=== PATIENT | female | born 1965 | race Caucasian/White ===

== ENCOUNTER 2017-04-23 11:00 | Outpatient (RCR) | payer MEDICAID, SELFPAY ==
--- NOTE | 2017-03-20 16:10 | HMH.PTOPEV ---
Outpatient Rehab Evaluation Rehab OP Evaluation Start: 03/20/17 13:02 Freq: Status: Active Protocol: Document 03/20/17 13:03 FANY (Rec: 03/20/17 13:36 FANY [id number]) Electronically Signed By Sundar Mcmanus, PT 03/20/17 13:03 Outpatient Therapy Subjective History Subjective History Pt reports h/o chronic L elbow and wrist pain beginning ~6 months ago. Pt reports pain radiates from L wrist (ulnar side) to L elbow (ulnar side), with intermittent episodes of N&T in L 4th and 5th digits. PMH: bilateral CT release sx's ~1 yr ago. 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 Strength Symptom Type Ache Sharp Dull Numbness Tingling Symptoms Relieved By Heat Symptoms Aggravated By Physical Activity Lifting Prior Functional Limitations Lifting Housework Current Functional Limitations Reaching Lifting Symptom Description Constant but Variable Level of pain today (0-10) 7 Pain scale - at its best (0-10) 7 Pain scale - at its worst (0-10) 7 Shoulder/Elbow Eval Shoulder Objective Measurements Elbow Objective Measurements Palpation Tenderness Elbow Palpation Finding Tenderness tenderness over the medial epicondyle left elbow exam standard Elbow MMT Bilateral Elbow/Forearm Strength Reason Not WFL Measured Elbow Special Tests Elbow Tinel's Sign Negative Right Positive Left Wrist/Hand Eval Palpation Tenderness/Visual Exam Wrist pain left tenderness wrist exam standard left Wrist/Hand Palpation Findings Tenderness Wrist/Hand Palpation Overall Comment CARPAL TUNNEL, CUBITAL TUNNEL Flexibility Deficits Wrist Extensors Muscle Length (R) WFL (L) WFL Wrist Flexors Muscle Length (R) WFL (L) WFL Supinator Muscle Length (R) WFL (L) WFL Pronator Muscle Length (R) WFL (L) WFL Wrist Range of Motion Wrist ROM Reason Not Measured Within Functional Limits Wrist Manual Muscle Testing Right Wrist Strength Reason Not Measured WFL Left Wrist Extension Strength
== END 2017-04-23 11:01 | disposition home or self-care (01) ==
LOC: PT 11:00
PROVIDERS: Family Provider Emergency Medicine; PCP Emergency Medicine; Visit Provider Orthopaedic Surgery
DX: G56.23 Lesion of ulnar nerve, bilateral upper limbs (principal)
CPT/HCPCS: 97010; 97014; 97033; 97035; 97110; 97140; 97163; G0283

== ENCOUNTER → 2017-05-25 09:59 | Outpatient (CLI) | payer MEDICAID, SELFPAY | PROVIDERS: Family Provider Emergency Medicine; PCP Emergency Medicine; Visit Provider Emergency Medicine | DX: J44.9 Chronic obstructive pulmonary disease, unspecified (principal) | CPT/HCPCS: 94060 ==

== ENCOUNTER → 2017-05-28 13:03 | Outpatient (POV) | payer MEDICAID, SELFPAY ==
[2017-05-28 13:24] VITALS: BP 139/88; PULSE 76; RESP 18; TEMP 36.2; O2SAT 95; BMI 23.3
--- NOTE | 2017-05-28 13:49 | HMH.PAINSOAP ---
[facility] Pain Management SOAP Note Subjective:: Patient is a pleasant 51-year-old white female who presents today as a follow-up after her trigger point injections back in February. Patient states that she had 80% relief for up to 8 weeks. Patient's pain has come back. Patient rates her pain a 7 out of 10 today. Patient's pain mainly in her upper neck going down through her bilateral trapezius. She states that she gets knots in these areas. Patient is currently being medically managed with gabapentin 800 mg 1 p.o. 4 times daily from her primary care physician. Due to past urine drug screens we are unable to prescribe her medications. ROS General: no recent weight change, no fever, no sleep disturbances Respiratory: no cough, no shortness of air, no recurring pulmonary infections Cardiovascular/Peripheral Vascular: No chest pain, No palpitations, no edema, no shortness of breath. Gastrointestinal: no incontinence, normal bowel movements reported Genitourinary: no incontinence Musculoskeletal: Neck pain, bilateral trapezius pain Psychiatric: normal mood/ affect, Neurological: [denies weakness in extremities], [denies balance issues] Objective:: Physical Exam General: Alert and oriented x3, no acute distress, pleasant and cooperative, [on room air] Lungs: Resps E/U, Symmetrical chest expansion, Eyes: PERRL Musculoskeletal: Flexion and extension of cervical spine somewhat guarded secondary to pain, deep tendon reflexes normal, strength in upper and lower extremities [5/5], normal gait noted, palpable trigger points noted on bilateral cervical paraspinous and trapezius. Neurological: speech clear, iron piler equal, no gross sensory deficits Assessment:: Myofascial pain syndrome Plan:: We will schedule trigger point injections of the cervical paraspinous bilaterally along with the bilateral trapezius. Patient gets good relief from these injections. I will follow-up with this patient 2 weeks after her injections and reassess her symptoms. Patient's tried and failed conservative measures such as physical therapy and anti-inflammatories. This note was dictated using voice recognition software and may contain errors or omissions
--- NOTE | 2017-05-28 13:52 | P.CONS_ITS ---
[facility] Pain Management SOAP Note Subjective:: Patient is a pleasant 51-year-old white female who presents today as a follow- up after her trigger point injections back in February. Patient states that she had 80% relief for up to 8 weeks. Patient's pain has come back. Patient rates her pain a 7 out of 10 today. Patient's pain mainly in her upper neck going down through her bilateral trapezius. She states that she gets knots in these areas. Patient is currently being medically managed with gabapentin 800 mg 1 p.o. 4 times daily from her primary care physician. Due to past urine drug screens we are unable to prescribe her medications. ROS General: no recent weight change, no fever, no sleep disturbances Respiratory: no cough, no shortness of air, no recurring pulmonary infections Cardiovascular/Peripheral Vascular: No chest pain, No palpitations, no edema, no shortness of breath. Gastrointestinal: no incontinence, normal bowel movements reported Genitourinary: no incontinence Musculoskeletal: Neck pain, bilateral trapezius pain Psychiatric: normal mood/ affect, Neurological: [denies weakness in extremities], [denies balance issues] Objective:: Physical Exam General: Alert and oriented x3, no acute distress, pleasant and cooperative, [ on room air] Lungs: Resps E/U, Symmetrical chest expansion, Eyes: PERRL Musculoskeletal: Flexion and extension of cervical spine somewhat guarded secondary to pain, deep tendon reflexes normal, strength in upper and lower extremities [5/5], normal gait noted, palpable trigger points noted on bilateral cervical paraspinous and trapezius. Neurological: speech clear, auto body customizer equal, no gross sensory deficits Assessment:: Myofascial pain syndrome Plan:: We will schedule trigger point injections of the cervical paraspinous bilaterally along with the bilateral trapezius. Patient gets good relief from these injections. I will follow-up with this patient 2 weeks after her injections and reassess her symptoms. Patient's tried and failed conservative measures such as physical therapy and anti-inflammatories. This note was dictated using voice recognition software and may contain errors or omissions
== END ==
PROVIDERS: Family Provider Emergency Medicine; PCP Emergency Medicine; Visit Provider Clinical Nurse Specialist Family Health
DX: M79.1 Myalgia (principal)
CPT/HCPCS: 99212

== ENCOUNTER 2017-06-13 11:45 | Day surgery (SDC) | payer MEDICAID, SELFPAY ==
[2017-06-13 12:38] VITALS: BP 138/94; BP 144/83; PULSE 73; PULSE 77; RESP 16; RESP 18; TEMP 36.7; O2SAT 100; O2SAT 98; BMI 23.0; BMI 26.0
[2017-06-13 13:12] VITALS: BP 132/86; PULSE 88; RESP 18
[2017-06-13 13:14] VITALS: BP 135/87; PULSE 87; RESP 20
[2017-06-13 13:20] VITALS: BP 136/90; PULSE 63; RESP 18; O2SAT 99
--- NOTE | 2017-06-13 13:24 | HMH.PMPROC ---
- Procedure Date: 06/13/17 Time: 13:25 Anesthesiologist:: Arjun Lu MD Complications:: None Pre-procedure Diagnosis:: Myofascial pain syndrome, neck pain Post-procedure Diagnosis:: Same Indications for Procedure:: This patient is a pleasant 51-year-old white female who we are treating for neck pain and upper back pain over the upper trapezius muscles with myofascial pain syndrome. She is received trigger point injections in the past. Her last one was in February. She got 80% relief for up to 8 weeks. Her pain is starting to return. We will do repeat trigger point injections today. Procedure Details:: Procedure: Trigger point injections ?8 to bilateral cervical paraspinous and upper trapezius muscles Informed consent was obtained and the risk and benefits of the procedure was explained to the patient. Patient was taken to the procedure room. Neck and upper trapezius area were prepped using ChloraPrep. Triggerpoints were palpated and marked. Each of these trigger points were injected with 3 mL bupivacaine 0.25% and Depo-Medrol 10 mg. A total of 8 trigger points, 4 on each side were injected using a total of 80 mg Depo-Medrol. Patient tolerated the procedure well with no complications. Plan and Disposition:: We will follow-up with this patient in 2 weeks. We will reevaluate her symptoms at that time.
== END 2017-06-13 13:25 | disposition home or self-care (01) ==
LOC: SC.PAINP 11:46
PROVIDERS: Family Provider Emergency Medicine; PCP Emergency Medicine; Visit Provider Anesthesiology
DX: M79.1 Myalgia (principal); M54.2 Cervicalgia
CPT/HCPCS: 20552; J1040

== ENCOUNTER → 2017-07-03 09:34 | Outpatient (POV) | payer MEDICAID, SELFPAY ==
[2017-07-03 09:58] VITALS: BP 145/82; PULSE 93; RESP 18; BMI 22.4
--- NOTE | 2017-07-03 13:16 | P.CONS_ITS ---
[facility] Pain Management SOAP Note Subjective:: Patient is a pleasant 51-year-old white female who we are treating for neck pain and upper back pain. Patient has myofascial pain syndrome. Patient is following up after receiving trigger point injections of the bilateral cervical paraspinous and upper trapezius muscles. Patient states she had 80-90% relief of her pain for 3 weeks. Patient states she is now having some additional neck pain. She is also having weird sensation when she turns her neck. Patient is having some numbness and tingling in her arms and some new onset weakness. She rates the pain a 6 out of 10 today. ROS General: no recent weight change, no fever, no sleep disturbances Respiratory: no cough, no shortness of air, no recurring pulmonary infections Cardiovascular/Peripheral Vascular: No chest pain, No palpitations, no edema, no shortness of breath. Gastrointestinal: no incontinence, normal bowel movements reported Genitourinary: no incontinence Musculoskeletal: Back pain, neck pain, myofascial pain, arm pain bilaterally Psychiatric: normal mood/ affect, Neurological: Weakness in upper extremities at times, [denies balance issues] Objective:: Physical Exam General: Alert and oriented x3, no acute distress, pleasant and cooperative, [ on room air] Lungs: Resps E/U, Symmetrical chest expansion, Eyes: PERRL Musculoskeletal: Flexion and extension of cervical spine somewhat guarded secondary to pain, deep tendon reflexes normal, strength in upper and lower extremities [5/5], normal gait noted Neurological: speech clear, cryptologic technician operator/analyst equal, no gross sensory deficits Assessment:: Degenerative disc disease of the cervical spine, myofascial pain syndrome Plan:: We will order a new cervical MRI. Patient has had no cervical imaging lately. Patient is having increased pain along with some weakness in her upper extremities. I will follow-up with this patient after her MRI is completed. This note was dictated using voice recognition software and may contain errors or omissions
== END ==
PROVIDERS: Family Provider Emergency Medicine; PCP Emergency Medicine; Visit Provider Clinical Nurse Specialist Family Health
DX: M50.30 Other cervical disc degeneration, unspecified cervical region (principal); M79.1 Myalgia
CPT/HCPCS: 99212

== ENCOUNTER → 2017-07-09 07:54 | Outpatient (CLI) | payer MEDICAID, SELFPAY ==
--- NOTE | 2017-07-09 07:58 | MR_ITS ---
MR cervical spine wo con, MR 3-d myelogram/MRCP HISTORY: PT states neck pain, progressing neck pain. ITS.REASON: NECK PAIN ORDERING PHYSICIAN: Arjun Lu MD PATIENT AGE: 51 years COMPARISON: Prior MRI 05/02/16, Prior X-Ray 05/22/13 TECHNIQUE: Standard multiplanar multiecho sequences are performed without contrast. 3-D MIP and myelographic images are also rendered and reviewed FINDINGS: The craniocervical junction has an unremarkable appearance. Normal alignment. C2-C3: Unremarkable. C3-C4: Mild degenerative disc disease. C4-C5: Degenerative disc disease with bulging disc with uncovertebral hypertrophy greater on the left with mild left foraminal narrowing. C5-C6: Degenerative disc disease with mild concentric bulging disc. C6-C7 and C7-T1 show mild degenerative disc disease. Type II endplate changes involving the posterior aspect of the endplate at C4-5 and C6-C7. IMPRESSION: 1. Overall no significant change multilevel cervical spondylosis with degenerative disc disease, bulging disc, and uncovertebral arthrosis. Please see above for detailed description at each level. 2. No canal stenosis or extruded herniated disc.
== END ==
PROVIDERS: Family Provider Emergency Medicine; PCP Emergency Medicine; Visit Provider Anesthesiology
DX: M54.2 Cervicalgia (principal)
CPT/HCPCS: 72141; 76376

== ENCOUNTER → 2017-07-23 09:56 | Outpatient (POV) | payer MEDICAID, SELFPAY ==
[2017-07-23 10:02] VITALS: BP 144/92; PULSE 71; RESP 18; TEMP 36.7; O2SAT 99; BMI 23.0
--- NOTE | 2017-07-23 10:23 | HMH.PAINSOAP ---
[facility] Pain Management SOAP Note Subjective:: Patient is a pleasant 51-year-old white female we are treating for neck and upper back pain. Patient has chronic pain secondary to myofascial pain syndrome. Patient seen good relief from trigger point injections. She states that she gets 80-90% relief of her pain for up to a month or 2. Patient has tried and failed physical therapy. Patient rates her pain a 7 out of 10 today. ROS General: no recent weight change, no fever, no sleep disturbances Respiratory: no cough, no shortness of air, no recurring pulmonary infections Cardiovascular/Peripheral Vascular: No chest pain, No palpitations, no edema, no shortness of breath. Gastrointestinal: no incontinence, normal bowel movements reported Genitourinary: no incontinence Musculoskeletal: Myofascial pain Psychiatric: normal mood/ affect, [denies depression], [denies anxiety] Neurological: [denies weakness in extremities], [denies balance issues] Objective:: Physical Exam General: Alert and oriented x3, no acute distress, pleasant and cooperative, [on room air] Lungs: Resps E/U, Symmetrical chest expansion Eyes: PERRL Musculoskeletal: Flexion and extension of cervical spine somewhat guarded secondary to pain, deep tendon reflexes normal, strength in upper and lower extremities [5/5], normal gait noted, palpable trigger points cervical paraspinous bilateral Neurological: speech clear, machine folder equal, no gross sensory deficits Assessment:: Myofascial pain syndrome, degenerative disc disease of the lumbar spine Plan:: We will plan trigger point injections bilaterally of the cervical paraspinous. I will follow-up with the patient after her injections. Tried and failed medications, anti-inflammatories, physical therapy. Patient has had good relief with injections in the past. This note was dictated using voice recognition software and may contain errors or omissions
--- NOTE | 2017-07-23 10:27 | P.CONS_ITS ---
[facility] Pain Management SOAP Note Subjective:: Patient is a pleasant 51-year-old white female we are treating for neck and upper back pain. Patient has chronic pain secondary to myofascial pain syndrome. Patient seen good relief from trigger point injections. She states that she gets 80-90% relief of her pain for up to a month or 2. Patient has tried and failed physical therapy. Patient rates her pain a 7 out of 10 today. ROS General: no recent weight change, no fever, no sleep disturbances Respiratory: no cough, no shortness of air, no recurring pulmonary infections Cardiovascular/Peripheral Vascular: No chest pain, No palpitations, no edema, no shortness of breath. Gastrointestinal: no incontinence, normal bowel movements reported Genitourinary: no incontinence Musculoskeletal: Myofascial pain Psychiatric: normal mood/ affect, [denies depression], [denies anxiety] Neurological: [denies weakness in extremities], [denies balance issues] Objective:: Physical Exam General: Alert and oriented x3, no acute distress, pleasant and cooperative, [ on room air] Lungs: Resps E/U, Symmetrical chest expansion Eyes: PERRL Musculoskeletal: Flexion and extension of cervical spine somewhat guarded secondary to pain, deep tendon reflexes normal, strength in upper and lower extremities [5/5], normal gait noted, palpable trigger points cervical paraspinous bilateral Neurological: speech clear, word processing operator equal, no gross sensory deficits Assessment:: Myofascial pain syndrome, degenerative disc disease of the lumbar spine Plan:: We will plan trigger point injections bilaterally of the cervical paraspinous. I will follow-up with the patient after her injections. Tried and failed medications, anti-inflammatories, physical therapy. Patient has had good relief with injections in the past. This note was dictated using voice recognition software and may contain errors or omissions
== END ==
PROVIDERS: Family Provider Emergency Medicine; PCP Emergency Medicine; Visit Provider Clinical Nurse Specialist Family Health
DX: M79.1 Myalgia (principal)
CPT/HCPCS: 99212

== ENCOUNTER 2017-07-31 10:00 | Outpatient (RCR) | payer MEDICAID, SELFPAY ==
--- NOTE | 2017-06-29 13:41 | HMH.PTOPEV ---
Rehab Outpatient Evaluation Rehab OP Evaluation Start: 06/29/17 13:26 Freq: Status: Active Protocol: Document 06/29/17 13:27 TFRY (Rec: 06/29/17 13:41 TFRY [id number]) Electronically Signed By Soheila Gaffney OT 06/29/17 13:27 Outpatient Therapy Subjective History Subjective History THIS IS A 51 YEAR OLD RIGHT HANDED FEMALE REFERRED TO OCCUPATIONAL THERAPY FOR LEFT CUBITAL TUNNEL. PATIENT STATES THAT THE PROBLEM HAS BEEN ONGOING FOR THE PAST 6-7 MONTHS. SHE STATES THAT SHE HAS CARPAL TUNNEL RELEASES ON BOTH HANDS APPROXIMATELY 1 YEAR AGO. 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 Strength Symptom Type Ache Throb Sharp Symptoms Relieved By Heat Symptoms Aggravated By Physical Activity Prior Functional Limitations None Current Functional Limitations Lifting Housework Sleeping Symptom Description Constant but Variable Level of pain today (0-10) 6 Pain scale - at its best (0-10) 3 Pain scale - at its worst (0-10) 8 Shoulder/Elbow Eval Shoulder Objective Measurements Elbow Objective Measurements Palpation Tenderness Elbow Palpation Finding Tenderness tenderness elbow exam standard left tenderness over the medial epicondyle left elbow exam standard Elbow ROM Left full ROM elbow exam standard left Elbow Extension Active Range of Motion ( WFL degrees) Elbow Flexion Active Range of Motion ( WFL degrees) Elbow Pronation of Forearm Range of WFL Motion (degrees) Elbow Supination of Forearm Range of WFL Motion (degrees) Elbow MMT Elbow Flexion Strength Grade 3+ Fair+ Elbow Extension Strength Grade 3+ Fair+ Wrist/Hand Eval Wrist Range of Motion Wrist ROM Reason Not Measured Within Functional Limits Wrist Extension Active Range of Motion ( WFL degrees) Wrist Flexion Active Range of Motion ( WFL degrees) Wrist Radial Deviation Active Range of WFL Motion (degrees) Wrist Ulnar Deviation Active Range of WFL Motion (degrees) Forearm Supination Active Range of WFL Motion (degrees) Forearm Pronation Active Range of Motion WFL (degrees) Wrist Manual Muscle Testing Left Wrist Extension Strength Grade 3 Fair Wrist Flexion Strength Grade
== END 2017-07-31 10:01 | disposition home or self-care (01) ==
LOC: OT 10:00
PROVIDERS: Family Provider Emergency Medicine; PCP Emergency Medicine; Visit Provider Orthopaedic Surgery
DX: G56.22 Lesion of ulnar nerve, left upper limb (principal)
CPT/HCPCS: 97014; 97033; 97035; 97140; 97163; 97165; G0283

== ENCOUNTER → 2017-09-04 10:32 | Outpatient (POV) | payer MEDICAID, SELFPAY ==
[2017-09-04 10:46] VITALS: BP 96/74; PULSE 68; RESP 20; O2SAT 99; BMI 23.0
--- NOTE | 2017-09-04 10:57 | HMH.PAINSOAP ---
[facility] Pain Management SOAP Note Subjective:: Patient is a pleasant 51-year-old white female who we are treating for neck pain along with bilateral arm pain. Patient also has some lower back pain as well. Patient has been receiving trigger point injections and cervical epidural steroid injections. Patient does get relief from these however she is interested in a more long-term solution to her pain. Patient and I discussed neuro stimulation. Patient is not a narcotic candidate due to inappropriate drug screens in the past. Patient rates her pain a 7 out of 10 today mostly in her neck down her bilateral arms. Patient states that all of her fingers are numb. Patient is also having low back pain radiating down into her legs today. ROS General: no recent weight change, no fever, no sleep disturbances Respiratory: no cough, no shortness of air, no recurring pulmonary infections Cardiovascular/Peripheral Vascular: No chest pain, No palpitations, no edema, no shortness of breath. Gastrointestinal: no incontinence, normal bowel movements reported Genitourinary: no incontinence Musculoskeletal: Neck pain, bilateral arm pain, back pain, bilateral leg pain Psychiatric: normal mood/ affect, Neurological: [denies weakness in extremities], [denies balance issues] Objective:: Physical Exam General: Alert and oriented x3, no acute distress, pleasant and cooperative, [on room air] Lungs: Resps E/U, Symmetrical chest expansion, Eyes: PERRL Musculoskeletal: Flexion and extension of cervical and lumbar spine somewhat guarded secondary to pain, deep tendon reflexes normal, strength in upper and lower extremities [5/5], [abnormal gait noted] Neurological: speech clear, vehicle fuel systems converter equal, no gross sensory deficits Assessment:: Generative disc disease of cervical spine with cervical radiculopathy and myofascial pain syndrome, degenerative disc disease of the lumbar spine with lumbar radiculopathy Plan:: I gave the patient [employer] information. I believe that this may be beneficial. I discussed the trialing process with her. Patient is going to call our office if she is interested in pursuing this. Patient has tried and failed anti-inflammatories, medications, physical therapy, stretching therapy, injections. This note was dictated using voice recognition software and may contain errors or omissions
--- NOTE | 2017-09-04 11:00 | P.CONS_ITS ---
[facility] Pain Management SOAP Note Subjective:: Patient is a pleasant 51-year-old white female who we are treating for neck pain along with bilateral arm pain. Patient also has some lower back pain as well. Patient has been receiving trigger point injections and cervical epidural steroid injections. Patient does get relief from these however she is interested in a more long-term solution to her pain. Patient and I discussed neuro stimulation. Patient is not a narcotic candidate due to inappropriate drug screens in the past. Patient rates her pain a 7 out of 10 today mostly in her neck down her bilateral arms. Patient states that all of her fingers are numb. Patient is also having low back pain radiating down into her legs today. ROS General: no recent weight change, no fever, no sleep disturbances Respiratory: no cough, no shortness of air, no recurring pulmonary infections Cardiovascular/Peripheral Vascular: No chest pain, No palpitations, no edema, no shortness of breath. Gastrointestinal: no incontinence, normal bowel movements reported Genitourinary: no incontinence Musculoskeletal: Neck pain, bilateral arm pain, back pain, bilateral leg pain Psychiatric: normal mood/ affect, Neurological: [denies weakness in extremities], [denies balance issues] Objective:: Physical Exam General: Alert and oriented x3, no acute distress, pleasant and cooperative, [ on room air] Lungs: Resps E/U, Symmetrical chest expansion, Eyes: PERRL Musculoskeletal: Flexion and extension of cervical and lumbar spine somewhat guarded secondary to pain, deep tendon reflexes normal, strength in upper and lower extremities [5/5], [abnormal gait noted] Neurological: speech clear, conduit reamer operator equal, no gross sensory deficits Assessment:: Generative disc disease of cervical spine with cervical radiculopathy and myofascial pain syndrome, degenerative disc disease of the lumbar spine with lumbar radiculopathy Plan:: I gave the patient [employer] information. I believe that this may be beneficial. I discussed the trialing process with her. Patient is going to call our office if she is interested in pursuing this. Patient has tried and failed anti-inflammatories, medications, physical therapy , stretching therapy, injections. This note was dictated using voice recognition software and may contain errors or omissions
== END ==
PROVIDERS: Family Provider Emergency Medicine; PCP Emergency Medicine; Visit Provider Clinical Nurse Specialist Family Health
DX: M54.16 Radiculopathy, lumbar region (principal); M54.12 Radiculopathy, cervical region
CPT/HCPCS: 99212

== ENCOUNTER → 2017-09-18 09:39 | Outpatient (POV) | payer MEDICAID, SELFPAY ==
[2017-09-18 10:16] VITALS: BP 139/94; PULSE 87; RESP 18; O2SAT 97; BMI 23.0
--- NOTE | 2017-09-18 10:37 | HMH.PAINSOAP ---
[facility] Pain Management SOAP Note Subjective:: Patient is a pleasant 51-year-old white female who we are treating for neck pain along with bilateral arm pain also for lower back pain and bilateral leg pain. Patient and I had a long discussion in regards to nerve stimulation at her last visit. Patient returns today to discuss this. Patient and I talked about utilizing a nuvectra system in order to cover both cervical and low back pain. Patient would like to proceed with this she rates her pain a 6 out of 10 today. ROS General: no recent weight change, no fever, no sleep disturbances Respiratory: no cough, no shortness of air, no recurring pulmonary infections Cardiovascular/Peripheral Vascular: No chest pain, No palpitations, no edema, no shortness of breath. Gastrointestinal: no incontinence, normal bowel movements reported Genitourinary: no incontinence Musculoskeletal: Neck pain, arm pain, back pain, leg pain Psychiatric: normal mood/ affect Neurological: [denies weakness in extremities], [denies balance issues] Objective:: Physical Exam General: Alert and oriented x3, no acute distress, pleasant and cooperative, [on room air] Lungs: Resps E/U, Symmetrical chest expansion, Eyes: PERRL Musculoskeletal: Flexion and extension of cervical and lumbar spine somewhat guarded secondary to pain, deep tendon reflexes normal, strength in upper and lower extremities [5/5], [abnormal gait noted] Neurological: speech clear, head animal trainer equal, no gross sensory deficits Assessment:: 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 Patient and I discussed trialing and implantation. I will follow-up with this patient after psychological evaluation or her trial. This note was dictated using voice recognition software and may contain errors or omissions
--- NOTE | 2017-09-18 10:40 | P.CONS_ITS ---
[facility] Pain Management SOAP Note Subjective:: Patient is a pleasant 51-year-old white female who we are treating for neck pain along with bilateral arm pain also for lower back pain and bilateral leg pain. Patient and I had a long discussion in regards to nerve stimulation at her last visit. Patient returns today to discuss this. Patient and I talked about utilizing a nuvectra system in order to cover both cervical and low back pain. Patient would like to proceed with this she rates her pain a 6 out of 10 today. ROS General: no recent weight change, no fever, no sleep disturbances Respiratory: no cough, no shortness of air, no recurring pulmonary infections Cardiovascular/Peripheral Vascular: No chest pain, No palpitations, no edema, no shortness of breath. Gastrointestinal: no incontinence, normal bowel movements reported Genitourinary: no incontinence Musculoskeletal: Neck pain, arm pain, back pain, leg pain Psychiatric: normal mood/ affect Neurological: [denies weakness in extremities], [denies balance issues] Objective:: Physical Exam General: Alert and oriented x3, no acute distress, pleasant and cooperative, [ on room air] Lungs: Resps E/U, Symmetrical chest expansion, Eyes: PERRL Musculoskeletal: Flexion and extension of cervical and lumbar spine somewhat guarded secondary to pain, deep tendon reflexes normal, strength in upper and lower extremities [5/5], [abnormal gait noted] Neurological: speech clear, 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 Patient and I discussed trialing and implantation. I will follow-up with this patient after psychological evaluation or her trial. This note was dictated using voice recognition software and may contain errors or omissions
== END ==
PROVIDERS: Family Provider Emergency Medicine; PCP Emergency Medicine; Visit Provider Clinical Nurse Specialist Family Health
DX: M54.16 Radiculopathy, lumbar region (principal); M54.12 Radiculopathy, cervical region
CPT/HCPCS: 99212

== ENCOUNTER → 2017-10-03 11:21 | Outpatient (POV) | payer MEDICAID, SELFPAY ==
[2017-10-03 11:33] VITALS: BP 146/88; PULSE 82; RESP 18; O2SAT 98; BMI 23.0
--- NOTE | 2017-10-03 12:05 | HMH.PMCON ---
Assessment and Plan (1) Cervical radiculopathy due to degenerative joint disease of spine Current visit: Yes Status: Acute Category: Medical Code(s): M47.22 - Other spondylosis with radiculopathy, cervical region Consideration for pain stimulator implant trial with placement of permanent system if indicated (2) Lumbar disc disease with radiculopathy Current visit: No Status: Chronic Category: Medical Code(s): M51.16 - Intervertebral disc disorders with radiculopathy, lumbar region Consideration for pain stimulator implant trial with placement of permanent system if indicated HPI - Data of Consult Patient: new to practice Consult date: 10/03/17 Requesting Physician: David Camara MD Primary Care Provider: Steven Macario MD Family Provider: Steven Macario MD - Consult Narrative Reason for consult: Consideration for pain stimulator trial for management of cervical pain History of present illness: Ms. Lindsay is a 51 year old female referred for consideration for pain stimulator implant trial for treatment of cervical disc disease with bilateral arm pain and discomfort. She also has some lumbar disc disease. She has had injections and other attempts at pain relief without success. For epidural pain stimulator system for management of these pain areas CC: David Camara MD [facility] History Medical History: Reports:: Anxiety, Gastroesophageal Reflux Disease(GERD), Hepatitis, Hyperlipidemia, Hypertension Denies:: Cancer, Diabetes Mellitus Type 1, Diabetes Mellitus Type 2, MRSA, Seizures Other Medical History: Reports: Fibromyalgia, Sinus Problems, Other Comment: Illnesses-coronary artery disease with [place] 2014?on no medications, hypertension, hyperlipidemia, anxiety and depression, history of MRSA of the wrist, cervical disc disease, COPD Laterality Cases: Bilateral: Carpal Tunnel Release, Tonsillectomy Other Surgeries: Yes: Appendectomy, Hysterectomy-Total, Tubal Ligation Amputation: No Fractures: No Comment: Operations-tonsillectomy, hysterectomy, appendectomy, bilateral carpal tunnel surgery - *Social History Smoking Status: Current every day smoker Tobacco Type: cigarettes # Packs/Day (cigarettes): 1 Alcohol Intake: never Substance Use Type: former substance user Occupational Status: unemployed Housing: apartment Household Members: other - Psychiatric History Expresses thoughts of harming self/others: None Suicide Plan Description: No Plan Pschychiatric History:: Reports:: Anxiety *Family Hx:: Cancer Review of Systems - Review of Systems Review of systems:: pertinent systems reviewed and negative unless documented below - *Musculoskeletal Reports back pain, Reports radiating pain into limb - *Neurologic Reports numbness Meds Allergies Allergy/AdvReac Type Severity Reaction Status Date / Time No Known Allergies Allergy Verified 08/08/17 08:16 Objective Vital signs: Pulse Resp BP Pulse Ox 82 18 146/88 98 10/03/17 11:33 10/03/17 11:33 10/03/17 11:33 10/03/17 11:33 Comments: Healthy appearing white female in no distress - Routine Chest/Breast/Axilla Exam Comments: Is clear - *Routine Cardiovascular Exam Present: RRR - *Routine Abdominal Exam Present: soft
--- NOTE | 2017-10-03 12:12 | P.CONS_ITS ---
Assessment and Plan (1) Cervical radiculopathy due to degenerative joint disease of spine Current visit: Yes Status: Acute Category: Medical Code(s): M47.22 - Other spondylosis with radiculopathy, cervical region Consideration for pain stimulator implant trial with placement of permanent system if indicated (2) Lumbar disc disease with radiculopathy Current visit: No Status: Chronic Category: Medical Code(s): M51.16 - Intervertebral disc disorders with radiculopathy, lumbar region Consideration for pain stimulator implant trial with placement of permanent system if indicated HPI - Data of Consult Patient: new to practice Consult date: 10/03/17 Requesting Physician: David Camara MD Primary Care Provider: Steven Macario MD Family Provider: Steven Macario MD - Consult Narrative Reason for consult: Consideration for pain stimulator trial for management of cervical pain History of present illness: Ms. Lindsay is a 51 year old female referred for consideration for pain stimulator implant trial for treatment of cervical disc disease with bilateral arm pain and discomfort. She also has some lumbar disc disease. She has had injections and other attempts at pain relief without success. For epidural pain stimulator system for management of these pain areas CC: David Camara MD [facility] History Medical History: Reports:: Anxiety, Gastroesophageal Reflux Disease(GERD), Hepatitis, Hyperlipidemia, Hypertension Denies:: Cancer, Diabetes Mellitus Type 1, Diabetes Mellitus Type 2, MRSA, Seizures Other Medical History: Reports: Fibromyalgia, Sinus Problems, Other Comment: Illnesses-coronary artery disease with [place] 2014?on no medications, hypertension, hyperlipidemia, anxiety and depression, history of MRSA of the wrist, cervical disc disease, COPD Laterality Cases: Bilateral: Carpal Tunnel Release, Tonsillectomy Other Surgeries: Yes: Appendectomy, Hysterectomy-Total, Tubal Ligation Amputation: No Fractures: No Comment: Operations-tonsillectomy, hysterectomy, appendectomy, bilateral carpal tunnel surgery - *Social History Smoking Status: Current every day smoker Tobacco Type: cigarettes # Packs/Day (cigarettes): 1 Alcohol Intake: never Substance Use Type: former substance user Occupational Status: unemployed Housing: apartment Household Members: other - Psychiatric History Expresses thoughts of harming self/others: None Suicide Plan Description: No Plan Pschychiatric History:: Reports:: Anxiety *Family Hx:: Cancer Review of Systems - Review of Systems Review of systems:: pertinent systems reviewed and negative unless documented below - *Musculoskeletal Reports back pain, Reports radiating pain into limb - *Neurologic Reports numbness Meds Allergies Allergy/AdvReac Type Severity Reaction Status Date / Time No Known Allergies Allergy Verified 08/08/17 08:16 Objective Vital signs: Pulse Resp BP Pulse Ox 82 18 146/88 98 10/03/17 11:33 10/03/17 11:33 10/03/17 11:33 10/03/17 11:33 Comments: Healthy appearing white female in no distress - Routine Chest/Breast/Axilla Exam Comments: Is clear - *Routine Cardiovascular Exam Present: RRR - *Routine Abdominal Exam Present: soft
== END ==
PROVIDERS: Family Provider Emergency Medicine; PCP Emergency Medicine; Visit Provider Surgery
DX: M47.22 Other spondylosis with radiculopathy, cervical region (principal); M51.16 Intervertebral disc disorders with radiculopathy, lumbar region

== ENCOUNTER → 2017-10-29 13:30 | Outpatient (POV) | payer MEDICAID, SELFPAY | PROVIDERS: Family Provider Emergency Medicine; PCP Emergency Medicine; Visit Provider Specialist | DX: R20.2 Paresthesia of skin (principal) | CPT/HCPCS: 95886; 95909 ==

== ENCOUNTER → 2018-01-25 09:59 | Outpatient (POV) | payer MEDICAID, SELFPAY ==
[2018-01-25 10:36] VITALS: BP 148/80; PULSE 73; RESP 18; O2SAT 98; BMI 22.1
--- NOTE | 2018-01-25 11:51 | HMH.PAINSOAP ---
[facility] Pain Management SOAP Note Subjective:: This patient is a pleasant 52-year-old white female who we are treating for neck pain with bilateral arm pain as well as low back pain with bilateral leg pain. She has failed all conservative therapy including injections, physical therapy, oral medications and she is not a surgical candidate. She is undergone spinal cord stimulator trial with good relief of her low back pain and leg symptoms and some relief of her neck pain and arm symptoms. Overall he is 70-80% better. This was a successful trial. She wants to proceed with permanent placement. Again due to difficulty of percutaneous placement and capturing of neck pain with cervical arm pain we will refer her to Dr. Schafer for paddle lead placement. Paddle leads need to be placed at C2-C3 to cover neck pain and bilateral arm pain and T7-T8 cover low back pain and leg pain Objective:: Alert and oriented x3 no acute distress. Patient has an antalgic gait. Motor strength of the upper and lower extremities is 5/5. There is no gross sensory deficit. There is reduce range of motion of the cervical spine and lumbar spine. Leads were removed intact with no signs of infection or redness. Assessment:: Degenerative disc disease of the cervical spine with cervical radiculopathy symptoms. Degenerative disease of lumbar spine with lumbar radiculopathy symptoms. Plan:: This was a successful spinal cord stimulator trial. We will refer her to Dr. Schafer for permanent placement. Cervical leads need to be at C2-C3 to cover neck and arm pain and thoracic leads need to be at T7-T8 to cover low back and leg pain We will follow-up with her after permanent placement of spinal cord stimulator.
--- NOTE | 2018-01-25 11:56 | P.CONS_ITS ---
[facility] Pain Management SOAP Note Subjective:: This patient is a pleasant 52-year-old white female who we are treating for neck pain with bilateral arm pain as well as low back pain with bilateral leg pain. She has failed all conservative therapy including injections, physical therapy, oral medications and she is not a surgical candidate. She is undergone spinal cord stimulator trial with good relief of her low back pain and leg symptoms and some relief of her neck pain and arm symptoms. Overall he is 70-80% better. This was a successful trial. She wants to proceed with permanent placement. Again due to difficulty of percutaneous placement and capturing of neck pain with cervical arm pain we will refer her to Dr. Schafer for paddle lead placement. Paddle leads need to be placed at C2-C3 to cover neck pain and bilateral arm pain and T7-T8 cover low back pain and leg pain Objective:: Alert and oriented x3 no acute distress. Patient has an antalgic gait. Motor strength of the upper and lower extremities is 5/5. There is no gross sensory deficit. There is reduce range of motion of the cervical spine and lumbar spine. Leads were removed intact with no signs of infection or redness. Assessment:: Degenerative disc disease of the cervical spine with cervical radiculopathy s ymptoms. Degenerative disease of lumbar spine with lumbar radiculopathy symptoms. Plan:: This was a successful spinal cord stimulator trial. We will refer her to Dr. Schafer for permanent placement. Cervical leads need to be at C2-C3 to cover neck and arm pain and thoracic leads need to be at T7-T8 to cover low back and leg pain We will follow-up with her after permanent placement of spinal cord stimulator.
== END ==
PROVIDERS: PCP Emergency Medicine; Visit Provider Anesthesiology
DX: M50.10 Cervical disc disorder with radiculopathy, unspecified cervical region (principal); M51.16 Intervertebral disc disorders with radiculopathy, lumbar region
CPT/HCPCS: 99212

== ENCOUNTER → 2018-04-19 09:56 | Outpatient (POV) | payer MEDICAID, SELFPAY ==
[2018-04-19 10:11] VITALS: BMI 20.3
--- NOTE | 2018-04-19 10:56 | P.CONS_ITS ---
[facility] Pain Management SOAP Note Subjective:: This patient is a pleasant 52-year-old white female who we have been seeing for neck pain with bilateral arm pain as well as low back pain with bilateral leg pain. She has failed all conservative therapy including injections, physical therapy and oral medications. She is not a surgical candidate. She underwent spinal cord stimulator trial with 70-80% relief in pain symptoms. She had her lead pull on January 252017. She has had a successful neuropsychological evaluation. We have sent her to Dr. Schafer for permanent placement of paddle leads for spinal cord stimulator. She will have one lead placed in the C2-C3 region to cover neck and arm pain and one lead placed in the T7-T8 region to cover low back and leg pain. She is scheduled to get an MRI next week and she will have a follow-up appointment with Dr. Schafer to schedule surgery. Objective:: Alert and oriented x3 no acute distress. Patient does have an antalgic gait. Motor strength of the upper and lower extremities is 5/5. There is no gross sensory deficit. There is reduced range of motion of the cervical spine and lumbar spine. Assessment:: Degenerative disc disease of the cervical spine with cervical radiculopathy symptoms. Degenerative disc disease of the lumbar spine with lumbar radiculopathy symptoms. Plan:: She has had a successful neuropsychological evaluation. We have sent her to Dr. Schafer for permanent placement of paddle leads for spinal cord stimulator. She will have one lead placed in the C2-C3 region to cover neck and arm pain and one lead placed in the T7-T8 region to cover low back and leg pain. She is scheduled to get an MRI next week and she will have a follow-up appointment with Dr. Schafer to schedule surgery.
== END ==
PROVIDERS: PCP Emergency Medicine; Visit Provider Clinical Nurse Specialist Family Health
DX: M50.10 Cervical disc disorder with radiculopathy, unspecified cervical region (principal); M51.16 Intervertebral disc disorders with radiculopathy, lumbar region
CPT/HCPCS: 99212

== ENCOUNTER → 2018-06-28 13:17 | Outpatient (CLI) | payer MEDICAID, SELFPAY ==
[2018-06-28 13:30] LABS: Basophils # 0.1 K/mm3 (0-0.2); Basophils % 0.8 % (0.1-2.0); Eosinophils # 0.2 K/mm3 (0.0-0.4); Eosinophils % 2.2 % (0.1-12.0); Hematocrit 46.2 % (37.0-47.0); Hemoglobin 15.4 g/dL (12.2-16.2); Lymphocytes # 2.1 K/mm3 (0.7-4.5); Lymphocytes % 26.8 % (10-50); Mean Corpuscular HGB Conc 33.3 g/dL (31.8-35.4); Mean Corpuscular Hemoglobin 31.2 pg (27.0-31.2); Mean Corpuscular Volume 93.8 fl (81-99); Mean Platelet Volume 7.7 fl (7.4-10.4); Monocytes # 0.4 K/mm3 (0.1-1.0); Monocytes % 4.8 % (1.7-9.3); Neutrophils # 5.1 K/mm3 (1.8-7.8); Neutrophils % 65.4 % (37.0-80.0); Platelet Count 299 K/mm3 (142-424); Red Blood Count 4.92 M/mm3 (4.20-5.40); Red Cell Distribution Width 13.5 % (11.5-17.5); White Blood Count 7.8 K/mm3 (4.8-10.8)
[2018-06-28 13:50] LABS: Alanine Aminotransferase 76 U/L (12-78); Albumin Level 3.8 gm/dL (3.4-5.0); Alkaline Phosphatase 92 U/L (46-116); Amylase 83 U/L (25-115); Anion Gap 13.7 mEq/L (5-15); Aspartate Amino Transferase 47 U/L (15-37); Bilirubin,Total 0.2 mg/dL (0.2-1.0); Blood Urea Nitrogen 15 mg/dL (7-18); Calcium 8.9 mg/dL (8.5-10.1); Carbon Dioxide 28 mmol/L (21.0-32.0); Chloride 106 mmol/L (98-107); Creatinine,Serum 0.87 mg/dL (0.55-1.02); Estimated Glomerular Filt Rate 69 ml/min (>60); GFR (African American) 83 ML/MIN (>60); Glucose 91 mg/dL (74-106); Lipase 132 u/L (73-393); Potassium 4.7 mmoL/L (3.5-5.1); Sodium 143 mmol/L (136-145); Total Protein,Serum 7.8 gm/dL (6.4-8.2)
== END ==
PROVIDERS: Visit Provider Emergency Medicine
DX: I10 Essential (primary) hypertension (principal); R10.9 Unspecified abdominal pain
CPT/HCPCS: 80053; 82150; 83690; 85025

== ENCOUNTER → 2018-07-15 07:44 | Outpatient (CLI) | payer MEDICAID, SELFPAY ==
--- NOTE | 2018-07-15 07:46 | US_ITS ---
US gallbladder HISTORY: Upper abdominal pain ITS.REASON: stomach pain ORDERING PHYSICIAN: Steven Macario MD PATIENT AGE: 52 years Comparison: None FINDINGS: PANCREAS: Unremarkable. No obvious mass or abnormal fluid collection. No ductal dilatation LIVER: No focal liver lesions demonstrated. Homogeneous echogenicity. No intrahepatic biliary ductal dilatation evident RIGHT KIDNEY: Unremarkable. Normal size and echogenicity. No hydronephrosis GALLBLADDER: Gallbladder is contracted with a thickened wall. No stones,. Cholecystic fluid, or earlier dilatation is evident. IMPRESSION: Contracted gallbladder with thickened wall. No gallstones apparent
== END ==
PROVIDERS: PCP Emergency Medicine; Visit Provider Emergency Medicine
DX: R10.9 Unspecified abdominal pain (principal)
CPT/HCPCS: 76705

== ENCOUNTER → 2018-08-05 08:40 | Outpatient (CLI) | payer MEDICAID, SELFPAY ==
--- NOTE | 2018-08-05 08:41 | NM_ITS ---
NM hepatobiliary w pharm HISTORY: Upper abdominal pain ITS.REASON: contracted GB with thickened wall ORDERING PHYSICIAN: Steven Macario MD PATIENT AGE: 52 years COMPARISON: None DOSE: 8.64 MCI TC Choletec 1.1 MCG CCK INJ Into RT ANT FINDINGS: Homogeneous activity is present within the hepatic parenchyma. Activity is present in the gallbladder by 15 minutes. Activity is present in the small bowel by 15 minutes. The gallbladder ejection fraction is calculated to be 94% The patient did not report pain or other symptoms during CCK infusion. IMPRESSION: Unremarkable hepatobiliary scan and gallbladder ejection fraction. No evidence of common or cystic duct obstruction with normal gallbladder ejection fraction
== END ==
PROVIDERS: PCP Emergency Medicine; Visit Provider Emergency Medicine
DX: R10.11 Right upper quadrant pain (principal)
CPT/HCPCS: 78227; A9537; J2805

== ENCOUNTER → 2018-10-02 14:29 | Outpatient (CLI) | payer MEDICAID, SELFPAY ==
[2018-10-02 15:01] LABS: Amphetamine/Metha Screen,Urine Negative ng/mL (<1000); Barbiturates Screen,Urine Negative ng/mL (<200); Benzodiazepines Screen,Urine Positive ng/mL (<200); Cannabinoid Screen,Urine Negative ng/mL (<50); Cocaine Screen,Urine Negative ng/mL (<300); Methadone Screen,Urine Negative ng/mL (<300); Opiate Screen,Urine Negative ng/mL (<300); Phencyclidine Screen,Urine Negative ng/mL (<25)
[2018-10-08 07:10] LABS: Alprazolam Negative (Cutoff=100); Benzodiazepines Positive ng/mL (Cutoff=100); Clonazepam Positive (.); Flurazepam Negative (Cutoff=100); Lorazepam Negative (Cutoff=100); Midazolam Negative (Cutoff=100); Temazepam Negative (Cutoff=100); Triazolam Negative (Cutoff=100)
[2018-10-08 08:41] LABS: Clonazepam Confirm 240 ng/mL (Cutoff=100)
== END ==
PROVIDERS: Visit Provider Emergency Medicine
DX: Z79.899 Other long term (current) drug therapy (principal)
CPT/HCPCS: 80305; 80346

== ENCOUNTER → 2018-11-29 14:23 | Outpatient (CLI) | payer MEDICAID, SELFPAY ==
[2018-11-29 14:39] LABS: Amphetamine/Metha Screen,Urine Negative ng/mL (<1000); Barbiturates Screen,Urine Negative ng/mL (<200); Benzodiazepines Screen,Urine Negative ng/mL (<200); Cannabinoid Screen,Urine Negative ng/mL (<50); Cocaine Screen,Urine Negative ng/mL (<300); Methadone Screen,Urine Negative ng/mL (<300); Opiate Screen,Urine Negative ng/mL (<300); Phencyclidine Screen,Urine Negative ng/mL (<25)
== END ==
PROVIDERS: Visit Provider Emergency Medicine
DX: Z79.899 Other long term (current) drug therapy (principal)
CPT/HCPCS: 80305

== ENCOUNTER → 2018-12-27 17:48 | Outpatient (CLI) | payer OTHER, SELFPAY ==
[2018-12-27 18:55] LABS: Amphetamine/Metha Screen,Urine Negative ng/mL (<1000); Barbiturates Screen,Urine Negative ng/mL (<200); Benzodiazepines Screen,Urine Negative ng/mL (<200); Cannabinoid Screen,Urine Positive ng/mL (<50); Cocaine Screen,Urine Negative ng/mL (<300); Methadone Screen,Urine Negative ng/mL (<300); Opiate Screen,Urine Negative ng/mL (<300); Phencyclidine Screen,Urine Negative ng/mL (<25)
== END ==
PROVIDERS: Visit Provider Emergency Medicine
DX: Z79.899 Other long term (current) drug therapy (principal)
CPT/HCPCS: 80305

== ENCOUNTER → 2019-01-29 17:10 | Outpatient (CLI) | payer OTHER, SELFPAY ==
[2019-01-29 19:12] LABS: Amphetamine/Metha Screen,Urine Negative ng/mL (<1000); Barbiturates Screen,Urine Negative ng/mL (<200); Benzodiazepines Screen,Urine Negative ng/mL (<200); Cannabinoid Screen,Urine Positive ng/mL (<50); Cocaine Screen,Urine Negative ng/mL (<300); Methadone Screen,Urine Negative ng/mL (<300); Opiate Screen,Urine Negative ng/mL (<300); Phencyclidine Screen,Urine Negative ng/mL (<25)
== END ==
PROVIDERS: Visit Provider Emergency Medicine
DX: Z79.899 Other long term (current) drug therapy (principal)
CPT/HCPCS: 80305

== ENCOUNTER → 2019-02-19 13:34 | Outpatient (CLI) | payer OTHER, SELFPAY ==
[2019-02-19 14:02] LABS: Amphetamine/Metha Screen,Urine Negative ng/mL (<1000); Barbiturates Screen,Urine Negative ng/mL (<200); Benzodiazepines Screen,Urine Positive ng/mL (<200); Cannabinoid Screen,Urine Positive ng/mL (<50); Cocaine Screen,Urine Negative ng/mL (<300); Methadone Screen,Urine Negative ng/mL (<300); Opiate Screen,Urine Negative ng/mL (<300); Phencyclidine Screen,Urine Negative ng/mL (<25)
[2019-02-27 12:14] LABS: Alprazolam Negative (Cutoff=100); Benzodiazepines Positive ng/mL (Cutoff=100); Clonazepam Positive (.); Flurazepam Negative (Cutoff=100); Lorazepam Negative (Cutoff=100); Midazolam Negative (Cutoff=100); Temazepam Negative (Cutoff=100); Triazolam Negative (Cutoff=100)
[2019-02-27 13:17] LABS: Clonazepam Confirm 151 ng/mL (Cutoff=100)
== END ==
PROVIDERS: Visit Provider Emergency Medicine
DX: Z79.899 Other long term (current) drug therapy (principal)
CPT/HCPCS: 80305; 80346

== ENCOUNTER → 2019-04-01 13:15 | Outpatient (CLI) | payer OTHER, SELFPAY ==
--- NOTE | 2019-04-01 13:22 | XR_ITS ---
PROCEDURE: XR HIP RT 2-3V W/PELVIS CLINICAL INDICATION: right hip pain Right hip pain following injury COMPARISON: No exams were available for comparison FINDINGS: No fracture or dislocation is evident. No significant degenerative change. No lytic or blastic change. Unremarkable soft tissues. There is a small benign-appearing cystic area of the femoral neck and may be due to a cortical defect. There are minimal osteoarthritic changes with some osteosclerosis of the acetabular roof on both sides. Small sclerotic foci overlies the left femoral neck. IMPRESSION: No acute finding. Minimal osteoarthritic change. Probable benign cortical defect right femoral neck Dictated by: Michael Dixon MD 04/01/2019 14:54 Electronically signed by Michael Dixon MD in [place] 04/01/2019 14:54
--- NOTE | 2019-04-01 13:22 | XR_ITS ---
PROCEDURE: XR HIP LT 2-3V W/PELVIS CLINICAL INDICATION: left hip pain Left hip pain, recent falls COMPARISON: No exams were available for comparison FINDINGS: No fracture or dislocation is evident. No significant degenerative change. No lytic or blastic change. Unremarkable soft tissues. There are small sclerotic foci in the left proximal femur and may be due to bone islands IMPRESSION: No acute findings. Dictated by: Michael Dixon MD 04/01/2019 15:07 Electronically signed by Michael Dixon MD in [place] 04/01/2019 15:07
== END ==
PROVIDERS: PCP Emergency Medicine; Visit Provider Orthopaedic Surgery
DX: M25.552 Pain in left hip (principal); M25.551 Pain in right hip
CPT/HCPCS: 73502

== ENCOUNTER → 2019-04-21 13:41 | Outpatient (CLI) | payer OTHER, SELFPAY ==
[2019-04-21 19:09] LABS: Amphetamine/Metha Screen,Urine Negative ng/mL (<1000); Barbiturates Screen,Urine Negative ng/mL (<200); Benzodiazepines Screen,Urine Positive ng/mL (<200); Cannabinoid Screen,Urine Positive ng/mL (<50); Cocaine Screen,Urine Negative ng/mL (<300); Methadone Screen,Urine Negative ng/mL (<300); Opiate Screen,Urine Negative ng/mL (<300); Phencyclidine Screen,Urine Negative ng/mL (<25)
[2019-04-27 08:09] LABS: Alprazolam Negative (Cutoff=100); Benzodiazepines Positive ng/mL (Cutoff=100); Clonazepam Positive (.); Flurazepam Negative (Cutoff=100); Lorazepam Negative (Cutoff=100); Midazolam Negative (Cutoff=100); Temazepam Negative (Cutoff=100); Triazolam Negative (Cutoff=100)
[2019-04-27 17:44] LABS: Clonazepam Confirm 952 ng/mL (Cutoff=100)
== END ==
PROVIDERS: Visit Provider Emergency Medicine
DX: Z79.899 Other long term (current) drug therapy (principal)
CPT/HCPCS: 80305; 80346

== ENCOUNTER → 2019-08-19 16:35 | Outpatient (CLI) | payer OTHER, SELFPAY ==
[2019-08-22 15:41] LABS: Gabapentin,Urine 407.5 ug/mL (.)
== END ==
PROVIDERS: Visit Provider Emergency Medicine
DX: M47.812 Spondylosis without myelopathy or radiculopathy, cervical region (principal)
CPT/HCPCS: 80307

== ENCOUNTER 2020-04-19 13:00 | Outpatient (RCR) | payer OTHER, SELFPAY ==
--- NOTE | 2020-03-22 15:31 | HMH.SLAPHASI ---
Speech & Language Evaluation Speech/Language Aphasia Evaluation Start: 03/22/20 15:12 Freq: once Status: Complete Protocol: Document 03/22/20 15:14 EULALIO (Rec: 03/22/20 15:31 EULALIO [id number]) Aphasia Assessment/Goals/Plan Assessment Does Patient Qualify for Service Yes Qualify/Failure Comment Scores indicate a moderate to severe reasinging and higher level cognitive impairment Plan Pt will be seen # times/week 2 for # weeks 8 Anticipate reaching STG in # weeks 4 Anticipate reaching LTG in # weeks 8 Pt/Guardian verbally ack understanding Yes of dx/prognosis/goals G -code Required No STG-Attending/Orientation/Memory Delayed Recall 90 Attention/Concentration 90 STG-Comparative/Linguistic Skills Categorization Ability 90 Define Similarities/Differences 90 Sequence Events in Correct Order 90 STG-Divergent Thinking Deductive Reasoning 90 Inductive Reasoning 90 Open-Ended Problem Solving 90 Pre Press Manager Goals Increase cognitive skills to communicate Yes w/family & friends Aphasia Evaluations Communication Speech Intelligibility Pragmatics: WNL Motor Speech: WNL Motor Speech: WNL Voice: WNL Auditory Comprehension Yes: Word Level Sentences Following Directions Conversation No: Paragraph AC Comment Paragraphs impaired Reading Comprehension Yes: Letter Naming Word Naming Sentences No: Paragraphs RC Comment Paragraphs impaired Verbal Expressive Language Yes: Automatic Speech Completing Sentences Repetition Abilities Word Level Naming Naming Actions/Objects Sentence Level Defining Words Written Language Yes: Signature Copy Shapes Copy Words Check Writing Sentence Writing Attending/Orientation/Memory Yes: Orientation Memory No: Delayed Recall W/ Interference Attention/Concentration
== END 2020-04-19 13:05 | disposition home or self-care (01) ==
LOC: ST 13:00
PROVIDERS: PCP Emergency Medicine; Visit Provider Emergency Medicine
DX: I63.9 Cerebral infarction, unspecified (principal)
CPT/HCPCS: 92507; 92523

== ENCOUNTER 2020-04-23 10:00 | Outpatient (RCR) | payer OTHER, SELFPAY | END 2020-04-23 10:05 | disposition home or self-care (01) | LOC: OT 10:00 | PROVIDERS: PCP Emergency Medicine; Visit Provider Emergency Medicine | DX: I63.9 Cerebral infarction, unspecified (principal) | CPT/HCPCS: 97110; 97164; 97165; 97530 ==

== ENCOUNTER 2020-04-23 11:00 | Outpatient (RCR) | payer OTHER, SELFPAY ==
--- NOTE | 2020-03-22 13:33 | HMH.PTOPEV ---
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 Pt reports L sided effected, with L foot drop, L LE 'nerve pain' from knee to toes, and generalized weakness in LLE. Pt reports improved L LE function over the last ~3-4 weeks, and 'I was able to make it to the store to do a little shopping yesterday'. Chief Complaint Pain,Paresthesia,Weakness Symptom Type Ache,Sharp,Dull,Stabbing, Numbness,Tingling,Shooting Symptoms Relieved By Rest/Positioning,Heat Symptoms Aggravated By Standing,Physical Activity, Walking Prior Functional Limitations Standing,Walking,Balance Current Functional Limitations Housework,Standing,Walking, Stairs,Balance Symptom Description Constant but Variable Level of pain today (0-10) 3 Pain scale - at its best (0-10) 2 Pain scale - at its worst (0-10) 10 Hip/Knee Eval Gait Observation General Gait Pattern Observation Decrease Weight Bear (L), Decrease Stride Lngth (L) Assistive Device Assistive Devices Rolling / Wheeled Walker MMT left Hip Flexion Strength Grade 3+ Fair+ Hip Abduction Strength Grade 3+ Fair+ Hip Adduction Strength Grade 3+ Fair+ Hip Extension Strength Grade 3+ Fair+ Hip External Rotation Strength Grade 3+ Fair+ Hip Internal Rotation Strength Grade 3+ Fair+ Knee Extension Strength Grade 3+ Fair+ Knee Flexion Strength Grade 3+ Fair+ right Hip Flexion Strength Grade 4 Good Hip Abduction Strength Grade 4- Good- Hip Adduction Strength Grade 4 Good Hip Extension Strength Grade 4- Good- Hip External Rotation Strength Grade 4 Good Hip Internal Rotation Strength Grade 4 Good Knee Extension Strength Grade 5 Normal Knee Flexion Strength Grade 5 Normal Ankle/Foot Eval Palpation Tenderness left Ankle/Foot Palpation Overall Comment 3-4/4 hyper- in foot (lateral aspect) MMT Ankle Dorsiflexion Strength Grade 2 Poor Ankle Plantarflexion Strength Grade 3- Fair- Foot Eversion Strength Grade 2+ Poor+ Foot Inversion Strength Grade 2+ Poor+ Tinetti
== END 2020-04-23 11:05 | disposition home or self-care (01) ==
LOC: PT 11:00
PROVIDERS: PCP Emergency Medicine; Visit Provider Emergency Medicine
DX: I63.9 Cerebral infarction, unspecified (principal)
CPT/HCPCS: 97110; 97112; 97116; 97163

== ENCOUNTER → 2020-08-18 21:58 | Outpatient (CLI) | payer OTHER, SELFPAY ==
[2020-08-18 22:50] LABS: Amphetamine/Metha Screen,Urine Negative ng/ml (<1000)
[2020-08-18 22:51] LABS: Barbiturates Screen,Urine Negative ng/ml (<200); Benzodiazepines Screen,Urine Negative ng/ml (<200)
[2020-08-18 22:52] LABS: Cannabinoid Screen,Urine Negative ng/ml (<50); Cocaine Screen,Urine Negative ng/ml (<300)
[2020-08-18 22:53] LABS: Methadone Screen,Urine Negative ng/ml (<300)
[2020-08-18 22:54] LABS: Opiate Screen,Urine Positive ng/ml (<300); Phencyclidine Screen,Urine Negative ng/ml (<25)
== END ==
PROVIDERS: Visit Provider Emergency Medicine
DX: Z79.899 Other long term (current) drug therapy (principal)
CPT/HCPCS: 80305

== ENCOUNTER 2020-12-10 10:00 | Outpatient (RCR) | payer OTHER, SELFPAY ==
--- NOTE | 2020-10-12 16:07 | HMH.PTOPEV ---
PT Outpatient Evaluation Rehab PT Outpatient Evaluation Start: 10/12/20 15:54 Freq: Status: Active Protocol: Document 10/12/20 15:56 JOAOONEIL (Rec: 10/12/20 16:07 MADDIE [id number]) Electronically Signed By Abdelrahman Estrada, PT 10/12/20 15:56 Outpatient Therapy Subjective History Subjective History Patient is a 54 year old female presenting to outpatient PT with reports of LLE pain and generalized weakness. Symptom onset 2020 after a CVA affecting left side. No recent imaging to report. Comorbidities include hx of B CTR and HTN. Chief Complaint Pain,Paresthesia,Weakness Symptom Type Sharp,Numbness,Tingling Symptoms Relieved By Rest/Positioning,Prescription Meds,Elevation Symptoms Aggravated By Standing,Physical Activity, Walking Prior Functional Limitations Standing,Walking Current Functional Limitations Housework,Standing,Walking, Stairs,Balance Symptom Description Constant but Variable Level of pain today (0-10) 5 Pain scale - at its best (0-10) 4 Pain scale - at its worst (0-10) 8 Hip/Knee Eval Gait Observation General Gait Pattern Observation Antalgic Gait,Wide Based Gait, Decrease Weight Bear (L) Assistive Device Assistive Devices Straight Cane Palpation Tenderness left Knee Palpation Overall Comment L trochateric bursa 3/4 Hip Palpation Findings Tenderness MMT right Hip Flexion Strength Grade 4 Good Hip Abduction Strength Grade 4 Good Hip Adduction Strength Grade 4 Good Hip Extension Strength Grade 4 Good Hip External Rotation Strength Grade 4 Good Hip Internal Rotation Strength Grade 4 Good Knee Extension Strength Grade 4 Good Knee Flexion Strength Grade 4 Good left Hip Flexion Strength Grade 3 Fair Hip Abduction Strength Grade 3 Fair Hip Adduction Strength Grade 3 Fair Hip Extension Strength Grade 3 Fair Hip External Rotation Strength Grade 3 Fair Hip Internal Rotation Strength Grade 3 Fair Knee Extension Strength Grade 3 Fair Knee Flexion Strength Grade 3 Fair ROM Hip ROM Reason Not Measured Within Functional Limits Knee ROM Reason Not Measured Within Functional Limits Special Tests Hip Piriformis Test Negative Left Hip 90-90 Straight Leg Raise Test Negative Left Sciatic Nerve Tension Test Negative Left Hip Trendelenburg Test Positive Right Knee Anterior Mira Test Negative Left
== END 2020-12-10 10:05 | disposition home or self-care (01) ==
LOC: PT 10:00
PROVIDERS: PCP Emergency Medicine; Visit Provider Emergency Medicine
DX: M79.605 Pain in left leg (principal)
CPT/HCPCS: 97010; 97014; 97110; 97112; 97116; 97163; 97164; G0283

== ENCOUNTER → 2021-01-04 13:44 | Outpatient (CLI) | payer OTHER, SELFPAY ==
[2021-01-04 15:18] LABS: Amphetamine/Metha Screen,Urine Negative ng/ml (<1000)
[2021-01-04 15:19] LABS: Barbiturates Screen,Urine Negative ng/ml (<200)
[2021-01-04 15:20] LABS: Benzodiazepines Screen,Urine Negative ng/ml (<200); Cannabinoid Screen,Urine Negative ng/ml (<50)
[2021-01-04 15:21] LABS: Cocaine Screen,Urine Positive ng/ml (<300)
[2021-01-04 15:22] LABS: Methadone Screen,Urine Negative ng/ml (<300); Opiate Screen,Urine Negative ng/ml (<300)
[2021-01-04 15:23] LABS: Phencyclidine Screen,Urine Negative ng/ml (<25)
== END ==
PROVIDERS: Visit Provider Emergency Medicine
DX: Z79.899 Other long term (current) drug therapy (principal)
CPT/HCPCS: 80305

== ENCOUNTER → 2021-02-21 14:46 | Outpatient (CLI) | payer OTHER, SELFPAY ==
[2021-02-21 19:31] LABS: Amphetamine/Metha Screen,Urine Negative ng/ml (<1000)
[2021-02-21 19:32] LABS: Barbiturates Screen,Urine Negative ng/ml (<200); Benzodiazepines Screen,Urine Negative ng/ml (<200)
[2021-02-21 19:33] LABS: Cannabinoid Screen,Urine Negative ng/ml (<50); Cocaine Screen,Urine Positive ng/ml (<300)
[2021-02-21 19:34] LABS: Methadone Screen,Urine Negative ng/ml (<300)
[2021-02-21 19:35] LABS: Opiate Screen,Urine Negative ng/ml (<300)
[2021-02-21 19:36] LABS: Phencyclidine Screen,Urine Negative ng/ml (<25)
== END ==
PROVIDERS: Visit Provider Emergency Medicine
DX: Z79.899 Other long term (current) drug therapy (principal)
CPT/HCPCS: 80305

== ENCOUNTER → 2021-05-02 16:00 | Outpatient (CLI) | payer OTHER, SELFPAY ==
[2021-05-02 20:09] LABS: Amphetamine/Metha Screen,Urine Negative ng/ml (<1000)
[2021-05-02 20:10] LABS: Barbiturates Screen,Urine Negative ng/ml (<200); Benzodiazepines Screen,Urine Negative ng/ml (<200)
[2021-05-02 20:11] LABS: Cannabinoid Screen,Urine Negative ng/ml (<50); Cocaine Screen,Urine Negative ng/ml (<300)
[2021-05-02 20:12] LABS: Methadone Screen,Urine Negative ng/ml (<300)
[2021-05-02 20:13] LABS: Opiate Screen,Urine Negative ng/ml (<300); Phencyclidine Screen,Urine Negative ng/ml (<25)
== END ==
PROVIDERS: Visit Provider Emergency Medicine
DX: Z79.899 Other long term (current) drug therapy (principal)
CPT/HCPCS: 80305

== ENCOUNTER → 2021-05-30 16:31 | Outpatient (CLI) | payer OTHER, SELFPAY ==
[2021-05-30 18:58] LABS: Amphetamine/Metha Screen,Urine Negative ng/ml (<1000)
[2021-05-30 18:59] LABS: Benzodiazepines Screen,Urine Negative ng/ml (<200); Cannabinoid Screen,Urine Negative ng/ml (<50)
[2021-05-30 20:48] LABS: Barbiturates Screen,Urine Negative ng/ml (<200)
[2021-05-30 20:49] LABS: Cocaine Screen,Urine Negative ng/ml (<300)
[2021-05-30 20:50] LABS: Methadone Screen,Urine Negative ng/ml (<300); Opiate Screen,Urine Negative ng/ml (<300)
[2021-05-30 20:51] LABS: Phencyclidine Screen,Urine Negative ng/ml (<25)
== END ==
PROVIDERS: Visit Provider Emergency Medicine
DX: M79.7 Fibromyalgia (principal)
CPT/HCPCS: 80305

== ENCOUNTER → 2021-06-17 13:06 | Outpatient (CLI) | payer OTHER, SELFPAY ==
--- NOTE | 2021-06-17 13:06 | MR_ITS ---
FINAL REPORT CLINICAL HISTORY: Back pain with radicular component. pt had stroje 1 year ago. left sided deficient. left leg pain FINDINGS: Multiplanar MR imaging of the lumbar spine was performed without contrast. On the sagittal T2-weighted images, disc degeneration is seen at multiple levels. There are endplate changes greatest at L4-L5. The vertebral alignment is normal. There is no evidence of fracture. The conus has an unremarkable appearance. There is no significant central canal stenosis. L1-2: An annular bulge is present. L2-3: There is an annular bulge with a left foraminal disc protrusion and annular tear. There is moderate left neural foraminal narrowing. L3-4: There is an annular bulge with a left foraminal disc protrusion. There is mild left neural foraminal narrowing. L4-5: There is an annular bulge, facet arthropathy and vertebral osteophytes. There is a left foraminal disc protrusion with annular tear. There is mild right and moderate left neural foraminal narrowing. L5-S1: There is no significant central canal stenosis or neural foraminal narrowing. IMPRESSION: Disc protrusions at L2-L3, L3-L4, and L4-L5 with multilevel neural foraminal narrowing. No significant central canal stenosis. Reviewed, Interpreted and Dictated by Mick Ortiz III, MD Transcribed by Geovany Gan Authenticated by Mick Ortiz III, MD on 06/17/2021 03:33:36 PM [facility]
--- NOTE | 2021-06-17 13:51 | XR_ITS ---
FINAL REPORT CLINICAL HISTORY: Chronic low back pain. h/o stroke 2 yrs ago, c/o low back pain extending down lt leg lower FINDINGS: LUMBAR SPINE Three views of the lumbar spine were obtained. There is no acute fracture or subluxation. Mild degenerative change with osteophytes are present. IMPRESSION: Mild degenerative changes. Reviewed, Interpreted and Dictated by Mick Ortiz III, MD Transcribed by Bruna Irwin Authenticated by Mick Ortiz III, MD on 06/17/2021 02:55:44 PM [facility]
== END ==
PROVIDERS: PCP Emergency Medicine; Visit Provider Specialist
DX: M54.16 Radiculopathy, lumbar region (principal); G89.29 Other chronic pain
CPT/HCPCS: 72100; 72148; 76376

== ENCOUNTER → 2021-08-01 10:57 | Outpatient (POV) | payer OTHER, SELFPAY ==
[2021-08-01 12:24] VITALS: BP 145/86; PULSE 72; RESP 18; TEMP 36.4; O2SAT 98; BMI 20.7
--- NOTE | 2021-08-01 15:11 | HMH.PMCON ---
Assessment and Plan (1) Facet arthropathy Status: Acute Category: Medical Code(s): M47.819 - Spondylosis without myelopathy or radiculopathy, site unspecified (2) Lumbar spondylosis Status: Acute Category: Medical Code(s): M47.816 - Spondylosis without myelopathy or radiculopathy, lumbar region (3) Lumbar disc disease with radiculopathy Status: Chronic Category: Medical Code(s): M51.16 - Intervertebral disc disorders with radiculopathy, lumbar region - Assessment and plan all Dx Assessment and Plan for all problems:: Patient has been having worsening low back pain that radiates to bilateral lower extremities. Patient has positive Kemps test. Patient has tenderness around the facet joints. We will schedule the patient for diagnostic facet/medial branch block injections bilaterally at L2-L3 and L4-L5. Risks and benefits of the procedure have been explained to the patient. Patient would like to proceed with the procedure. Patient is not on any blood thinners. Additionally, when we were seeing this patient in 2018, we had done a spinal cord stimulator trial for her cervical spine. She had a successful trial but we never did move forward for permanent placement. At that time, we were thinking of using paddle leads for the cervical spine. Currently, patient is not complaining of any acute neck pain. Patient has been instructed to contact the clinic with any concerns before the next appointment. Dr. Lu has reviewed this note and agrees with this plan of care. This note was dictated using voice recognition software and make contain errors or omissions. HPI - Data of Consult Patient: new to practice Consult date: 08/01/21 Requesting Physician: PIERO [place] - Consult Narrative Reason for consult: Low back pain History of present illness: Ms. Lindsay is a 55 year old female presents today as a new patient. Patient is referred by Dr. Bonilla. Thank you for the referral. Patient presents today with worsening low back pain that radiates to bilateral lower extremities. Denies any recent falls or traumas. 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 She was admitted to the hospital because of this. She finished her rehab, but she continues to have gait issues. She has been having worsening low back pain as well that sometimes radiates to bilateral lower extremities. Her latest MRI is significant for lumbosacral spondylosis and multilevel neuroforaminal narrowing. Rates her pain as 8/10. She takes Gabapentin 600mg daily for neuropathic pain which seems to help. We were also seeing this patient in 2018 where we have tried trigger point injections that provided minimal relief. We have not seen her since then. CC: PIERO Washington [facility] History I have reviewed the patient's past medical history: Yes Medical History: Reports:: Anxiety, Chronic Obstructive Pulmonary Disease (COPD), Cerebrovascular Accident, Depression, Gastroesophageal Reflux Disease(GERD), Hepatitis, Hyperlipidemia, Hypertension, Internal Pacemaker, Kidney Stones Denies:: Cancer, Diabetes Mellitus Type 1, Diabetes Mellitus Type 2, MRSA, Seizures *Have you ever received a pneumonia vaccine?: No *Have you received a flu vaccine this season?: No Other Medical History: Reports: Arthritis, Blood Transfusion Reaction, Fibromyalgia, Liver Disease, Sinus Problems, Other Laterality Cases: Bilateral: Carpal Tunnel Release, Tonsillectomy Other Surgeries: Yes: Appendectomy, Hysterectomy-Total, Pacemaker, Tubal Ligation, Other Amputation: No Fractures: No - *Social History Smoking Status: Current every day smoker Tobacco Type: cigarettes, e-cigarettes # Packs/Day (cigarettes): 1 #Yrs smoked (if former smoker): 30 Alcohol Intake: never Alcohol Intake Frequency:: other Substance Use Type: marijuana *Occupational Status:: unemployed Housing: house Household Members: none *Travel in the last 8 weeks: None - Psychiatric Histor
== END ==
PROVIDERS: Visit Provider Student in an Organized Health Care Education/Training Program
DX: M47.896 Other spondylosis, lumbar region (principal); M51.16 Intervertebral disc disorders with radiculopathy, lumbar region
CPT/HCPCS: 99202; G0463

== ENCOUNTER 2021-08-05 08:39 | Day surgery (SDC) | payer OTHER, SELFPAY ==
[2021-08-05 08:55] VITALS: BP 125/72; PULSE 59; RESP 20; TEMP 36.6; O2SAT 96; BMI 20.7
[2021-08-05 09:36] VITALS: BP 111/77; PULSE 57; RESP 18; O2SAT 96
[2021-08-05 09:37] VITALS: BP 108/72; PULSE 56; RESP 18; O2SAT 96
--- NOTE | 2021-08-05 09:41 | HMH.PMPROC ---
- Procedure Date: 08/05/21 Time: 09:41 Anesthesiologist:: Edgardo Guerra CRNA Complications:: None Pre-procedure Diagnosis:: Lumbar facet arthropathy multilevel Post-procedure Diagnosis:: Same Indications for Procedure:: This patient is a pleasant 55-year-old female that we have treated in our pain clinic for several years for different issues in the lumbar spine. Today she presents to our injection clinic for bilateral L2-3, L4-5 facet joint injections/medial branch block. Patient complaining of intense axial back pain with twisting, bending, standing for any length of time. She rates the pain 7/10. Procedure Details:: Details of the procedure were explained to the patient. The patient was taken to the procedure room placed in the prone position. The area over the lumbar spine was cleaned using chlorhexidine as a cleansing solution. Using fluoroscopy guidance a 22-gauge 3 inch spinal needle was used to access the bilateral facet joints at L2-3 and L4-5. 1 cc of 1% lidocaine and 10 mg of Depo-Medrol was injected each area. Patient tolerated procedure without difficulty. There were no complications. Plan and Disposition:: She was discharged without incident.
[2021-08-05 09:50] VITALS: BP 128/80; PULSE 60; RESP 20; O2SAT 97
== END 2021-08-05 09:51 | disposition home or self-care (01) ==
LOC: SC.PAINP 08:40
PROVIDERS: PCP Emergency Medicine; Visit Provider Nurse Anesthetist, Certified Registered
DX: M47.896 Other spondylosis, lumbar region; J44.9 Chronic obstructive pulmonary disease, unspecified; F41.9 Anxiety disorder, unspecified; F32.A Depression, unspecified; K21.9 Gastro-esophageal reflux disease without esophagitis; E78.5 Hyperlipidemia, unspecified; I10 Essential (primary) hypertension; Z95.0 Presence of cardiac pacemaker; K75.9 Inflammatory liver disease, unspecified; M19.90 Unspecified osteoarthritis, unspecified site; Z86.73 Personal history of transient ischemic attack (TIA), and cerebral infarction without residual deficits; F12.90 Cannabis use, unspecified, uncomplicated
CPT/HCPCS: 64493; 64494; J1040

== ENCOUNTER → 2021-08-25 09:57 | Outpatient (POV) | payer OTHER, SELFPAY ==
--- NOTE | 2021-08-25 10:09 | HMH.PAINSOAP ---
[facility] Pain Management SOAP Note Subjective:: Patient is a pleasant 55-year-old female who presents today for follow-up after a diagnostic medial branch block at L2-L3 and L4-L5 bilaterally on August 05, 2021. Patient is currently being treated for degenerative disc disease of lumbar spine, lumbar facet arthropathy, lumbar spondylosis, lumbar radiculopathy. 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 After her procedure, patient had significant relief of 80 to 90% that lasted for about 1 week. Denies any issues after his procedure. She states that during that week, she was able to increase her activity. Her pain is back to baseline today and rates her pain as 8 out of 10. She is prescribed gabapentin 600 mg 3 times a day that is prescribed by her PCP. She is also on suboxone therapy here in [place]. She is stable in these medications. [facility] [phone] with an active morphine equivalent of 0. Review of Systems: General: No recent weight changes, no fever, no sleep disturbances Respiratory: No cough, no shortness of air, no recurring pulmonary infections Cardiovascular/peripheral vascular: No chest pain, no palpitations, no edema, no shortness of breath Gastrointestinal: No new onset incontinence, normal bowel movements reported Genitourinary: No new onset incontinence Musculoskeletal: Lumbar Psychiatric: [Normal mood/affect] Neurological: [Denies weakness in extremities], [denies balance issues] Objective:: Physical Exam: General: Alert and oriented x3, no acute distress, pleasant and cooperative Lungs: Respirations even and unlabored, symmetrical chest expansion Eyes: PERRL Musculoskeletal: Flexion and extension of lumbar [spine] somewhat guarded secondary to pain, [antalgic gait noted] Neurological: Speech clear, no gross sensory deficit Assessment:: Degenerative disease of lumbar spine with lumbar radiculopathy symptoms, lumbar facet arthropathy, lumbar spondylosis Plan:: Patient had significant relief after her last medial branch block injection. We will schedule the patient for a repeat diagnostic medial branch block/facet injections at L2-L3 and L4-L5 bilaterally. Risks and benefits of the procedure have been explained to the patient. Patient would like to proceed with the procedure. Patient is not on any blood thinners. If the patient gets significant relief from this second medial branch block, we will schedule the patient for lumbar RFA. In the past, we were seeing this patient in 2018 and she had a successful spinal cord stimulator trial for her cervical spine. At the moment, patient is not complaining of neck pain. She is more worried about her low back pain at this time. We can always revisit the SCS therapy later. Patient has been instructed to contact the clinic with any concerns before the next appointment. Dr. Lu has reviewed this note and agrees with this plan of care. This note was dictated using voice recognition software and make contain errors or omissions. [facility] History Medical History: Reports:: Anxiety, Chronic Obstructive Pulmonary Disease (COPD), Cerebrovascular Accident, Depression, Gastroesophageal Reflux Disease(GERD), Hepatitis, Hyperlipidemia, Hypertension, Internal Pacemaker, Kidney Stones Denies:: Cancer, Diabetes Mellitus Type 1, Diabetes Mellitus Type 2, MRSA, Seizures *Have you ever received a pneumonia vaccine?: No *Have you received a flu vaccine this season?: No Other Medical History: Reports: Arthritis, Blood Transfusion Reaction, Fibromyalgia, Liver Disease, Sinus Problems, Other Laterality Cases: Bilateral: Carpal Tunnel Release, Tonsillectomy Other Surgeries: Yes: Appendectomy, Hysterectomy-Total, Pacemaker, Tubal Ligation, Other Amputation: No Fractures: No - *Social History Smoking Status: Current every day smoker Tobacco Type: cigarettes, e-cigarettes # Packs/Day (cigarettes): 1 #Yrs smoked (if former smoker): 30 Alcohol Intake:
[2021-08-25 10:19] VITALS: BP 144/100; PULSE 74; RESP 18; TEMP 36.8; O2SAT 97; BMI 20.7
== END ==
PROVIDERS: Visit Provider Student in an Organized Health Care Education/Training Program
DX: M51.16 Intervertebral disc disorders with radiculopathy, lumbar region (principal); M47.26 Other spondylosis with radiculopathy, lumbar region; I67.83 Posterior reversible encephalopathy syndrome
CPT/HCPCS: 99212; G0463

== ENCOUNTER 2021-08-30 13:20 | Day surgery (SDC) | payer OTHER, SELFPAY ==
[2021-08-30 13:37] VITALS: BP 136/78; PULSE 63; RESP 17; TEMP 36.7; O2SAT 99; BMI 20.7
[2021-08-30 13:45] VITALS: BP 136/83; PULSE 65; RESP 20
--- NOTE | 2021-08-30 13:45 | P.PCN_ITS ---
- Procedure Date: 08/30/21 Time: 13:45 Anesthesiologist:: Edgardo Guerra CRNA Complications:: None Pre-procedure Diagnosis:: Degenerative disc disease lumbar spine. Lumbar facet arthropathy. Lumbar spondylosis. L2-3, L4-5. Bilaterally Post-procedure Diagnosis:: Same Indications for Procedure:: Patient is a pleasant 55-year-old female who presents today for diagnostic/therapeutic medial branch block at L2-3, L3-4. This was around 2 of these injections. Patient had her first round and reports 70 to 80% improvement lasting 1 week in terms of her low back pain. However the pain has returned and she describes it as dull, aching. Walking for any length of time increases the pain. Standing for any length of time increases the pain. She rates her pain 7/10 today. Procedure Details:: Informed consent was obtained and the risk and benefits of the procedure was explained to the patient. Patient was taken to the procedure room where noninvasive monitors were placed, including noninvasive blood pressure cuff as well as pulse oximeter. The area over the lumbar spine was cleansed using chlorhexidine as a cleansing solution. I anesthetized the skin and subcutaneous tissues with 1% Lidocaine. I placed 22-gauge spinal needles into the facet joint/ medial branches of L2-3, L4-5 bilaterally. Needle placement was confirmed with fluoroscopy. After confirmation of needle placement, each site was injected with 1 mL of 1% lidocaine and 0.25 % Marcaine and 10 mg of Depo-Medrol. A total of 80 mg of depo medrol was used for bilateral medial branch blocks of L2-3, L4- 5] bilaterally. Patient tolerated the procedure without difficulty. There were no complications. Plan and Disposition:: Patient was discharged without incident.
[2021-08-30 13:59] VITALS: BP 151/76; PULSE 61; RESP 20; O2SAT 99
== END 2021-08-30 14:00 | disposition home or self-care (01) ==
LOC: SC.PAINP 13:21
PROVIDERS: PCP Emergency Medicine; Visit Provider Nurse Anesthetist, Certified Registered
DX: M51.36 Other intervertebral disc degeneration, lumbar region (principal); M47.816 Spondylosis without myelopathy or radiculopathy, lumbar region; J44.9 Chronic obstructive pulmonary disease, unspecified; F41.9 Anxiety disorder, unspecified; F32.A Depression, unspecified; K21.9 Gastro-esophageal reflux disease without esophagitis; E78.5 Hyperlipidemia, unspecified; Z72.0 Tobacco use
CPT/HCPCS: 64493; 64494; 76000; J1040

== ENCOUNTER → 2021-09-15 12:41 | Outpatient (POV) | payer OTHER, SELFPAY ==
--- NOTE | 2021-09-15 13:34 | HMH.PAINSOAP ---
[facility] Pain Management SOAP Note Subjective:: Patient is a pleasant 55-year-old female who presents today for follow-up of a medial branch block at L2-3, L3-4. Patient is currently being treated for degenerative disc disease of lumbar spine, lumbar facet arthropathy, lumbar spondylosis, lumbar radiculopathy. 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 Patient states she has had minimal improvements with the last injection rating it at 50%. Patient denies any complications from injection. She states the pain is in her left calf that runs to her toes. It is a constant drawing sensation that is worse with activity. Patient is prescribed gabapentin 3 times a day by her primary care provider. She is also on Suboxone therapy here in [place]. She is stable on these medications. Her Nigel is [phone]. It has been reviewed and is appropriate. Review of Systems: General: No recent weight changes, no fever, no sleep disturbances Respiratory: No cough, no shortness of air, no recurring pulmonary infections Cardiovascular/peripheral vascular: No chest pain, no palpitations, no edema, no shortness of breath Gastrointestinal: No new onset incontinence, normal bowel movements reported Genitourinary: No new onset incontinence Musculoskeletal: Low back pain and left lower extremity pain Psychiatric: [Normal mood/affect] Neurological: [Denies weakness in extremities], [denies balance issues] Objective:: Physical Exam: General: Alert and oriented x3, no acute distress, pleasant and cooperative Lungs: Respirations even and unlabored, symmetrical chest expansion Eyes: PERRL Musculoskeletal: Flexion and extension of lumbar [spine] somewhat guarded secondary to pain, [antalgic gait noted] Neurological: Speech clear, no gross sensory deficit Assessment:: Degenerative disc disease of lumbar spine, lumbar facet arthropathy, lumbar spondylosis, lumbar radiculopathy Plan:: Patient states that she had about 50% relief from medial branch block at L2-3, L3-4 that lasted about a week. SHe states this is her second medial branch block at this level. Patient states the first medial branch block provided 80 to 90% relief. She has tried and failed conservative therapies such as oral medications, physical therapy and home exercises for 4 to 6 weeks. She is interested in moving forward to have a lumbar ablation. Risk and benefits were discussed with the patient. She would like to proceed forward with procedure. Patient is not currently taking any blood thinners. I will schedule her today for a lumbar RFA. Patient has been instructed to contact the clinic with any concerns before the next appointment. Dr. Lu has reviewed this note and agrees with this plan of care. This note was dictated using voice recognition software and make contain errors or omissions. [facility] History I have reviewed the patient's past medical history: Yes Medical History: Reports:: Anxiety, Chronic Obstructive Pulmonary Disease (COPD), Cerebrovascular Accident, Depression, Gastroesophageal Reflux Disease(GERD), Hepatitis, Hyperlipidemia, Hypertension, Internal Pacemaker, Kidney Stones Denies:: Cancer, Diabetes Mellitus Type 1, Diabetes Mellitus Type 2, MRSA, Seizures *Have you ever received a pneumonia vaccine?: No *Have you received a flu vaccine this season?: No Other Medical History: Reports: Arthritis, Blood Transfusion Reaction, Fibromyalgia, Liver Disease, Sinus Problems, Other Laterality Cases: Bilateral: Carpal Tunnel Release, Tonsillectomy Other Surgeries: Yes: Appendectomy, Hysterectomy-Total, Pacemaker, Tubal Ligation, Other Amputation: No Fractures: No - *Social History Smoking Status: Current every day smoker Tobacco Type: cigarettes, e-cigarettes # Packs/Day (cigarettes): 1 #Yrs smoked (if former smoker): 30 Alcohol Intake: never Alcohol Intake Frequency:: other Substance Use Type: marijuana *Occupational Status:: other Housing: hous
[2021-09-15 15:11] VITALS: BP 149/93; PULSE 100; RESP 18; TEMP 36.6; O2SAT 97; BMI 20.7
== END ==
PROVIDERS: Visit Provider Student in an Organized Health Care Education/Training Program
DX: M51.16 Intervertebral disc disorders with radiculopathy, lumbar region (principal); M54.06 Panniculitis affecting regions of neck and back, lumbar region; M47.26 Other spondylosis with radiculopathy, lumbar region
CPT/HCPCS: 99212; G0463

== ENCOUNTER 2021-09-27 09:30 | Day surgery (SDC) | payer OTHER, SELFPAY ==
[2021-09-27 09:38] VITALS: BP 148/88; PULSE 76; RESP 20; TEMP 36.8; O2SAT 99; BMI 20.7
[2021-09-27 09:44] VITALS: BP 140/80; PULSE 71; RESP 18; O2SAT 98; O2SAT 99
--- NOTE | 2021-09-27 10:05 | P.PCN_ITS ---
- Procedure Date: 09/27/21 Time: 10:05 Anesthesiologist:: Edgardo Guerra CRNA Complications:: None Pre-procedure Diagnosis:: Degenerative disc disease lumbar spine multilevels. Lumbar facet arthropathy multilevel. Lumbar spondylosis. Post-procedure Diagnosis:: Same Indications for Procedure:: Patient is a very pleasant 55-year-old female that presents today for radiofrequency ablation lumbar spine L2-3, L3-4. Patient had significant improvement with medial branch block at this level. She rates her pain 6/10. Patient has had this in the past with significant improvement. Procedure Details:: Lumbar RFA None Pre-procedure Diagnosis: Degenerative disc disease of lumbar spine with lumbar spondylosis and facet arthropathy Post-procedure Diagnosis: Same Indications for Procedure: Patient is a pleasant 70-year-old white female who we are treating for low back pain with lumbar spondylosis and facet arthropathy. She is done well with medial branch blocks with 80% relief of her pain symptoms. She presents for radiofrequency ablation to the facet joint/medial branches of L4-5 and L5-S1 today. She has already had the right side done and is doing very well. She presents for the left side today. Procedure Details: Lumbar RFA Informed consent was obtained and the risk and benefits of the procedure was explained to the patient. Patient was placed prone on the procedure table. The patient was prepped and draped in sterile fashion. C-arm fluoroscopy was used to view the lumbar spine. The skin and subcutaneous tissues were anesthetized using lidocaine. I placed 20-gauge RF needles into the facet joints of L4-L5 and L5-S1 on the left side. We underwent sensory stimulation. There is good sensory stimulation at 0.8 V. We underwent motor stimulation. There is no motor stimulation at 2 V. We then anesthetized these levels with lidocaine and Depo- Medrol. I used a total of 40 mg Depo-Medrol for all 3 levels. I then burned all 3 levels of L4-5 and L5-S1 on the left side for 2 minutes at 80 ?C. Patient tolerated the procedure well with no complication. Plan and Disposition:: We will follow-up with this patient in 2 weeks. We will reevaluate her symptoms at that time. Plan and Disposition:: Patient was discharged without incident.
[2021-09-27 10:08] VITALS: BP 144/87; PULSE 74; RESP 20; O2SAT 99
== END 2021-09-27 10:09 | disposition home or self-care (01) ==
LOC: SC.PAINP 09:30
PROVIDERS: PCP Emergency Medicine; Visit Provider Nurse Anesthetist, Certified Registered
DX: M51.36 Other intervertebral disc degeneration, lumbar region (principal); M47.816 Spondylosis without myelopathy or radiculopathy, lumbar region
CPT/HCPCS: 64635; 64636; 76000; J1030

== ENCOUNTER → 2021-11-01 13:13 | Outpatient (POV) | payer OTHER, SELFPAY ==
[2021-11-01 13:25] VITALS: BP 140/99; PULSE 77; RESP 20; O2SAT 96; BMI 21.2
--- NOTE | 2021-11-01 15:45 | HMH.PAINSOAP ---
[facility] Pain Management SOAP Note Subjective:: Is a pleasant 55-year-old female who presents today for follow-up of lumbar RFA on 09/27/2021. We are currently treating the patient for degenerative disc disease of lumbar spine multilevels with lumbar facet arthropathy multilevel and lumbar spondylosis. Patient states she has had moderate relief with this injection. Patient states she had at least 50% improvement however it did not provide long-term relief. Today she rates her pain a 7 out of 10. She states her pain is all in her low back and neck as well. Patient states this is a aching, throbbing sensation. Patient denies any new trauma or injury to the site. Patient states that she had a stroke about 3 years ago and since that time her symptoms have worsened. She states she believes where she laid on the floor for 3 days from her stroke that it aggravated her previous low back pain. Patient states repetitive motion such as twisting and bending up and down increase her pain. She has a history of PRES syndrome that she developed from an overdose episode in 2019. Patient states she also has pain in her left leg that describes it as a constant drawing sensation that is worse with activity. She states she wears a leg brace for this however it is painful to use. She states she is planning on adding additional padding to this brace to help improve her comfort while using it. Patient does believe that part of her problem is that on her left foot, her toes curl downward and cause her to alter her gait. Patient has tried ibuprofen and Tylenol with minimal improvement. Patient has not tried any topical creams. She states she has seen physical therapy in the past that provided minimal improvement of her symptoms. She is currently prescribed gabapentin 100 mg 3 times a day [address] Dr. Macario. She also is on Suboxone therapy by Leonora Boswell. She is stable on these medications. She denies any side effects from these medications. Her Nigel is [id number]. It has been reviewed and appropriate. Review of Systems: General: No recent weight changes, no fever, no sleep disturbances Respiratory: No cough, no shortness of air, no recurring pulmonary infections Cardiovascular/peripheral vascular: No chest pain, no palpitations, no edema, no shortness of breath Gastrointestinal: No new onset incontinence, normal bowel movements reported Genitourinary: No new onset incontinence Musculoskeletal: Low back pain, left leg pain, neck pain Psychiatric: [Normal mood/affect] Neurological: [Denies weakness in extremities], [denies balance issues] Objective:: Physical Exam: General: Alert and oriented x3, no acute distress, pleasant and cooperative Lungs: Respirations even and unlabored, symmetrical chest expansion Eyes: PERRL Musculoskeletal: Flexion and extension of lumbar [spine] somewhat guarded secondary to pain, [antalgic gait noted] positive Kemps test Neurological: Speech clear, no gross sensory deficit Assessment:: Degenerative disc disease of lumbar spine multilevels with lumbar facet arthropathy, lumbar spondylosis, lumbar radiculopathy symptoms, neck pain Plan:: Patient still continues to have significant pain in her lumbar spine that radiates down her left leg. Patient had positive point tenderness along her lumbar spine and a positive Kemps test during today's exam. I did discuss with the patient regarding repeating a medial branch block at L4-L5 and L5-S1. Risk and benefits were discussed with the patient. She would like to proceed forward with this injection. I have also talked to the patient regarding a referral to podiatry for her left foot. I will order the patient a compounding cream at today's visit. We will schedule the patient for a medial branch block of L4-L5 and L5-S1. Patient has been instructed to contact the clinic with any concerns before the next appointment. Dr. Lu has reviewed this note and agrees with this plan of care. This note was dictated
== END ==
PROVIDERS: PCP Emergency Medicine; Visit Provider Nurse Practitioner Family
DX: M51.16 Intervertebral disc disorders with radiculopathy, lumbar region (principal); M47.26 Other spondylosis with radiculopathy, lumbar region; M54.2 Cervicalgia
CPT/HCPCS: 99212; G0463

== ENCOUNTER → 2021-11-30 06:17 | Outpatient (CLI) | payer OTHER, SELFPAY ==
[2021-11-30 18:34] LABS: Amphetamine/Metha Screen,Urine Negative ng/ml (<1000)
[2021-11-30 18:35] LABS: Barbiturates Screen,Urine Negative ng/ml (<200); Benzodiazepines Screen,Urine Negative ng/ml (<200)
[2021-11-30 18:36] LABS: Cannabinoid Screen,Urine Positive ng/ml (<50)
[2021-11-30 18:37] LABS: Cocaine Screen,Urine Negative ng/ml (<300)
[2021-11-30 18:38] LABS: Methadone Screen,Urine Negative ng/ml (<300); Opiate Screen,Urine Negative ng/ml (<300)
[2021-11-30 18:39] LABS: Phencyclidine Screen,Urine Negative ng/ml (<25)
== END ==
PROVIDERS: PCP Emergency Medicine; Visit Provider Emergency Medicine
DX: Z79.899 Other long term (current) drug therapy (principal)
CPT/HCPCS: 80305

== ENCOUNTER → 2021-12-05 11:07 | Outpatient (POV) | payer OTHER, SELFPAY ==
[2021-12-05 11:35] VITALS: BP 177/94; PULSE 69; RESP 18; TEMP 36.8; O2SAT 97; BMI 23.0
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
== END ==
PROVIDERS: PCP Emergency Medicine; Visit Provider Nurse Practitioner Family
DX: M51.16 Intervertebral disc disorders with radiculopathy, lumbar region (principal); M47.26 Other spondylosis with radiculopathy, lumbar region; M54.2 Cervicalgia
CPT/HCPCS: 99212; G0463

== ENCOUNTER 2021-12-20 10:08 | Day surgery (SDC) | payer OTHER, SELFPAY ==
[2021-12-20 10:16] VITALS: BP 147/82; PULSE 67; RESP 18; TEMP 36.8; O2SAT 99; BMI 23.8
[2021-12-20 10:27] VITALS: BP 147/91; PULSE 67; RESP 18; O2SAT 98
[2021-12-20 10:29] VITALS: BP 147/91; PULSE 67; RESP 18; O2SAT 98
--- NOTE | 2021-12-20 10:31 | P.PCN_ITS ---
Procedure Date: 12/20/21 Time: 10:32 Anesthesiologist:: Edgardo Guerra CRNA Complications:: None Pre-procedure Diagnosis:: Degenerative disc disease lumbar spine multilevels. Lumbar radiculopathy symptoms. Post-procedure Diagnosis:: Same. Indications for Procedure:: Patient is a pleasant 55-year-old female that comes our clinic today for repeat lumbar epidural steroid injections at the L4-5 level. Patient has had these in the past with significant provement terms of low back pain as well as bilateral leg radicular symptoms. Today she rates her pain 7/10. Procedure Details:: Procedure: Lumbar epidural steroid injection under fluoroscopy Informed consent was obtained and the risks and benefits of the procedure were explained to the patient. The patient was taken to the procedure room and noninvasive monitors placed, including noninvasive blood pressure cuff and pulse oximeter. The back was viewed using C-arm Fluoroscopy and prepped using Betadine as a cleansing solution and the L4-L5 interspace was palpated. Skin and subcutan eous tissues were anesthetized using lidocaine 1.5% and a 25-gauge needle. After this, an 18-gauge Touhy epidural needle was placed into the L4-L5 interspace and advanced using fluoroscopic guidance and loss of resistance to air until the epidural space was encountered. After confirmation of needle placement in the epidural space, with dye, a solution containing lidocaine 1.5%, 4 mL and Depo-Medrol 80 mg were incrementally injected into the lumbar epidural space. The patient tolerated the procedure well with no complications. The patient was observed in the Pain Clinic and then discharged home neurologically intact. Plan and Disposition:: Patient was discharged without incident.
[2021-12-20 10:40] VITALS: BP 153/90; PULSE 60; RESP 20
== END 2021-12-20 10:45 | disposition home or self-care (01) ==
PROVIDERS: PCP Emergency Medicine; Visit Provider Nurse Anesthetist, Certified Registered
DX: M51.16 Intervertebral disc disorders with radiculopathy, lumbar region (principal)
CPT/HCPCS: 62323; J1040

== ENCOUNTER → 2022-01-30 13:39 | Outpatient (POV) | payer OTHER, SELFPAY ==
[2022-01-30 13:59] VITALS: BP 124/79; PULSE 92; RESP 18; O2SAT 94; BMI 23.0
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
== END ==
PROVIDERS: PCP Emergency Medicine; Visit Provider Nurse Practitioner Family
DX: M51.16 Intervertebral disc disorders with radiculopathy, lumbar region (principal); M47.26 Other spondylosis with radiculopathy, lumbar region; G89.4 Chronic pain syndrome; Z72.0 Tobacco use
CPT/HCPCS: 99212; G0463

== ENCOUNTER → 2022-04-21 10:17 | Outpatient (POV) | payer OTHER, SELFPAY ==
[2022-04-21 10:26] VITALS: BP 148/100; PULSE 90; RESP 18; O2SAT 98; BMI 24.7
--- NOTE | 2022-04-21 11:02 | EXP.PAIN.SOA ---
[facility] Pain Management SOAP Note Subjective:: This patient is a pleasant 56-year-old female comes our clinic today for follow-up visit. Patient is here to discuss her chronic low back pain she describes as constant, dull, aching. She also complains of bilateral hip and leg radicular symptoms at times. Patient rates her pain 8/10. Patient has a history of CVA. Patient received lumbar epidural steroid injection on 12/20/2021. She reports 50% improvement terms of her overall low back pain as well as bilateral hip and leg radicular symptoms lasting 2 to 3 weeks. Patient continues on chronic Suboxone therapy. Her Nigel #[id number] is been reviewed and appropriate. Upon examination she has some minor midline low back pain. However, the majority of her pain is off the midline bilaterally in the lower lumbar high buttock area. She has positive Jake's test bilaterally. Positive SI joint compression test bilaterally. Positive Gaenslen's test bilaterally. Her gait is antalgic due to stroke and continued weakness on the left side. Patient requesting information regarding intrathecal pain pump. She was denied spinal cord stimulator trial. I discussed in detail with the patient regarding bupivacaine intrathecal pain pump trial. She is interested in this. However, she would like to start with bilateral sacroiliac joint injections. I think this is reasonable. Objective:: Patient is awake alert Alvin x3. In no acute distress. Flexion-extension lumbar spine very guarded secondary to pain. Deep tendon reflexes upper and lower extremities normal. Motor strength upper extremities normal. Lower extremities somewhat weakened secondary to CVA. There is no gross sensory deficit. Gait is antalgic. Patient requires a cane for stability. Assessment:: Degenerative disc disease lumbar spine multilevels. Lumbar radiculopathy. Lumbar facet arthropathy. Lumbar spondylosis. Lumbar radiculopathy. Sacroiliitis bilateral. Plan:: I will schedule patient for bilateral sacroiliac joint injections of cortisone. Also, we will begin the necessary paperwork to proceed in the near future with bupivacaine intrathecal pain pump trial. [facility] Disclaimer: The information contained in this section may have been updated after the patient was seen, as this information can be updated by other users. Medical History Anxiety COPD (chronic obstructive pulmonary disease) CVA (cerebral vascular accident) Depression GERD (gastroesophageal reflux disease) Hepatitis Hyperlipidemia LDL goal <100 Hypertension Insomnia Kidney stones Major depressive disorder Surgical History H/O total hysterectomy History of appendectomy Family History (Updated 02/27/22 @ 12:48 by KURT Duenas) Other Cancer Social History Smoking Status: Current every day smoker tobacco type: cigarettes packs per day: 1 and e-cigarettes second hand exposure: Yes alcohol intake: never substance use type: marijuana current occupational status: disabled Travel in the last 8 weeks: None household members: none housing: house number of children: 4 current occupational exposures/hazards: No caffeine: Yes
== END ==
PROVIDERS: PCP Emergency Medicine; Visit Provider Nurse Anesthetist, Certified Registered
DX: M51.16 Intervertebral disc disorders with radiculopathy, lumbar region (principal); M47.26 Other spondylosis with radiculopathy, lumbar region; M46.1 Sacroiliitis, not elsewhere classified
CPT/HCPCS: 99212; G0463

== ENCOUNTER 2022-05-09 08:41 | Day surgery (SDC) | payer OTHER, SELFPAY ==
[2022-05-09 08:54] VITALS: BP 145/93; PULSE 80; RESP 18; TEMP 36.8; O2SAT 97; BMI 23.9
[2022-05-09 09:24] VITALS: BP 149/77; PULSE 69; RESP 18; O2SAT 97
[2022-05-09 09:28] VITALS: BP 143/94; PULSE 67; RESP 18; O2SAT 97
--- NOTE | 2022-05-09 10:35 | P.PCN_ITS ---
Procedure Date: 05/09/22 Time: 10:00 Anesthesiologist:: Edgardo Guerra CRNA Complications:: None Pre-procedure Diagnosis:: Bilateral sacroiliitis Post-procedure Diagnosis:: Same Indications for Procedure:: Patient is a pleasant 56-year-old female comes our clinic today for bilateral sacroiliac joint injections. Upon examination she has extreme point tenderness over the bilateral sacroiliac joints. She rates her pain 7/10. Patient describes low lumbar bilateral pain. Procedure Details:: Procedure: Bilateral sacroiliac joint injections under fluoroscopy Informed consent was obtained and the risks and benefits of the procedure were explained to the patient.~ The patient was taken to the procedure room and noninvasive monitors were placed including a noninvasive blood pressure cuff and pulse oximeter.~ The patient was placed prone on the procedure table. Both hips were cleansed using Betadine as a cleansing solution. C-arm fluoroscopy was used to view the right sacroiliac joint.~ The skin and subcutaneous tissues were anesthetized using lidocaine 1.5% and a 25-gauge needle.~ After this, a 22-gauge spinal needle was inserted under fluoroscopic guidance into the inferior aspect of the right sacroiliac joint.~ Omnipaque dye was injected and good spread was seen throughout the joint.~ After this, approximately 5 mL of bupivacaine, 0.25% and Depo-Medrol, 40 mg was incrementally injected into the right sacroiliac joint. We then moved to the left sacroiliac joint.~ The skin and subcutaneous tissues were anesthetized using lidocaine 1.5% and a 25-gauge needle.~ After this, a 22- gauge spinal needle was inserted under fluoroscopic guidance into the inferior aspect of the left sacroiliac joint.~ Omnipaque dye was injected and good spread was seen throughout the joint. After this, approximately 5 mL of bupivacaine, 0.25% and Depo-Medrol, 40 mg was incrementally injected into the left sacroiliac joint.~ The patient tolerated the procedure well with no complications. The patient was observed in the Pain Clinic and then was discharged home neurologically intact. Plan and Disposition:: Patient was discharged without incident.
== END 2022-05-09 09:28 | disposition home or self-care (01) ==
LOC: SC.PAINP 08:41
PROVIDERS: PCP Emergency Medicine; Visit Provider Nurse Anesthetist, Certified Registered
DX: M46.1 Sacroiliitis, not elsewhere classified (principal); F17.210 Nicotine dependence, cigarettes, uncomplicated
CPT/HCPCS: 27096; G0260; J1040

== ENCOUNTER → 2022-06-14 13:27 | Outpatient (POV) | payer OTHER, SELFPAY ==
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
[2022-06-14 13:53] VITALS: BP 128/96; PULSE 82; RESP 18; O2SAT 97; BMI 23.9
== END ==
PROVIDERS: PCP Emergency Medicine; Visit Provider Nurse Practitioner Family
DX: M51.16 Intervertebral disc disorders with radiculopathy, lumbar region (principal); M47.26 Other spondylosis with radiculopathy, lumbar region; M46.1 Sacroiliitis, not elsewhere classified
CPT/HCPCS: 99212; G0463

== ENCOUNTER → 2022-08-21 13:50 | Outpatient (CLI) | payer OTHER, SELFPAY ==
[2022-08-21 18:19] LABS: Basophils % 0.3 % (0.1-2.0); Eosinophils # 0.1 K/mm3 (0.0-0.4); Eosinophils % 1.3 % (0.1-12.0); Hematocrit 43.8 % (37.0-47.0); Hemoglobin 14.4 g/dL (12.2-16.2); Lymphocytes # 1.9 K/mm3 (0.7-4.5); Lymphocytes % 25.2 % (10-50); Mean Corpuscular HGB Conc 32.8 g/dL (31.8-35.4); Mean Corpuscular Hemoglobin 30.2 pg (27.0-31.2); Mean Corpuscular Volume 91.8 fl (81-99); Mean Platelet Volume 8.3 fl (7.4-10.4); Monocytes # 0.5 K/mm3 (0.1-1.0); Monocytes % 6.2 % (1.7-9.3); Neutrophils % 66.9 % (37.0-80.0); Platelet Count 318 K/mm3 (142-424); Red Blood Count 4.78 M/mm3 (4.20-5.40); Red Cell Distribution Width 13.3 % (11.5-17.5); White Blood Count 7.4 K/mm3 (4.8-10.8)
[2022-08-21 18:25] LABS: Alanine Aminotransferase 42 U/L (12-78); Albumin Level 4.2 g/dl (3.5-5.0); Albumin/Globulin Ratio 1.3 (1.1-1.8); Alkaline Phosphatase 100 U/L (38-126); Aspartate Amino Transferase 53 U/L (14-36); Bilirubin,Total 0.6 mg/dl (0.2-1.3); Blood Urea Nitrogen 14 mg/dl (7-17); Carbon Dioxide 27 mmol/L (22.0-30.0); Chloride 104 mmol/L (98-107); Chol/HDL Ratio 3.7 (1-3.5); Cholesterol 231 mg/dl (140-200); Estimated Glomerular Filt Rate 87 ml/min (>60); GFR (African American) 106 ML/MIN (>60); Globulin 3.3 g/dL (1.3-3.2); Glucose 115 mg/dl (74-100); HDL Cholesterol 63 mg/dl (40-60); Sodium 139 mmol/L (136-145); Total Protein,Serum 7.5 g/dl (6.3-8.2); Triglycerides 186 mg/dl (30-150); VLDL Cholesterol 37 mg/dL (0-40)
[2022-08-21 18:35] LABS: Direct LDL Cholesterol 129.71 mg/dL (100-129)
[2022-08-21 18:40] LABS: Free T4 (Free Thyroxine) 0.79 ng/dl (0.78-2.19)
[2022-08-21 18:42] LABS: 25-OH Vitamin D, Total 21.3 ng/mL (30-100)
[2022-08-21 18:56] LABS: Thyroid Stimulating Hormone 1.25 uIU/mL (0.465-4.68)
== END ==
PROVIDERS: PCP Emergency Medicine; Visit Provider Emergency Medicine
DX: I10 Essential (primary) hypertension (principal); E55.9 Vitamin D deficiency, unspecified; Z79.899 Other long term (current) drug therapy
CPT/HCPCS: 80053; 80061; 82306; 84439; 84443; 85025

== ENCOUNTER → 2022-08-24 10:20 | Outpatient (POV) | payer OTHER, SELFPAY ==
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
[2022-08-24 11:39] VITALS: BP 165/97; PULSE 71; RESP 18; O2SAT 97; BMI 25.2
== END ==
PROVIDERS: PCP Emergency Medicine; Visit Provider Nurse Practitioner Family
DX: M51.16 Intervertebral disc disorders with radiculopathy, lumbar region (principal); M47.26 Other spondylosis with radiculopathy, lumbar region; G89.4 Chronic pain syndrome
CPT/HCPCS: 99212; G0463

== ENCOUNTER → 2023-01-18 10:53 | Outpatient (POV) | payer OTHER, SELFPAY ==
--- NOTE | 2023-01-18 11:16 | EXP.PAIN.SOA ---
[facility] Pain Management SOAP Note Subjective:: Patient is a pleasant 57-year-old female who presents today for follow-up. We are currently treating the patient for degenerative disc disease of lumbar spine with lumbar radiculopathy symptoms, lumbar facet arthropathy, lumbar spondylosis, neck pain, sacroiliitis. Today she rates her pain an 8 out of 10. Patient states she continues to experience significant pain in her low back along the left side with radiating symptoms into her left hip. Patient does describe her pain as an aching, throbbing sensation with numbness that is worse with increased ambulation or activity. Patient does state that prolonged standing, sitting or walking seems to worsen her pain. It does interfere with her ability perform activities of daily living such as cooking and cleaning. Patient has previously had a psychological evaluation and was deemed an appropriate candidate for the spinal cord stimulator trial or pain pump trial however insurance denied both of these. Patient is still wanting to proceed forward with the spinal cord stimulator trial if anyway possible. Patient has a history of stroke and [place] ES syndrome. Patient does typically have worsening symptoms all along her left side related to the stroke. She does use a leg brace and cane to help with ambulation. Patient has tried and failed conservative therapy such as oral medications, heat and ice, topicals, physical therapy, at home stretching and exercise for longer than 12 weeks. Patient has also done injection therapy. Patient is on Suboxone therapy and gabapentin 600 mg 3 times a day from outside providers. She denies any side effects from these medications. Her Nigel has been reviewed and is appropriate. Review of Systems: General: No recent weight changes, no fever, no sleep disturbances Respiratory: No cough, no shortness of air, no recurring pulmonary infections Cardiovascular/peripheral vascular: No chest pain, no palpitations, no edema, no shortness of breath Gastrointestinal: No new onset incontinence, normal bowel movements reported Genitourinary: No new onset incontinence Musculoskeletal: Low back pain, left hip pain Psychiatric: [Normal mood/affect] Neurological: [Denies weakness in extremities], [denies balance issues] Objective:: Physical Exam: General: Alert and oriented x3, no acute distress, pleasant and cooperative Lungs: Respirations even and unlabored, symmetrical chest expansion Eyes: PERRL Musculoskeletal: Flexion and extension of lumbar [spine] somewhat guarded secondary to pain, [antalgic gait noted] point tenderness along left SI with positive left Jake's, Rashmi's, Gaenslen's, compression and distraction exam Neurological: Speech clear, no gross sensory deficit Assessment:: Degenerative disc disease of lumbar spine with lumbar radiculopathy symptoms, lumbar facet arthropathy, lumbar spondylosis, neck pain, sacroiliitis, chronic pain syndrome Plan:: Patient is experiencing worsening pain in her low back and left hip with limited range of motion. Patient did have extreme point tenderness along her left SI with a positive left Jake's, Rashmi's, Gaenslen's, compression and distraction exam. I have discussed with the patient that she may benefit from a repeat left SI injection. Patient will be scheduled for left SI injection. Patient has been instructed to contact the clinic with any concerns before the next appointment. Dr. Lu has reviewed this note and agrees with this plan of care. This note was dictated using voice recognition software and make contain errors or omissions. [facility] Disclaimer: The information contained in this section may have been updated after the patient was seen, as this information can be updated by other users. Medical History Anxiety COPD (chronic obstructive pulmonary disease) CVA (cerebral vascular accident) Depression GERD (gastroesophageal reflux disea
[2023-01-18 12:24] VITALS: BP 140/90; PULSE 75; RESP 18; O2SAT 96; BMI 25.6
== END ==
PROVIDERS: PCP Emergency Medicine; Visit Provider Nurse Practitioner Family
DX: M51.16 Intervertebral disc disorders with radiculopathy, lumbar region (principal); M47.26 Other spondylosis with radiculopathy, lumbar region; M54.2 Cervicalgia; M46.1 Sacroiliitis, not elsewhere classified; G89.4 Chronic pain syndrome
CPT/HCPCS: 99212; G0463

== ENCOUNTER 2023-02-06 09:00 | Day surgery (SDC) | payer OTHER, SELFPAY ==
[2023-02-06 09:23] VITALS: BP 137/90; PULSE 80; RESP 16; TEMP 36.3; O2SAT 97; BMI 24.7
[2023-02-06 09:32] VITALS: BP 135/69; PULSE 67; O2SAT 96
[2023-02-06 09:34] VITALS: BP 135/69; PULSE 66; O2SAT 97
[2023-02-06 09:35] VITALS: BP 155/85; PULSE 64; RESP 16; O2SAT 97
--- NOTE | 2023-02-06 09:36 | EXP.PAIN.PRO ---
Procedure Date: 02/06/23 Time: 09:20 Anesthesiologist:: Edgardo Guerra CRNA Complications:: None Pre-procedure Diagnosis:: Left sacroiliitis. Post-procedure Diagnosis:: Same. Indications for Procedure:: Patient is a very pleasant 57-year-old female who comes our clinic today for repeat left sacroiliac joint injection. Patient reports left low lumbar back pain as well as left posterior hip pain. She describes pain as constant, dull, aching. She rates her pain 7/10. Patient has responded well to the same injection in the past. Patient also reports to having difficulty transitioning from sitting to standing. Procedure Details:: Procedure: Left sacroiliac injection under fluoroscopy Informed consent was obtained and the risk and benefits of the procedure were explained to the patient.~ The patient was taken to the procedure room and noninvasive monitors were placed including noninvasive blood pressure cuff and pulse oximeter.~ The patient was placed prone on the procedure table.~ The~ left hip was cleansed using Betadine as a cleansing solution.~ C-arm fluorosocpy was used to view the left SI joint.~ The skin and subcutaneous tissues were anesthetized using Lidocaine 1.5% and a 25-gauge needle.~ After this, a 22-gauge spinal needle was inserted under fluoroscopic guidance into the inferior aspect of the left SI joint.~ Omnipaque dye was injected and a good spread was seen throughout the joint.~ After this, approximately 5 mL of bupivacaine 0.25% and Depo-Medrol 40 mg was incrementally injected into the sacroiliac joint.~ The patient tolerated the procedure well with no complications.~ The patient was observed in the Pain Clinic for a period of 30-45 minutes, then discharged home neurologically intact.~ Plan and Disposition:: Patient was discharged without incident.
== END 2023-02-06 09:35 | disposition home or self-care (01) ==
PROVIDERS: PCP Emergency Medicine; Visit Provider Nurse Anesthetist, Certified Registered
DX: M46.1 Sacroiliitis, not elsewhere classified (principal)
CPT/HCPCS: 27096; G0260; J1040

== ENCOUNTER 2023-05-21 14:49 | Outpatient (CLI) | payer OTHER, SELFPAY ==
[2023-05-21 15:40] VITALS: PULSE 81; PULSE 84
[2023-05-21] MEDS: ALBUTEROL 0.083% 2.5 MG/3 ML NEB IH (15:40)
== END 2023-05-21 23:59 ==
LOC: RT 14:50
PROVIDERS: PCP Nurse Practitioner Family; Visit Provider Nurse Practitioner Family
DX: R06.02 Shortness of breath (principal); Z72.0 Tobacco use
CPT/HCPCS: 94060; 94618; 94640; 94726; 94729

== ENCOUNTER 2023-05-22 10:38 | Outpatient (CLI) | payer OTHER, SELFPAY ==
[2023-05-22 11:44] LABS: Basophils # 0.1 K/mm3 (0-0.2); Basophils % 0.7 % (0.1-2.0); Eosinophils # 0.3 K/mm3 (0.0-0.4); Eosinophils % 3.7 % (0.1-12.0); Hematocrit 43.9 % (37.0-47.0); Hemoglobin 14.6 g/dL (12.2-16.2); Lymphocytes % 28.5 % (10-50); Mean Corpuscular HGB Conc 33.2 g/dL (31.8-35.4); Mean Corpuscular Hemoglobin 31.1 pg (27.0-31.2); Mean Corpuscular Volume 93.5 fl (81-99); Mean Platelet Volume 8.4 fl (7.4-10.4); Monocytes # 0.5 K/mm3 (0.1-1.0); Monocytes % 7.2 % (1.7-9.3); Neutrophils # 4.3 K/mm3 (1.8-7.8); Neutrophils % 59.8 % (37.0-80.0); Platelet Count 259 K/mm3 (142-424); Red Blood Count 4.69 M/mm3 (4.20-5.40); Red Cell Distribution Width 12.6 % (11.5-17.5); White Blood Count 7.2 K/mm3 (4.8-10.8)
[2023-05-22 11:47] LABS: Alanine Aminotransferase 32 U/L (12-78); Albumin Level 3.9 g/dl (3.5-5.0); Albumin/Globulin Ratio 1.4 (1.1-1.8); Alkaline Phosphatase 81 U/L (38-126); Aspartate Amino Transferase 41 U/L (14-36); Bilirubin,Total 0.5 mg/dl (0.2-1.3); Blood Urea Nitrogen 10 mg/dl (7-17); Calcium 8.9 mg/dl (8.4-10.2); Carbon Dioxide 29 mmol/L (22.0-30.0); Chloride 108 mmol/L (98-107); Estimated Glomerular Filt Rate 74 ml/min (>60); GFR (African American) 90 ML/MIN (>60); Globulin 2.7 g/dL (1.3-3.2); Glucose 78 mg/dl (74-100); Sodium 141 mmol/L (136-145); Total Protein,Serum 6.6 g/dl (6.3-8.2)
[2023-05-22 12:00] LABS: INR 0.95 (0.9-1.1); Prothrombin Time 10.3 seconds (10.1-12.5)
[2023-05-23 08:18] LABS: HIV Screen 4th Generation wRfx Non Reactive (Non Reactive)
[2023-05-23 14:43] LABS: Hep A Ab, Total Positive (Negative); Hep B Core Ab, Total Negative (Negative); Hep B Surface Ab, Qual Non Reactive (.)
[2023-05-26 00:08] LABS: HCV Genotype Charge YES; HCV RNA (International Units) 15300000 IU/mL (.); Hepatitis C Genotype 1a (.)
[2023-05-26 09:10] LABS: Hepatitis B Surface Antigen Negative; Hepatitis C Antibody Reactive
[2023-05-26 09:11] LABS: Alpha 2-Macroglobulins, Qn 206; Fibrosis Score 0.11; Fibrosis Stage FV0-NO FIBROSIS; Haptoglobin 111
[2023-05-26 09:12] LABS: ALT (SGPT) P5P 28; Apolipoprotein A-1 164; Bilirubin, Total 0.3; GGT 16
== END 2023-05-22 23:59 ==
LOC: LAB 10:39
PROVIDERS: PCP Nurse Practitioner Family; Visit Provider Nurse Practitioner Family
DX: B18.2 Chronic viral hepatitis C (principal); B34.9 Viral infection, unspecified
CPT/HCPCS: 36415; 80053; 81596; 85025; 85610; 86703; 86704; 86706; 86708; 87340; 87380; 87522; 87902; G0432

== ENCOUNTER 2023-06-11 11:27 | Outpatient (POV) | payer OTHER, SELFPAY ==
[2023-06-11 11:58] VITALS: BP 179/97; PULSE 71; RESP 18; O2SAT 97; BMI 25.6
--- NOTE | 2023-06-11 12:08 | A.OFFVIS_ITS ---
[facility] Pain Management SOAP Note Subjective:: Patient is a pleasant 57-year-old female who presents today for follow-up. We are currently treating the patient for degenerative disc disease of lumbar spine with lumbar radiculopathy symptoms, lumbar facet arthropathy, lumbar spondylosis, neck pain, sacroiliitis. Today she rates her pain an 9 out of 10. She denies any new trauma or injury. She does state that she is having worsening pain all in her low back, left hip and down her entire left extremity. Patient does describe her pain as an aching, throbbing sensation with numbness that is worse with increased ambulation or activity. She states that she feels like she has more weakness in this leg and it will occasionally give out. The pain does interfere with her ability perform activities of daily living such as cooking and cleaning. Patient has previously had a psychological evaluation and was deemed an appropriate candidate for the spinal cord stimulator trial or pain pump trial however insurance denied both of these. Patient is still wanting to proceed forward with the spinal cord stimulator trial if anyway possible. Patient has a history of stroke and PRES syndrome. Patient does typically have worsening symptoms all along her left side related to the stroke. She does use a leg brace and cane to help with ambulation. Patient has tried and failed conservative therapy such as oral medications, heat and ice, topicals, physical therapy, at home stretching and exercise for longer than 12 weeks. Patient has also done injection therapy. Patient is on Suboxone therapy and gabapentin 600 mg 3 times a day from outside providers. She denies any side effects from these medications. Her Nigel has been reviewed and is appropriate. Review of Systems: General: No recent weight changes, no fever, no sleep disturbances Respiratory: No cough, no shortness of air, no recurring pulmonary infections Cardiovascular/peripheral vascular: No chest pain, no palpitations, no edema, no shortness of breath Gastrointestinal: No new onset incontinence, normal bowel movements reported Genitourinary: No new onset incontinence Musculoskeletal: Low back pain, left hip pain, left leg pain Psychiatric: [Normal mood/affect] Neurological: [Denies weakness in extremities], [denies balance issues] Objective:: Physical Exam: General: Alert and oriented x3, no acute distress, pleasant and cooperative Lungs: Respirations even and unlabored, symmetrical chest expansion Eyes: PERRL Musculoskeletal: Flexion and extension of lumbar [spine] somewhat guarded secondary to pain, [antalgic gait noted] positive left leg raise with decreased sensation to light touch and decreased reflexes Neurological: Speech clear, no gross sensory deficit FINDINGS: Multiplanar MR imaging of the lumbar spine was performed without contrast. On the sagittal T2-weighted images, disc degeneration is seen at multiple levels. There are endplate changes greatest at L4-L5. The vertebral alignment is normal. There is no evidence of fracture. The conus has an unremarkable appearance. There is no significant central canal stenosis. L1-2: An annular bulge is present. L2-3: There is an annular bulge with a left foraminal disc protrusion and annular tear. There is moderate left neural foraminal narrowing. L3-4: There is an annular bulge with a left foraminal disc protrusion. There is mild left neural foraminal narrowing. L4-5: There is an annular bulge, facet arthropathy and vertebral osteophytes. There is a left foraminal disc protrusion with annular tear. There is mild right and moderate left neural foraminal narrowing. L5-S1: There is no significant central canal stenosis or neural foraminal narrowing. IMPRESSION: Disc protrusions at L2-L3, L3-L4, and L4-L5 with multilevel neural foraminal narrowing. No significant central canal stenosis. Reviewed, Interpreted and Dictated by Mick Ortiz III, MD Transcribed by Geovany Gan Authenticated by Mick Ortiz III, MD on 06/17/2021 03:33:36 PM [facility] Assessment:: Degenerative disc disease of lumbar spine with lumbar radiculopathy symptoms, lumbar spondylosis, neck pain, sacroiliitis, chronic pain syndrome Plan:: Patient is experiencing worsening pain in her low back with radiating symptoms down her entire left extremity. Patient did have numbness and tingling with a positive leg raise and decreased sensation to light touch and decreased reflexes. I have discussed with the patient that she may benefit from left transforaminal epidural steroid injection. Risk and benefits were discussed with patient and she would like to proceed forward with this plan of care. Patient has tried and failed conservative treatment. Patient is not on any blood thinners. We will schedule the patient for a left transforaminal epidural steroid injection L3-L4 and L4-L5 under fluoroscopy. Patient did have questions regarding increasing her gabapentin however this is written by her primary care provider. I have discussed with the patient that she should discuss this with their office. If this is a medication in the future that she would like it is to take over it would have to come from their office with verbal or written request. Patient acknowledges understanding. Patient has been instructed to contact the clinic with any concerns before the next appointment. Dr. Lu has reviewed this note and agrees with this plan of care. This note was dictated using voice recognition software and make contain errors or omissions. [facility] Disclaimer: The information contained in this section may have been updated after the patient was seen, as this information can be updated by other users. Medical History Anxiety Carpal tunnel syndrome COPD (chronic obstructive pulmonary disease) CVA (cerebral vascular accident) Depression GERD (gastroesophageal reflux disease) Hepatitis Hyperlipidemia LDL goal <100 Hypertension Insomnia Kidney stones Major depressive disorder Surgical History H/O total hysterectomy [facility] in 2006 History of appendectomy Hx of tonsillectomy Hx of tubal ligation Family History Mother Cancer breast Grandmother Cancer breast Social History Smoking Status: Current every day smoker tobacco type: cigarettes packs per day: 1 and e-cigarettes second hand exposure: Yes alcohol intake: never substance use type: marijuana current occupational status: other Travel in the last 8 weeks: None household members: none housing: house number of children: 4 current occupational exposures/hazards: No caffeine: Yes
== END 2023-06-11 23:59 ==
LOC: SC.PAIN 11:27
PROVIDERS: Visit Provider Nurse Practitioner Family
DX: M51.16 Intervertebral disc disorders with radiculopathy, lumbar region (principal); M47.26 Other spondylosis with radiculopathy, lumbar region; M54.2 Cervicalgia; M46.1 Sacroiliitis, not elsewhere classified; G89.4 Chronic pain syndrome
CPT/HCPCS: 99212; G0463

== ENCOUNTER 2023-07-03 09:38 | Day surgery (SDC) | payer OTHER, SELFPAY ==
[2023-07-03 09:59] VITALS: BP 142/90; PULSE 74; RESP 18; TEMP 36.6; O2SAT 98; BMI 27.2
[2023-07-03] MEDS: LIDOCAINE 1% 5ML PF VIAL 5 ML (10:25)
[2023-07-03 10:27] VITALS: BP 148/97; PULSE 64; RESP 18; O2SAT 96
[2023-07-03] MEDS: methylPREDNISolone ACETATE 80MG/ML VIAL 80 MG (10:27)
[2023-07-03 10:28] VITALS: BP 148/97; PULSE 68; RESP 18; O2SAT 96
[2023-07-03] MEDS: IOPAMIDOL-200 (41%);10ML VIAL 2 ML IV (10:35)
--- NOTE | 2023-07-03 10:36 | P.PCN_ITS ---
Procedure Date: 07/03/23 Time: 10:20 Anesthesiologist:: Edgardo Guerra CRNA Complications:: None Pre-procedure Diagnosis:: Degenerative disc lumbar spine multilevels. Lumbar radiculopathy. Lumbar disc bulge L3-4, L4-5. Post-procedure Diagnosis:: Same. Indications for Procedure:: Patient is a very pleasant 57-year-old female comes our clinic today for a left L3-4, L4-5 transforaminal epidural steroid injection. According to the patient she responded well to this injection in the past at the same levels. She rates her pain today 6/10. She reports low lumbar back pain with left hip and leg radicular symptoms in the form of numbness to the calf. Procedure Details:: Details of the procedure were explained to the patient. The patient was taken the procedure room placed in the prone position. The area of the lumbar spine was cleansed using chlorhexidine as a cleansing solution. At this time using fluoroscopy guidance markers were placed on the left lateral border of the L3 and L4 vertebral body. The skin and subcutaneous tissue was anesthetized using 1% lidocaine and 25-gauge needle. At this time using a 22-gauge 3-1/2 inch spinal needle the left upper one third of the L3-4 foramen needle positions were confirmed and a lateral view using fluoroscopy and contrast dye. The same was carried out at the left L4-5 foramen at this time 1 cc of 1% lidocaine +20 mg of Depo-Medrol was injected at each level after negative aspiration. [place] were removed. Band-Aid applied. Patient tolerated the procedure without difficulty. There are no complications. Plan and Disposition:: Patient was discharged without incident.
[2023-07-03 10:37] VITALS: BP 152/103; PULSE 66; RESP 16; O2SAT 96
== END 2023-07-03 10:37 | disposition home or self-care (01) ==
PROVIDERS: PCP Nurse Practitioner Family; Visit Provider Nurse Anesthetist, Certified Registered
DX: M51.16 Intervertebral disc disorders with radiculopathy, lumbar region (principal); M51.26 Other intervertebral disc displacement, lumbar region
CPT/HCPCS: 64483; 64484; J1010; Q9966

== ENCOUNTER 2023-07-19 10:33 | Outpatient (POV) | payer OTHER, SELFPAY ==
[2023-07-19 10:40] VITALS: BP 174/94; PULSE 84; RESP 16; O2SAT 96; BMI 26.5
--- NOTE | 2023-07-19 11:13 | A.OFFVIS_ITS ---
[facility] Pain Management SOAP Note Subjective:: Patient is a pleasant 57-year-old female who presents today for follow-up of left transforaminal epidural steroid injection L3-L4 and L4-L5 on 07/03/2023. Today she rates her pain a 9 out of 10. Patient denies any new trauma or injury. She does state that she had at least 40% improvement following this injection however she is already back to her baseline. She states the pain is a constant aching, throbbing sensation with numbness and weakness down her left extremity. Patient does state the pain interferes with her ability perform activities of daily living. Patient was deemed an appropriate candidate for spinal cord stimulator in the past however her insurance denied this option. Patient has tried and failed conservative therapy. Patient is on Suboxone therapy and gabapentin from an outside provider. She denies any side effects from this medication. Her Nigel has been reviewed and is appropriate. Review of Systems: General: No recent weight changes, no fever, no sleep disturbances Respiratory: No cough, no shortness of air, no recurring pulmonary infections Cardiovascular/peripheral vascular: No chest pain, no palpitations, no edema, no shortness of breath Gastrointestinal: No new onset incontinence, normal bowel movements reported Genitourinary: No new onset incontinence Musculoskeletal: Low back pain, left leg pain Psychiatric: [Normal mood/affect] Neurological: [Denies weakness in extremities], [denies balance issues] Objective:: Physical Exam: General: Alert and oriented x3, no acute distress, pleasant and cooperative Lungs: Respirations even and unlabored, symmetrical chest expansion Eyes: PERRL Musculoskeletal: Flexion and extension of lumbar [spine] somewhat guarded secondary to pain, [antalgic gait noted] Neurological: Speech clear, no gross sensory deficit Assessment:: Degenerative disc disease of lumbar spine with lumbar radiculopathy symptoms, lumbar spondylosis, sacroiliitis, neck pain Plan:: Patient continues to experience significant pain in her low back and left leg with limited range of motion. I discussed with patient that she may benefit from a lumbar epidural steroid injection. Risk and benefits were discussed with patient and she would like to proceed forward with this plan of care. Patient has tried and failed conservative therapy including oral medication, heat ice, topicals, physical therapy, at home stretching exercise for longer than 6 weeks. We will schedule the patient for an LESI L4-L5 under fluoroscopy. Patient has been instructed to contact the clinic with any concerns before the next appointment. Dr. Lu has reviewed this note and agrees with this plan of care. This note was dictated using voice recognition software and make contain errors or omissions. [facility] Disclaimer: The information contained in this section may have been updated after the patient was seen, as this information can be updated by other users. Medical History Carpal tunnel syndrome Insomnia Major depressive disorder Kidney stones Hepatitis Depression CVA (cerebral vascular accident) COPD (chronic obstructive pulmonary disease) GERD (gastroesophageal reflux disease) Hyperlipidemia LDL goal <100 Hypertension Anxiety Surgical History Hx of tubal ligation Hx of tonsillectomy H/O total hysterectomy [facility] in 2006 History of appendectomy Family History Mother Cancer breast Grandmother Cancer breast Social History (Updated 07/10/23 @ 13:41 by Angi Gonzalez) Smoking Status: Current some day smoker second hand exposure: Yes alcohol intake: never substance use type: marijuana current occupational status: other Travel in the last 8 weeks: None household members: none housing: house number of children: 4 current occupational exposures/hazards: No caffeine: Yes
== END 2023-07-19 23:59 | disposition home or self-care (01) ==
LOC: SC.PAIN 10:33
PROVIDERS: PCP Nurse Practitioner Family; Visit Provider Nurse Practitioner Family
DX: M51.16 Intervertebral disc disorders with radiculopathy, lumbar region (principal); M47.26 Other spondylosis with radiculopathy, lumbar region; M46.1 Sacroiliitis, not elsewhere classified; M54.2 Cervicalgia
CPT/HCPCS: 99212; G0463

== ENCOUNTER 2023-08-17 13:18 | Outpatient (POV) | payer OTHER, SELFPAY ==
[2023-08-17 14:04] VITALS: BP 141/89; PULSE 92; RESP 18; O2SAT 96; BMI 27.2
--- NOTE | 2023-08-17 14:08 | EXP.PAIN.SOA ---
[facility] Pain Management SOAP Note Subjective:: Patient is a very pleasant 57-year-old female comes our clinic today for follow-up visit after insurance denial of intralaminar lumbar epidural steroid injection at the L4-5 level. Patient had lumbar transforaminal L3-4, L4-5 on the left on 07/03/2023. She had temporary relief in terms of her left hip and leg radiculopathy symptoms. Today she reports low lumbar back pain as well as left hip and leg radicular symptoms to the foot. She describes the pain as constant, dull, sharp, stabbing. She rates the pain 9/10. Patient reports very little symptoms in the right hip or leg. Upon examination she has extreme point tenderness over the lumbar spine. Pain greater on the left more so than right. Patient is status post CVA several years ago and walks with a cane for stability. Objective:: Patient is awake alert [place] x 3. In no acute distress. Flexion-extension lumbar spine very guarded secondary to pain. Deep tendon reflexes upper lower extremities normal. Motor strength upper extremities normal. Lower extremities normal. However, weakness on the right side both arm and right leg. Her gait is antalgic. She walks with a cane for stability. Assessment:: Degenerative disc lumbar spine multilevels. Lumbar radiculopathy. Lumbar disc bulge lumbar spine. Lumbar spondylosis. Plan:: Discussed in detail with the patient regarding resubmitting to insurance for lumbar epidural steroid injection at the L4-5 level. Again, patient has tried and failed conservative measures such as NSAIDs, acetaminophen, physical therapy, home exercise program. She continues on Suboxone and gabapentin from an outside provider. Her Nigel's been reviewed and is appropriate. [facility] Disclaimer: The information contained in this section may have been updated after the patient was seen, as this information can be updated by other users. Medical History Carpal tunnel syndrome Insomnia Major depressive disorder Kidney stones Hepatitis Depression CVA (cerebral vascular accident) COPD (chronic obstructive pulmonary disease) GERD (gastroesophageal reflux disease) Hyperlipidemia LDL goal <100 Hypertension Anxiety Surgical History Hx of tubal ligation Hx of tonsillectomy H/O total hysterectomy ART [facility]ORO in 2006 History of appendectomy Family History Mother Cancer breast Grandmother Cancer breast Social History (Updated 07/10/23 @ 13:41 by Angi Gonzalez) Smoking Status: Current some day smoker second hand exposure: Yes alcohol intake: never substance use type: marijuana current occupational status: other Travel in the last 8 weeks: None household members: none housing: house number of children: 4 current occupational exposures/hazards: No caffeine: Yes
== END 2023-08-17 23:59 | disposition home or self-care (01) ==
LOC: SC.PAIN 13:19
PROVIDERS: PCP Nurse Practitioner Family; Visit Provider Nurse Anesthetist, Certified Registered
DX: M51.16 Intervertebral disc disorders with radiculopathy, lumbar region (principal); M51.26 Other intervertebral disc displacement, lumbar region; M47.26 Other spondylosis with radiculopathy, lumbar region
CPT/HCPCS: 99212; G0463

== ENCOUNTER 2023-09-04 11:31 | Day surgery (SDC) | payer OTHER, SELFPAY ==
[2023-09-04 11:43] VITALS: BP 138/90; PULSE 78; RESP 18; TEMP 36.4; O2SAT 95; BMI 27.2
[2023-09-04 12:00] VITALS: BP 146/78; PULSE 78; RESP 18; O2SAT 97
[2023-09-04] MEDS: methylPREDNISolone ACETATE 80MG/ML VIAL 80 MG (12:00)
[2023-09-04 12:03] VITALS: BP 146/78; PULSE 78; RESP 18; O2SAT 97
[2023-09-04 12:07] VITALS: BP 136/76; PULSE 73; RESP 18; O2SAT 100
--- NOTE | 2023-09-04 12:09 | EXP.PAIN.PRO ---
Procedure Date: 09/04/23 Time: 11:50 Anesthesiologist:: Edgardo Guerra CRNA Complications:: None Pre-procedure Diagnosis:: Degenerative disc lumbar spine multilevels. Lumbar radiculopathy. Post-procedure Diagnosis:: Same Indications for Procedure:: This patient is a pleasant 57-year-old female comes our clinic today for a lumbar epidural steroid injection at L4-5 level. Patient had minimal relief from previous left transforaminal epidural steroid injection at the L3-4 and 4 5 level. This was on 07/03/2023. She reports ports low back pain as well as bilateral hip and leg radicular symptoms. She rates her pain 7/10. Procedure Details:: Procedure: Lumbar epidural steroid injection under fluoroscopy Informed consent was obtained and the risks and benefits of the procedure were explained to the patient. The patient was taken to the procedure room and noninvasive monitors placed, including noninvasive blood pressure cuff and pulse oximeter. The back was viewed using C-arm Fluoroscopy and prepped using Chloraprep as a cleansing solution and the L4-L5 interspace was palpated. Skin and subcutaneous tissues were anesthetized using lidocaine 1.5% and a 25-gauge needle. After this, an 18-gauge Touhy epidural needle was placed into the L4-L5 interspace and advanced using fluoroscopic guidance and loss of resistance to air until the epidural space was encountered. After confirmation of needle placement in the epidural space, with dye, a solution containing normal saline, 3 mL and Depo-Medrol 80 mg were incrementally injected into the lumbar epidural space. The patient tolerated the procedure well with no complications. The patient was observed in the Pain Clinic and then discharged home neurologically intact. Plan and Disposition:: Patient was discharged without incident.
== END 2023-09-04 12:08 | disposition home or self-care (01) ==
LOC: SC.PAINP 11:32
PROVIDERS: PCP Nurse Practitioner Family; Visit Provider Nurse Anesthetist, Certified Registered
DX: M51.16 Intervertebral disc disorders with radiculopathy, lumbar region (principal)
CPT/HCPCS: 62323; J1010

== ENCOUNTER 2023-09-27 10:14 | Outpatient (POV) | payer OTHER, SELFPAY ==
[2023-09-27 10:24] VITALS: BP 130/77; PULSE 105; RESP 16; O2SAT 97; BMI 25.9
--- NOTE | 2023-09-27 10:33 | A.OFFVIS_ITS ---
[facility] Disclaimer: The information contained in this section may have been updated after the patient was seen, as this information can be updated by other users. Medical History (Updated 09/27/23 @ 10:35 by Brielle Carvajal APRN) Lung nodule Carpal tunnel syndrome Insomnia Major depressive disorder Kidney stones Hepatitis Depression CVA (cerebral vascular accident) COPD (chronic obstructive pulmonary disease) GERD (gastroesophageal reflux disease) Hyperlipidemia LDL goal <100 Hypertension Anxiety Surgical History Hx of tubal ligation Hx of tonsillectomy H/O total hysterectomy History of appendectomy Family History Mother Cancer breast Grandmother Cancer breast Social History Smoking Status: Current some day smoker second hand exposure: Yes alcohol intake: never substance use type: marijuana current occupational status: disabled Travel in the last 8 weeks: None household members: none housing: house number of children: 4 current occupational exposures/hazards: No caffeine: Yes PM Subjective & Objective Subjective Subjective:: Patient is a pleasant 57-year-old female who presents today for follow-up of lumbar epidural steroid injection L4-L5 on 09/04/2023. Today she rates her pain a 9 out of 10. Patient denies any new trauma or injury. She states that it did help some however it still was not substantial and at that she would want to continue DDD injections. The pain just goes back very quickly due to the ongoing temporary relief. Patient does states she continues to have her chronic pain throughout her neck and low back with radiating symptoms down into her legs. Patient is interested in any help we may be able to provide for additio nal improvement. Patient states the pain is severe and interferes with her ability perform activities of daily living such as cooking and cleaning. Patient in the past was deemed an appropriate candidate of the spinal cord stimulator trial however was denied by insurance. Patient is on Suboxone therapy and gabapentin from an outside provider. She denies any side effects from this medication. Her Nigel has been reviewed and is appropriate. Review of Systems: General: No recent weight changes, no fever, no sleep disturbances Respiratory: No cough, no shortness of air, no recurring pulmonary infections Cardiovascular/peripheral vascular: No chest pain, no palpitations, no edema, no shortness of breath Gastrointestinal: No new onset incontinence, normal bowel movements reported Genitourinary: No new onset incontinence Musculoskeletal: Neck pain, low back pain, left leg pain Psychiatric: [Normal mood/affect] Neurological: [Denies weakness in extremities], [denies balance issues] Pain at rest (0-10 scale): 9 Objective Objective:: Physical Exam: General: Alert and oriented x3, no acute distress, pleasant and cooperative Lungs: Respirations even and unlabored, symmetrical chest expansion Eyes: PERRL Musculoskeletal: Flexion and extension of lumbar [spine] somewhat guarded secondary to pain, [antalgic gait noted] Neurological: Speech clear, no gross sensory deficit Has patient had previous pain injection?: Yes Percent improvement in pain since last injection: 40 Conservative treatment options previously tried: Home exercise plan Length of treatment: Longer than 6 weeks and Prescription medications Length of treatment: Longer than 6 weeks Meds Home Medications and Allergies Home Medications Medication Instructions Recorded Confirmed Type multivitamin 1 tab PO DAILY SUPPLIMENT 08/21/22 09/27/23 History estradiol 2 mg tablet See Rx Instructions .Route 05/10/23 09/27/23 Rx .COMPLEX SUPPLIMENT #90 tabs buprenorphine 8 mg-naloxone 2 mg 1 tab sublingual DIRECTED 06/13/23 09/27/23 History sublingual tablet sofosbuvir 400 mg-velpatasvir 100 1 tab PO DIRECTED 06/13/23 09/27/23 History mg tablet lisinopril 10 mg tablet See Rx Instructions .Route 07/05/23 09/27/23 Rx .COMPLEX #90 tabs desvenlafaxine succinate 50 mg See Rx Instructions .Route 08/28/23 09/27/23 Rx tablet,extended release 24 hr .COMPLEX Depression #90 tabs mirtazapine 15 mg tablet 15 mg PO QHS . #90 tabs 08/28/23 09/27/23 Rx albuterol sulfate 90 mcg/actuation See Rx Instructions .Route 09/05/23 09/27/23 Rx breath activated powder inhaler .COMPLEX #1 ea (ProAir RespiClick) gabapentin 600 mg tablet See Rx Instructions .Route 09/05/23 09/27/23 Rx .COMPLEX #90 tabs atorvastatin 10 mg tablet See Rx Instructions .Route 09/06/23 09/27/23 Rx .COMPLEX #30 tabs fluticasone 100 mcg-salmeterol 50 1 inh inhalation BID 90 days #180 09/19/23 09/27/23 Rx mcg/dose blistr powdr for ea inhalation (Advair Diskus) ergocalciferol (vitamin D2) 1,250 See Rx Instructions .Route 09/25/23 09/27/23 Rx mcg (50,000 unit) capsule (Vitamin .COMPLEX #20 caps D2) New Prescriptions to Start Prescriptions: Allergies Allergy/AdvReac Type Severity Reaction Status Date / Time hydrocodone AdvReac Nausea Verified 09/19/23 12:56 Assessment and Plan *Assessment and plan (1) Lumbar spondylosis: Status: Acute Category: Medical Code(s): M47.816 - Spondylosis without myelopathy or radiculopathy, lumbar region (2) Facet arthropathy: Status: Acute Category: Medical Code(s): M47.819 - Spondylosis without myelopathy or radiculopathy, site unspecified (3) Cervical radiculopathy due to degenerative joint disease of spine: Status: Acute Category: Medical Code(s): M47.22 - Other spondylosis with radiculopathy, cervical region (4) Lumbar disc disease with radiculopathy: Status: Chronic Category: Medical Code(s): M51.16 - Intervertebral disc disorders with radiculopathy, lumbar region (5) Fibromyalgia: Status: Chronic Category: Medical Code(s): M79.7 - Fibromyalgia (6) Chronic pain: Status: Chronic Qualifiers: Chronic pain type: chronic pain syndrome Qualified Code(s): G89.4 - Chronic pain syndrome Category: Medical Code(s): G89.29 - Other chronic pain (7) Lower back pain: Status: Acute Qualifiers: Chronicity: chronic Back pain laterality: bilateral Sciatica presence: without sciatica Qualified Code(s): M54.50 - Low back pain, unspecified; G89.29 - Other chronic pain Category: Medical Code(s): M54.50 - Low back pain, unspecified Plan Patient continues to experience significant pain throughout her neck and low back with radiating symptoms. I have counseled the patient unfortunately due to insurance denying the spinal cord stimulator that we could always try the intrathecal pain pump trial option. Risk and benefits and educational handouts were given to the patient and she would like to proceed forward with this plan of care. I have counseled the patient that we would plan on using bupivacaine as the intrathecal medication. Patient is agreeable to this. Due to the fact that her last psych eval was done in 2021 we will resubmit for the psychological evaluation and if she is deemed an appropriate candidate we will proceed forward with a trial at a later date. Patient has tried and failed conservative therapy including oral medications, heat and ice, topicals, prior physical therapy, continued at home stretching exercise between injections and injection therapy. Patient will return to clinic in 1 month following her psych eval for reevaluation of symptoms and plan of care. Patient has been instructed to contact the clinic with any concerns before the next appointment. Dr. Lu has reviewed this note and agrees with this plan of care. This note was dictated using voice recognition software and make contain errors or omissions.
== END 2023-09-27 23:59 | disposition home or self-care (01) ==
LOC: SC.PAIN 10:15
PROVIDERS: PCP Nurse Practitioner Family; Visit Provider Nurse Practitioner Family
DX: M47.816 Spondylosis without myelopathy or radiculopathy, lumbar region (principal); M47.22 Other spondylosis with radiculopathy, cervical region; M51.16 Intervertebral disc disorders with radiculopathy, lumbar region; M79.7 Fibromyalgia; G89.4 Chronic pain syndrome; M54.50 Low back pain, unspecified; G89.29 Other chronic pain; Z79.899 Other long term (current) drug therapy; Z73.89 Other problems related to life management difficulty; F12.90 Cannabis use, unspecified, uncomplicated
CPT/HCPCS: 99212; G0463

== ENCOUNTER 2023-12-13 13:28 | Outpatient (POV) | payer OTHER, SELFPAY ==
[2023-12-13 13:39] VITALS: BP 139/77; PULSE 83; RESP 16; O2SAT 97; BMI 26.2
--- NOTE | 2023-12-13 13:59 | EXP.PAIN.SOA ---
[facility] Disclaimer: The information contained in this section may have been updated after the patient was seen, as this information can be updated by other users. Medical History Lung nodule Carpal tunnel syndrome Insomnia Major depressive disorder Kidney stones Hepatitis Depression CVA (cerebral vascular accident) COPD (chronic obstructive pulmonary disease) GERD (gastroesophageal reflux disease) Hyperlipidemia LDL goal <100 Hypertension Anxiety Surgical History Hx of tubal ligation Hx of tonsillectomy H/O total hysterectomy PHANIH BSO in 2006 History of appendectomy Family History Mother Cancer breast Grandmother Cancer breast Social History Smoking Status: Current some day smoker second hand exposure: Yes alcohol intake: never substance use type: marijuana current occupational status: other Travel in the last 8 weeks: None household members: none housing: house number of children: 4 current occupational exposures/hazards: No caffeine: Yes PM Subjective & Objective Subjective Subjective:: Patient is a pleasant 57-year-old female who presents today for follow-up of psychological evaluation. Today she rates her pain a 9 out of 10. She denies any new trauma or injury. She does states she continues to have chronic pain throughout her back that does interfere with her ability perform activities of daily living such as cooking and cleaning. Patient does state that she is reviewed overall the information on the intrathecal pain pump trial and she would like to proceed forward with this plan of care. Patient is on Suboxone therapy and gabapentin from outside providers. Her Nigel has been reviewed and is appropriate. Review of Systems: General: No recent weight changes, no fever, no sleep disturbances Respiratory: No cough, no shortness of air, no recurring pulmonary infections Cardiovascular/peripheral vascular: No chest pain, no palpitations, no edema, no shortness of breath Gastrointestinal: No new onset incontinence, normal bowel movements reported Genitourinary: No new onset incontinence Musculoskeletal: Low back pain Psychiatric: [Normal mood/affect] Neurological: [Denies weakness in extremities], [denies balance issues] Pain at rest (0-10 scale): 9 Objective Objective:: Physical Exam: General: Alert and oriented x3, no acute distress, pleasant and cooperative Lungs: Respirations even and unlabored, symmetrical chest expansion Eyes: PERRL Musculoskeletal: Flexion and extension of lumbar [spine] somewhat guarded secondary to pain, [antalgic gait noted] Neurological: Speech clear, no gross sensory deficit Has patient had previous pain injection?: No Conservative treatment options previously tried: Home exercise plan Length of treatment: Longer than 12 weeks Meds Home Medications and Allergies Home Medications ?Medication ?Instructions ?Recorded ?Confirmed ?Type multivitamin 1 tab PO DAILY SUPPLIMENT 08/21/22 12/13/23 History buprenorphine 8 mg-naloxone 2 mg 1 tab sublingual DIRECTED 06/13/23 12/13/23 History sublingual tablet desvenlafaxine succinate 50 mg See Rx Instructions .Route 08/28/23 12/13/23 Rx tablet,extended release 24 hr .COMPLEX Depression #90 tabs mirtazapine 15 mg tablet 15 mg PO QHS . #90 tabs 08/28/23 12/13/23 Rx fluticasone 100 mcg-salmeterol 50 1 inh inhalation BID 90 days #180 09/19/23 12/13/23 Rx mcg/dose blistr powdr for ea inhalation (Advair Diskus) ergocalciferol (vitamin D2) 1,250 See Rx Instructions .Route 09/25/23 12/13/23 Rx mcg (50,000 unit) capsule (Vitamin .COMPLEX #20 caps D2) estradiol 2 mg tablet 2 mg PO .COMPLEX SUPPLIMENT 10/02/23 12/13/23 History gabapentin 600 mg tablet See Rx Instructions .Route 10/02/23 12/13/23 Rx .COMPLEX #90 tabs atorvastatin 10 mg tablet See Rx Instructions .Route 10/31/23 12/13/23 Rx .COMPLEX #90 tabs albuterol sulfate 90 mcg/actuation See Rx Instructions .Route 11/28/23 12/13/23 Rx breath activated powder inhaler .COMPLEX #1 ea (ProAir RespiClick) lisinopril 10 mg tablet See Rx Instructions .Route 11/28/23 12/13/23 Rx .COMPLEX #90 tabs New Prescriptions to Start Prescriptions: Allergies Allergy/AdvReac Type Severity Reaction Status Date / Time hydrocodone AdvReac Nausea Verified 12/06/23 14:03 Assessment and Plan *Assessment and plan (1) Lower back pain: Status: Acute Qualifiers: Chronicity: chronic Back pain laterality: bilateral Sciatica presence: without sciatica Qualified Code(s): M54.50 - Low back pain, unspecified; G89.29 - Other chronic pain Category: Medical Code(s): M54.50 - Low back pain, unspecified (2) Chronic pain syndrome: Status: Acute Category: Medical Code(s): G89.4 - Chronic pain syndrome Plan Patient was found to be an appropriate candidate for the intrathecal pain pump trial. I have reviewed over the risk and benefits of this procedure and she would like to proceed forward with this plan of care. Patient was counseled that we would be doing a bupivacaine pain pump trial and she acknowledges understanding and agrees with this plan of care. Patient has tried and failed conservative therapy including oral medication, heat and ice, topicals, physical therapy, continued at home stretching exercise for longer than 12 weeks. Patient will be submitted for a intrathecal pain pump trial with bupivacaine under fluoroscopy. Patient has been instructed to contact the clinic with any concerns before the next appointment. Dr. Lu has reviewed this note and agrees with this plan of care. This note was dictated using voice recognition software and make contain errors or omissions. All injections are used with Lidocaine or Bupivacaine and Depo Medrol.
== END 2023-12-13 23:59 | disposition home or self-care (01) ==
LOC: SC.PAIN 13:29
PROVIDERS: PCP Nurse Practitioner Family; Visit Provider Nurse Practitioner Family
DX: M54.50 Low back pain, unspecified (principal); G89.4 Chronic pain syndrome; F12.90 Cannabis use, unspecified, uncomplicated; Z72.0 Tobacco use; Z73.89 Other problems related to life management difficulty
CPT/HCPCS: 99212; G0463

== ENCOUNTER 2024-01-29 11:24 | Outpatient (CLI) | payer OTHER, SELFPAY ==
[2024-01-29 19:15] LABS: Basophils # 0.1 K/mm3 (0-0.2); Basophils % 0.7 % (0.1-2.0); Eosinophils # 0.1 K/mm3 (0.0-0.4); Eosinophils % 1.5 % (0.1-12.0); Hematocrit 43.1 % (37.0-47.0); Lymphocytes % 23.6 % (10-50); Mean Corpuscular HGB Conc 34.7 g/dL (31.8-35.4); Mean Corpuscular Hemoglobin 31.1 pg (27.0-31.2); Mean Corpuscular Volume 89.6 fl (81-99); Mean Platelet Volume 8.8 fl (7.4-10.4); Monocytes # 0.5 K/mm3 (0.1-1.0); Monocytes % 6.5 % (1.7-9.3); Neutrophils # 5.6 K/mm3 (1.8-7.8); Neutrophils % 67.6 % (37.0-80.0); Platelet Count 323 K/mm3 (142-424); Red Blood Count 4.82 M/mm3 (4.20-5.40); White Blood Count 8.3 K/mm3 (4.8-10.8)
[2024-01-29 19:51] LABS: Alanine Aminotransferase 17 U/L (12-78); Albumin Level 4.1 g/dl (3.5-5.0); Albumin/Globulin Ratio 1.6 (1.1-1.8); Alkaline Phosphatase 71 U/L (38-126); Anion Gap 13.3 mEq/L (5-15); Aspartate Amino Transferase 25 U/L (14-36); Bilirubin,Total 0.6 mg/dl (0.2-1.3); Blood Urea Nitrogen 13 mg/dl (7-17); Calcium 9.1 mg/dl (8.4-10.2); Carbon Dioxide 25 mmol/L (22.0-30.0); Chloride 105 mmol/L (98-107); Chol/HDL Ratio 3.1 (1-3.5); Cholesterol 170 mg/dl (140-200); Estimated Glomerular Filt Rate 74 ml/min (>60); GFR (African American) 90 ML/MIN (>60); Globulin 2.6 g/dL (1.3-3.2); Glucose 81 mg/dl (74-100); HDL Cholesterol 55 mg/dl (40-60); Potassium 4.3 mmoL/L (3.5-5.1); Sodium 139 mmol/L (136-145); Total Protein,Serum 6.7 g/dl (6.3-8.2); Triglycerides 200 mg/dl (30-150); VLDL Cholesterol 40 mg/dL (0-40)
[2024-01-29 20:02] LABS: Direct LDL Cholesterol 94.37 mg/dL (100-129)
[2024-01-29 20:06] LABS: 25-OH Vitamin D, Total 66.1 ng/mL (30-100)
[2024-01-29 20:21] LABS: Thyroid Stimulating Hormone 3.76 uIU/mL (0.465-4.68)
== END 2024-01-29 23:59 | disposition home or self-care (01) ==
LOC: LAB.DROPOF 01-30 10:52
PROVIDERS: PCP Nurse Practitioner Family; Visit Provider Nurse Practitioner Family
DX: B18.2 Chronic viral hepatitis C (principal); G89.4 Chronic pain syndrome; E55.9 Vitamin D deficiency, unspecified
CPT/HCPCS: 80050; 80053; 80061; 82306; 84443; 85025; 87522

== ENCOUNTER 2024-02-26 11:14 | Emergency (ER) | payer OTHER, SELFPAY ==
[2024-02-26 11:25] VITALS: BP 145/95; PULSE 63; RESP 22; TEMP 36.4; O2SAT 96; BMI 24.3
--- NOTE | 2024-02-26 11:28 | EXP.UTC ---
Discharge Plan Disposition Patient Disposition: Home, Self-Care Condition: Good Prescriptions Prescriptions: New azithromycin [Zithromax] 250 mg tablet 250 mg PO UD DOSE PK Qty: 6 0RF Rx Instructions: Take two (2) tablets today, then one (1) tablet days #2 thru #5 benzonatate 100 mg capsule 100 mg PO TIDP PRN (Reason: Cough) Qty: 30 0RF methylprednisolone 4 mg Tablets,Dose Pack 4 mg PO DIRECTED 6 Days Qty: 21 0RF Rx Instructions: Take 1 pack as directed for 6 days No Action gabapentin 600 mg tablet 600 mg PO TID Patient Comments: TAKE ONE TABLET BY MOUTH THREE TIMES DAILY FOR PAIN atorvastatin 10 mg tablet 10 mg PO HS Patient Comments: TAKE ONE TABLET BY MOUTH DAILY AT BEDTIME FOR elevated cholesterol lisinopril 10 mg tablet 10 mg PO DAILY Patient Comments: TAKE 1 TABLET BY MOUTH ONCE DAILY estradiol 2 mg tablet 2 mg PO DAILY Patient Comments: for SUPPLIMENT; TAKE 1 TABLET BY MOUTH EVERY DAY mirtazapine 15 mg tablet 15 mg PO HS Patient Comments: TAKE 1 TABLET(15 MG) orally every day at bedtime for. ergocalciferol (vitamin D2) [Vitamin D2] 1,250 mcg (50,000 unit) capsule 1,250 mcg PO WEEKLY Patient Comments: TAKE ONE CAPSULE BY MOUTH ONCE WEEKLY fluticasone propion-salmeterol [Advair Diskus] 100-50 mcg/dose blister with device 1 ea INHALATION BID Patient Comments: inhale 1 puff twice a day buprenorphine-naloxone 8-2 mg tablet, sublingual 1 tab SUBLINGUAL DAILY Patient Comments: Place 1&1/2 tablets under tongue once a day desvenlafaxine succinate 50 mg tablet extended release 24 hr 50 mg PO DAILY Patient Comments: for Depression; TAKE 1 TABLET BY MOUTH EVERY DAY ProAir RespiClick 90 mcg/actuation aerosol powdr breath activated 1 inh INHALATION Q6HP PRN (Reason: SOA) Patient Comments: inhale 1 puff every 4-6 hours As Needed for shortness of breath Referrals Follow up/Referrals: Navjot Curry APRN [Primary Care Provider] - See instructions Activity Restrictions/Add. Instructions Additional Instructions/Restrictions: Drink plenty of fluids. Take tylenol or ibuprofen for pain or fever. Take the medications as directed. Follow up with your regular doctor. GO TO THE ER FOR ANY WORSENING SYMPTOMS Clinical Impressions Clinical Impression: Sinusitis, Bronchitis Instructions Patient Instructions: Sinusitis, DI for Sinusitis Print Language Print Language: Malawian Discharge ED Provider: Emanuel Lofton [facility] General Stated complaint: head/chest congestion Time Seen by Provider: 02/26/24 11:27 Related Data Home Medications ?Medication ?Instructions ?Recorded ?Confirmed albuterol sulfate 90 mcg/actuation 1 inh inhalation Q6HP PRN SOA 02/26/24 02/26/24 breath activated powder inhaler (ProAir RespiClick) atorvastatin 10 mg tablet 10 mg PO HS 02/26/24 02/26/24 buprenorphine 8 mg-naloxone 2 mg 1 tab sublingual DAILY 02/26/24 02/26/24 sublingual tablet desvenlafaxine succinate 50 mg 50 mg PO DAILY 02/26/24 02/26/24 tablet,extended release 24 hr ergocalciferol (vitamin D2) 1,250 1,250 mcg PO WEEKLY 02/26/24 02/26/24 mcg (50,000 unit) capsule (Vitamin D2) estradiol 2 mg tablet 2 mg PO DAILY 02/26/24 02/26/24 fluticasone 100 mcg-salmeterol 50 1 ea inhalation BID 02/26/24 02/26/24 mcg/dose blistr powdr for inhalation (Advair Diskus) gabapentin 600 mg tablet 600 mg PO TID 02/26/24 02/26/24 lisinopril 10 mg tablet 10 mg PO DAILY 02/26/24 02/26/24 mirtazapine 15 mg tablet 15 mg PO HS 02/26/24 02/26/24 Previous Rx's ?Medication ?Instructions ?Recorded azithromycin 250 mg tablet 250 mg PO UD DOSE PK #6 tabs 02/26/24 (Zithromax) benzonatate 100 mg capsule 100 mg PO TIDP PRN Cough #30 caps 02/26/24 methylprednisolone 4 mg tablets in 4 mg PO DIRECTED 6 days #21 tabs 02/26/24 a dose pack Allergies Allergy/AdvReac Type Severity Reaction Status Date / Time hydrocodone AdvReac Nausea Verified 02/25/24 10:[address] [facility] Disclaimer: The information contained in this section may have been updated after the patient was seen, as this information can be updated by other users. Medical History Lung nodule Carpal tunnel syndrome Insomnia Major depressive disorder Kidney stones Hepatitis Depression CVA (cerebral vascular accident) COPD (chronic obstructive pulmonary disease) GERD (gastroesophageal reflux disease) Hyperlipidemia LDL goal <100 Hypertension Anxiety Surgical History Hx of tubal ligation Hx of tonsillectomy H/O total hysterectomy LAVH, BSO in 2006 History of appendectomy Family History Mother Cancer breast Grandmother Cancer breast Social History Smoking Status: Current some day smoker second hand exposure: Yes alcohol intake: never substance use type: marijuana current occupational status: other Travel in the last 8 weeks: None household members: none housing: house number of children: 4 current occupational exposures/hazards: No caffeine: Yes ROS Obtained: Yes All systems reviewed & no additional complaints except as documented Constitutional Constitutional: Reports poor appetite Eyes Eyes: Reports system reviewed and no additional complaints, except as documented ENT Ears, Nose, Mouth, and Throat: Reports as per HPI Cardiovascular Cardiovascular: Reports system reviewed and no additional complaints, except as documented and Denies chest pain Respiratory Respiratory: Denies shortness of breath, Denies chest congestion, Reports cough, Denies stridor and Denies wheezing Gastrointestinal Gastrointestingal: Reports system reviewed and no additional complaints, except as documented; Denies abdominal pain, diarrhea or vomiting Musculoskeletal Musculoskeletal: Reports system reviewed and no additional complaints, except as documented and Denies arthralgias Integumentary/Breasts Skin/Breast: Reports system reviewed and no additional complaints, except as documented and Denies rash Neurologic Neurologic: Denies paresthesias Allergic/Immunologic Allergic/Immunologic: Denies wheezing Physical Exam General General appearance: alert and in no apparent distress Eye Eye exam: Present normal appearance, PERRL and EOMI ENT ENT exam: Present mucous membranes moist and normal external ear exam Expanded ENT Exam External ear exam: Present normal external inspection TM/Canal exam: Bilateral TM: erythema and bulging Nose exam: Absent sinus tenderness Nasal speculum exam: Bilateral: normal Mouth exam: Present normal external inspection; Absent drooling Teeth exam: Present normal inspection Throat exam: Present tonsillar erythema and tonsillomegaly Neck Neck exam: Present normal inspection, full ROM and trachea midline; Absent tenderness, lymphadenopathy or thyromegaly Chest Chest inspection: Present normal inspection and symmetric chest wall rise; Absent tenderness or rash Respiratory Respiratory exam: Present normal lung sounds bilaterally; Absent respiratory distress, wheezes, stridor or accessory muscle use Cardiovascular Cardiovascular exam: Present regular rate, normal rhythm and normal heart sounds Abdominal Exam Abdominal exam: Present soft; Absent distention, tenderness, guarding, rebound or rigidity Extremities Exam Extremities exam: Present normal inspection, full ROM and normal capillary refill; Absent tenderness or calf tenderness Back Exam Back exam: Present normal inspection and full ROM; Absent tenderness Neurological Exam Neurological exam: Present alert and oriented X3 Psychiatric Psychiatric exam: Present normal affect and normal mood Skin Skin exam: Present warm, dry, intact and normal color Lymphatic Lymphatic Findings: no adenopathy Medical Decision Making Medical Records Medical records reviewed: No I reviewed the patient's medical records. Screening: Per USPSTF and CDC recommendations, given the prevalence of disease in our region, it is our hospital?s policy to screen for HIV and viral Hepatitis for all patients aged 18 and over and those with ongoing risk factors. Nigel Inquiry Pt receiving controlled substance: No Lab Data Lab results reviewed: Yes I reviewed the patient's lab results.
[2024-02-26 12:44] VITALS: BP 145/95; PULSE 63; RESP 22; TEMP 36.4; O2SAT 96
[2024-02-26 12:50] LABS: Coronavirus 19, PCR Not Detected (NotDetected); Influenza A, PCR Not Detected (NotDetected); Influenza B, PCR Not Detected (NotDetected)
== END 2024-02-26 12:49 | disposition home or self-care (01) ==
PROVIDERS: Emergency Provider Nurse Practitioner Family; PCP Nurse Practitioner Family
DX: J20.9 Acute bronchitis, unspecified (principal); F17.210 Nicotine dependence, cigarettes, uncomplicated
CPT/HCPCS: 87636; 99213; G0381

== ENCOUNTER 2024-04-24 13:41 | Outpatient (POV) | payer OTHER, SELFPAY ==
--- NOTE | 2024-04-24 14:07 | EXP.PAIN.SOA ---
[facility] Disclaimer: The information contained in this section may have been updated after the patient was seen, as this information can be updated by other users. Medical History Lung nodule Carpal tunnel syndrome Insomnia Major depressive disorder Kidney stones Hepatitis Depression CVA (cerebral vascular accident) COPD (chronic obstructive pulmonary disease) GERD (gastroesophageal reflux disease) Hyperlipidemia LDL goal <100 Hypertension Anxiety Surgical History Hx of tubal ligation Hx of tonsillectomy H/O total hysterectomy LAVH, BSO in 2006 History of appendectomy Family History Mother Cancer breast Grandmother Cancer breast Social History Smoking Status: Current some day smoker second hand exposure: Yes alcohol intake: never substance use type: marijuana current occupational status: other Travel in the last 8 weeks: None household members: none housing: house number of children: 4 current occupational exposures/hazards: No caffeine: Yes PM Subjective & Objective Subjective Subjective:: Patient is a pleasant 58-year-old female who presents today for worsening pain. Today she rates her pain a 9 out of 10. Patient states is still the same chronic pain that does go down into her left leg. Patient denies any new falls or injuries. At our last visit we had tried to submit for the intrathecal pain pump trial with bupivacaine however she states that she did get a letter in the mail saying that it was denied and that she could do injections still. Patient has tried multiple injections however has only gotten typically temporary relief and has not been as beneficial. Patient has been prescribed compounded cream from our office and Suboxone therapy and gabapentin from an outside provider. She denies any side effects however is requesting refills on her compounded cream. Her Nigel has been reviewed and is appropriate. Review of Systems: General: No recent weight changes, no fever, no sleep disturbances Respiratory: No cough, no shortness of air, no recurring pulmonary infections Cardiovascular/peripheral vascular: No chest pain, no palpitations, no edema, no shortness of breath Gastrointestinal: No new onset incontinence, normal bowel movements reported Genitourinary: No new onset incontinence Musculoskeletal: Low back pain, left leg pain Psychiatric: [Normal mood/affect] Neurological: [Denies weakness in extremities], [denies balance issues] Pain at rest (0-10 scale): 9 Objective Objective:: Physical Exam: General: Alert and oriented x3, no acute distress, pleasant and cooperative Lungs: Respirations even and unlabored, symmetrical chest expansion Eyes: PERRL Musculoskeletal: Flexion and extension of lumbar [spine] somewhat guarded secondary to pain, [antalgic gait noted] positive left leg raise Neurological: Speech clear, no gross sensory deficit Has patient had previous pain injection?: No Conservative treatment options previously tried: Home exercise plan Length of treatment: Longer than 12 weeks Meds Home Medications and Allergies Home Medications ?Medication ?Instructions ?Recorded ?Confirmed ?Type albuterol sulfate 90 mcg/actuation 1 inh inhalation Q6HP PRN SOA 02/26/24 04/01/24 History breath activated powder inhaler (ProAir RespiClick) atorvastatin 10 mg tablet 10 mg PO HS 02/26/24 04/01/24 History buprenorphine 8 mg-naloxone 2 mg 1 tab sublingual DAILY 02/26/24 04/01/24 History sublingual tablet desvenlafaxine succinate 50 mg 50 mg PO DAILY 02/26/24 04/01/24 History tablet,extended release 24 hr ergocalciferol (vitamin D2) 1,250 1,250 mcg PO WEEKLY 02/26/24 04/01/24 History mcg (50,000 unit) capsule (Vitamin D2) estradiol 2 mg tablet 2 mg PO DAILY 02/26/24 04/01/24 History lisinopril 10 mg tablet 10 mg PO DAILY 02/26/24 04/01/24 History mirtazapine 15 mg tablet 15 mg PO HS 02/26/24 04/01/24 History fluticasone 250 mcg-salmeterol 50 1 inh inhalation BID 90 days #180 03/21/24 04/01/24 Rx mcg/dose blistr powdr for ea inhalation (Advair Diskus) gabapentin 600 mg tablet 600 mg PO TID #90 tabs 04/01/24 04/01/24 Rx New Prescriptions to Start Prescriptions: Allergies Allergy/AdvReac Type Severity Reaction Status Date / Time hydrocodone AdvReac Nausea Verified 04/01/24 09:52 Assessment and Plan *Assessment and plan (1) Chronic pain syndrome: Status: Acute Category: Medical Code(s): G89.4 - Chronic pain syndrome (2) Lower back pain: Status: Acute Qualifiers: Chronicity: chronic Back pain laterality: bilateral Sciatica presence: without sciatica Qualified Code(s): M54.50 - Low back pain, unspecified; G89.29 - Other chronic pain Category: Medical Code(s): M54.50 - Low back pain, unspecified (3) Left leg pain: Status: Acute Category: Medical Code(s): M79.605 - Pain in left leg Plan Patient continues to experience significant pain throughout her low back with radiating symptoms down her entire left extremity. I did discuss with patient that I will send her for referral to orthospine for evaluation of her low back and left leg symptoms. Patient will also be sent in a 2-week supply of meloxicam 15 mg daily. Patient denies any heart or kidney issues. I did dianetic counselor her to discontinue all other NSAIDs while taking this medication and to take it with food to minimize GI upset. Patient acknowledges understanding. Patient will return to clinic in 2 weeks for reevaluation of symptoms and plan of care. Patient has been instructed to contact the clinic with any concerns before the next appointment. Dr. Lu has reviewed this note and agrees with this plan of care. This note was dictated using voice recognition software and make contain errors or omissions. All injections are used with Lidocaine, Bupivacaine and Depo Medrol. Occasionally urine drug screen is needed to verify patient's compliance with our office pain contract. This is ordered based off specific treatments related to chronic pain with the potential to abuse certain medications.
[2024-04-24 14:37] VITALS: BP 148/78; PULSE 89; RESP 18; O2SAT 97; BMI 25.7
== END 2024-04-24 23:59 | disposition home or self-care (01) ==
PROVIDERS: PCP Nurse Practitioner Family; Visit Provider Nurse Practitioner Family
DX: G89.4 Chronic pain syndrome (principal); M54.50 Low back pain, unspecified; M79.605 Pain in left leg; F17.200 Nicotine dependence, unspecified, uncomplicated
CPT/HCPCS: 99212; G0463

== ENCOUNTER 2024-05-02 10:53 | Outpatient (CLI) | payer OTHER, SELFPAY ==
--- NOTE | 2024-05-02 10:55 | XR_ITS ---
FINAL REPORT CLINICAL HISTORY: lbp numbness, tingling, pain radiating down Left leg COMPARISON: 06/17/2021 FINDINGS: No fracture is identified. There is moderate degenerative change in the lower lumbar spine, similar to previous. Alignment is normal. IMPRESSION: Stable lower lumbar degenerative changes. Reviewed, Interpreted and Dictated by William Messina MD Transcribed by Bruna Irwin Authenticated and . [facility]
== END 2024-05-02 23:59 | disposition home or self-care (01) ==
LOC: RAD 10:53
PROVIDERS: PCP Nurse Practitioner Family; Visit Provider Nurse Practitioner Family
DX: G89.4 Chronic pain syndrome (principal); M79.605 Pain in left leg; M54.50 Low back pain, unspecified
CPT/HCPCS: 72100

== ENCOUNTER 2024-05-19 08:42 | Outpatient (CLI) | payer OTHER, SELFPAY ==
--- NOTE | 2024-05-19 08:46 | MR_ITS ---
FINAL REPORT TECHNIQUE: Multiplanar MR without gadolinium enhancement CLINICAL HISTORY: LBP after stroke pain down bilateral legs COMPARISON: 06/17/2021 FINDINGS: Sagittal images show normal vertebral height. Alignment is normal. Discogenic endplate degenerative changes are once again noted, improved at the L4-5 level since the prior MRI of 2021. L1-2: There is a mild annular bulge without evidence of canal stenosis. L2-3: There is a mild annular bulge without evidence of canal stenosis. L3-4: There is a mild annular bulge without evidence of canal stenosis. L4-5: There is a mild to moderate bulge, with mild bilateral neural foraminal narrowing. L5-S1: No central canal stenosis, or focal protrusion. There is minimal facet arthropathy noted. IMPRESSION: Multilevel degenerative change, mild, without evidence of significant canal stenosis. Reviewed, Interpreted and Dictated by William Messina MD Transcribed by Marcia Quintero Authenticated and [facility]
== END 2024-05-19 23:59 | disposition home or self-care (01) ==
LOC: RAD 08:43
PROVIDERS: PCP Nurse Practitioner Family; Visit Provider Anesthesiology
DX: M54.50 Low back pain, unspecified (principal); M79.605 Pain in left leg; G89.4 Chronic pain syndrome
CPT/HCPCS: 72148

== ENCOUNTER 2024-05-21 13:58 | Outpatient (POV) | payer OTHER, SELFPAY ==
[2024-05-21 14:19] VITALS: BP 132/85; PULSE 94; RESP 16; O2SAT 94; BMI 25.3
--- NOTE | 2024-05-21 14:24 | A.OFFVIS_ITS ---
[facility] Disclaimer: The information contained in this section may have been updated after the patient was seen, as this information can be updated by other users. Medical History Lung nodule Carpal tunnel syndrome Insomnia Major depressive disorder Kidney stones Hepatitis Depression CVA (cerebral vascular accident) COPD (chronic obstructive pulmonary disease) GERD (gastroesophageal reflux disease) Hyperlipidemia LDL goal <100 Hypertension Anxiety Surgical History Hx of tubal ligation Hx of tonsillectomy H/O total hysterectomy LAVH, BSO in 2006 History of appendectomy Family History Mother Cancer breast Grandmother Cancer breast Social History Smoking Status: Current some day smoker second hand exposure: Yes alcohol intake: never substance use type: marijuana current occupational status: other Travel in the last 8 weeks: None household members: none housing: house number of children: 4 current occupational exposures/hazards: No caffeine: Yes PM Subjective & Objective Subjective Subjective:: Patient is a pleasant 58-year-old female who presents today for follow-up of her lumbar MRI and worsening pain. Patient does rate her pain a 9 out of 10. She denies any new falls or injuries. She states she continues to have the chronic low back pain that does radiate down the entire left extremity. She does state from our last visit she has been having a lot more leg cramps that is worse and causing increased pain and disability. Patient denies any other changes from her last appointment. Patient has tried multiple injections from our office and has gotten improvement however generally they are very temporary. Patient is prescribed compounded cream from our office, Suboxone therapy and gabapentin from an outside provider. Her Nigel has been reviewed and is appropriate. Review of Systems: General: No recent weight changes, no fever, no sleep disturbances Respiratory: No cough, no shortness of air, no recurring pulmonary infections Cardiovascular/peripheral vascular: No chest pain, no palpitations, no edema, no shortness of breath Gastrointestinal: No new onset incontinence, normal bowel movements reported Genitourinary: No new onset incontinence Musculoskeletal: Low back pain, left leg pain Psychiatric: [Normal mood/affect] Neurological: [Denies weakness in extremities], [denies balance issues] Pain at rest (0-10 scale): 9 Objective Objective:: Physical Exam: General: Alert and oriented x3, no acute distress, pleasant and cooperative Lungs: Respirations even and unlabored, symmetrical chest expansion Eyes: PERRL Musculoskeletal: Flexion and extension of lumbar [spine] somewhat guarded secondary to pain, [antalgic gait noted] Neurological: Speech clear, no gross sensory deficit FINDINGS: Sagittal images show normal vertebral height. Alignment is normal. Discogenic endplate degenerative changes are once again noted, improved at the L4-5 level since the prior MRI of 2021. L1-2: There is a mild annular bulge without evidence of canal stenosis. L2-3: There is a mild annular bulge without evidence of canal stenosis. L3-4: There is a mild annular bulge without evidence of canal stenosis. L4-5: There is a mild to moderate bulge, with mild bilateral neural foraminal narrowing. L5-S1: No central canal stenosis, or focal protrusion. There is minimal facet arthropathy noted. IMPRESSION: Multilevel degenerative change, mild, without evidence of significant canal stenosis. Reviewed, Interpreted and Dictated by William Messina MD Transcribed by Marcia Quintero Authenticated and [facility] Has patient had previous pain injection?: No Conservative treatment options previously tried: Home exercise plan Length of treatment: Longer than 12 weeks Meds Home Medications and Allergies Home Medications ?Medication ?Instructions ?Recorded ?Confirmed ?Type atorvastatin 10 mg tablet 10 mg PO HS 02/26/24 05/21/24 History buprenorphine 8 mg-naloxone 2 mg 1 tab sublingual DAILY 02/26/24 05/21/24 History sublingual tablet desvenlafaxine succinate 50 mg 50 mg PO DAILY 02/26/24 05/21/24 History tablet,extended release 24 hr ergocalciferol (vitamin D2) 1,250 1,250 mcg PO WEEKLY 02/26/24 05/21/24 History mcg (50,000 unit) capsule (Vitamin D2) estradiol 2 mg tablet 2 mg PO DAILY 02/26/24 05/21/24 History mirtazapine 15 mg tablet 15 mg PO HS 02/26/24 05/21/24 History fluticasone 250 mcg-salmeterol 50 1 inh inhalation BID 90 days #180 03/21/24 05/21/24 Rx mcg/dose blistr powdr for ea inhalation (Advair Diskus) gabapentin 600 mg tablet 600 mg PO TID #90 tabs 04/01/24 05/21/24 Rx meloxicam 15 mg tablet 15 mg PO DAILY #14 tabs 04/24/24 05/21/24 Rx albuterol sulfate 90 mcg/actuation See Rx Instructions .Route 05/15/24 05/21/24 Rx breath activated powder inhaler .COMPLEX #1 ea (ProAir RespiClick) lisinopril 10 mg tablet See Rx Instructions .Route 05/15/24 05/21/24 Rx .COMPLEX #90 tabs New Prescriptions to Start Prescriptions: Allergies Allergy/AdvReac Type Severity Reaction Status Date / Time hydrocodone AdvReac Nausea Verified 04/01/24 09:52 Assessment and Plan *Assessment and plan (1) Chronic pain syndrome: Status: Acute Category: Medical Code(s): G89.4 - Chronic pain syndrome (2) Left leg pain: Status: Acute Category: Medical Code(s): M79.605 - Pain in left leg (3) Lower back pain: Status: Acute Qualifiers: Chronicity: chronic Back pain laterality: bilateral Sciatica presence: without sciatica Qualified Code(s): M54.50 - Low back pain, unspecified; G89.29 - Other chronic pain Category: Medical Code(s): M54.50 - Low back pain, unspecified (4) Lumbar disc disease with radiculopathy: Status: Chronic Category: Medical Code(s): M51.16 - Intervertebral disc disorders with radiculopathy, lumbar region Plan Patient continues to have chronic pain throughout her low back with radiating symptoms down into her left lower extremity. I did review over her most recent lumbar MRI. I do believe the patient would still very much benefit from a intrathecal pain pump with bupivacaine or a spinal cord stimulator. Patient will be sent to both orthopedics and neurosurgery for surgical evaluation of her chronic back pain and left leg pain. I have counseled the patient that we will follow-up in 1 month following this and that if she is not a candidate for surgical intervention we will still proceed forward with submitting for the pump or spinal cord stimulator options. Patient agrees with this plan of care. I will send in a 2-week supply of ropinirole 0.25 mg at bedtime for the increased leg cramps. Patient was counseled to call our office if this medication does help and she would like additional refills between now and her next appointment. Patient agrees with this plan of care. Patient has been instructed to contact the clinic with any concerns before the next appointment. Dr. Lu has reviewed this note and agrees with this plan of care. This note was dictated using voice recognition software and make contain errors or omissions. All injections are used with Lidocaine, Bupivacaine and Depo Medrol. Occasionally urine drug screen is needed to verify patient's compliance with our office pain contract. This is ordered based off specific treatments related to chronic pain with the potential to abuse certain medications.
== END 2024-05-21 23:59 | disposition home or self-care (01) ==
PROVIDERS: PCP Nurse Practitioner Family; Visit Provider Nurse Practitioner Family
DX: G89.4 Chronic pain syndrome (principal); M79.605 Pain in left leg; M54.50 Low back pain, unspecified; M51.16 Intervertebral disc disorders with radiculopathy, lumbar region
CPT/HCPCS: 99212; G0463

== ENCOUNTER 2024-06-20 14:06 | Outpatient (POV) | payer OTHER, SELFPAY ==
[2024-06-20 14:15] VITALS: BP 141/101; PULSE 94; RESP 16; O2SAT 99; BMI 26.5
--- NOTE | 2024-06-20 14:59 | EXP.PAIN.SOA ---
[facility] Disclaimer: The information contained in this section may have been updated after the patient was seen, as this information can be updated by other users. Medical History Lung nodule Carpal tunnel syndrome Insomnia Major depressive disorder Kidney stones Hepatitis Depression CVA (cerebral vascular accident) COPD (chronic obstructive pulmonary disease) GERD (gastroesophageal reflux disease) Hyperlipidemia LDL goal <100 Hypertension Anxiety Surgical History Hx of tubal ligation Hx of tonsillectomy H/O total hysterectomy LAVH, BSO in 2006 History of appendectomy Family History Mother Cancer breast Grandmother Cancer breast Social History Smoking Status: Current some day smoker second hand exposure: Yes alcohol intake: never substance use type: marijuana current occupational status: other Travel in the last 8 weeks: None household members: none housing: house number of children: 4 current occupational exposures/hazards: No caffeine: Yes PM Subjective & Objective Subjective Subjective:: Patient is a pleasant 58-year-old female who presents today for worsening low back and left leg pain. She rates it a 9 out of 10. Patient does state that she went to [place] over this past weekend and ended up falling down about 16 state years. Patient does state that she is bruised all along her bilateral legs and buttocks on the left side. Patient does state the pain has improved however is still very tender. Patient does state that she has continued to use her compounded cream for additional improvement in these areas. Patient is prescribed Suboxone therapy and gabapentin from an outside provider. Patient at her last visit did get sent in a 2-week dose of ropinirole 0.25 mg at bedtime. She states she has not had any side effects but did not immediately notice a huge improvement. She is asking if we can make additional adjustment to this. Her Nigel has been reviewed and is appropriate. Review of Systems: General: No recent weight changes, no fever, no sleep disturbances Respiratory: No cough, no shortness of air, no recurring pulmonary infections Cardiovascular/peripheral vascular: No chest pain, no palpitations, no edema, no shortness of breath Gastrointestinal: No new onset incontinence, normal bowel movements reported Genitourinary: No new onset incontinence Musculoskeletal: Low back pain, left buttocks pain, left leg pain Psychiatric: [Normal mood/affect] Neurological: [Denies weakness in extremities], [denies balance issues] Pain at rest (0-10 scale): 9 Objective Objective:: Physical Exam: General: Alert and oriented x3, no acute distress, pleasant and cooperative Lungs: Respirations even and unlabored, symmetrical chest expansion Eyes: PERRL Musculoskeletal: Flexion and extension of lumbar [spine] somewhat guarded secondary to pain, [antalgic gait noted] Neurological: Speech clear, no gross sensory deficit Skin: Patient does have multiple bruises along her bilateral lower legs with mild swelling at her left malleolus and bruising along her left gluteus rekha Has patient had previous pain injection?: No Conservative treatment options previously tried: Home exercise plan Length of treatment: Longer than 12 weeks Meds Home Medications and Allergies Home Medications ?Medication ?Instructions ?Recorded ?Confirmed ?Type atorvastatin 10 mg tablet 10 mg PO HS 02/26/24 06/20/24 History buprenorphine 8 mg-naloxone 2 mg 1 tab sublingual DAILY 02/26/24 06/20/24 History sublingual tablet desvenlafaxine succinate 50 mg 50 mg PO DAILY 02/26/24 06/20/24 History tablet,extended release 24 hr ergocalciferol (vitamin D2) 1,250 1,250 mcg PO WEEKLY 02/26/24 06/20/24 History mcg (50,000 unit) capsule (Vitamin D2) estradiol 2 mg tablet 2 mg PO DAILY 02/26/24 06/20/24 History mirtazapine 15 mg tablet 15 mg PO HS 02/26/24 06/20/24 History meloxicam 15 mg tablet 15 mg PO DAILY #14 tabs 04/24/24 06/20/24 Rx albuterol sulfate 90 mcg/actuation See Rx Instructions .Route 05/15/24 06/20/24 Rx breath activated powder inhaler .COMPLEX #1 ea (ProAir RespiClick) lisinopril 10 mg tablet See Rx Instructions .Route 05/15/24 06/20/24 Rx .COMPLEX #90 tabs ropinirole 0.25 mg tablet 0.25 mg PO HS #14 tabs 05/21/24 06/20/24 Rx gabapentin 600 mg tablet 600 mg PO TID #90 tabs 06/12/24 06/20/24 Rx fluticasone 500 mcg-salmeterol 50 1 inh inhalation BID 90 days #180 06/19/24 06/20/24 Rx mcg/dose blistr powdr for ea inhalation (Advair Diskus) New Prescriptions to Start Prescriptions: Allergies Allergy/AdvReac Type Severity Reaction Status Date / Time hydrocodone AdvReac Nausea Verified 06/19/24 10:06 Assessment and Plan *Assessment and plan (1) Lower back pain: Status: Acute Qualifiers: Chronicity: chronic Back pain laterality: bilateral Sciatica presence: without sciatica Qualified Code(s): M54.50 - Low back pain, unspecified; G89.29 - Other chronic pain Category: Medical Code(s): M54.50 - Low back pain, unspecified (2) Left leg pain: Status: Acute Category: Medical Code(s): M79.605 - Pain in left leg (3) History of recent fall: Status: Acute Category: Medical Code(s): Z91.81 - History of falling Plan I will increase the ropinirole to 0.5 mg at bedtime and send in a muscle relaxer of methocarbamol 500 mg 3 times daily as needed. Patient was counseled that I would like to see her back in 2 weeks to confirm that she is still feeling better and that we do not need to do additional x-rays to rule out fractures from her fall. Patient has tried injections in the past however they have not provided significant improvement. We will follow-up at her next visit. Patient agrees with this plan of care. Patient has been instructed to contact the clinic with any concerns before the next appointment. Dr. Lu has reviewed this note and agrees with this plan of care. This note was dictated using voice recognition software and make contain errors or omissions. All injections are used with Lidocaine, Bupivacaine and Depo Medrol. Occasionally urine drug screen is needed to verify patient's compliance with our office pain contract. This is ordered based off specific treatments related to chronic pain with the potential to abuse certain medications.
== END 2024-06-20 23:59 | disposition home or self-care (01) ==
PROVIDERS: PCP Nurse Practitioner Family; Visit Provider Nurse Practitioner Family
DX: M54.50 Low back pain, unspecified (principal); G89.29 Other chronic pain; M79.605 Pain in left leg; Z91.81 History of falling
CPT/HCPCS: 99212; G0463

== ENCOUNTER 2024-07-03 14:42 | Outpatient (POV) | payer OTHER, SELFPAY ==
--- OUTSIDE RECORDS SUMMARY | 2024-07-03 14:44 | XMS_ITS ---
Care Plan - [facility], [facility] Created on: July 03, 2024 MALINA MADDOX : 1965 Sex: Female Author Organization [facility] , [facility] Address [address] [place] [address] Phone Care Team Providers Care Processes Chemical Design Engineer Name Role Phone Mya JONES, [facility] [phone]
--- OUTSIDE RECORDS SUMMARY | 2024-07-03 14:44 | XMS_ITS ---
Author Organization [facility] , [facility] Address [address] [place] [address] Phone Care Team Providers Care Sonography Technician Name Role Phone Mya JONES, [facility] [phone] Plan of Treatment Future Appointments Date Time Location Provi luz Physician Specified 07/07/2024 9:45AM [facility] EDWIN Roque MD Last Documented On 11:12AM ; [facility] Assessments Includes: Assessments for all patient encounters No Assessments Recorded Medical Equipment - Implanted Devices Includes: Current and historical Devices No Medical Equipment Recorded Medications Administered Includes: Administered Medications in patient's chart No Administered Medications Recorded Results Includes: Results from 07/04/2023 through 07/03/2024 No Results Recorded For Specified Dates History of Present Illness History of Present Illness not supported for this document type No History of Present Illness Recorded Social History No Social History Recorded - Smoking Status Unknown Medical History Includes: Medical History in patient's chart No Medical History Recorded Family History Includes: Family History in patient's chart No Family History Recorded Review of Systems Review of Systems not supported for this document type No Review of Systems Recorded Mental Status No Mental Status Recorded Functional Status No Functional Status Recorded Physical Exam Physical Exam not supported for this document type No Physical Exam Recorded Encounters Includes: Encounters from 07/04/2023 through 07/03/2024 Encounter Provider Location Date Check-In Time Check-Out Time Diagnosis [Patient Encounter] Pool Roque MD 06/19/2024 11:12AM 11:59PM Insurance Includes: Active Insurance Policies Plan Name Member ID Group # Subscriber Relationship Effect laura Dates 1 - [employer] [facility] [id number] MALINA MADDOX Self Clinical Notes Includes: Signed Clinical Notes starting from 03/02/2022 No Clinical Notes Recorded
--- OUTSIDE RECORDS SUMMARY | 2024-07-03 14:44 | XMS_ITS | Clinical Summary ---
Author Organization [facility] , [facility] Address [address] [place] [address] Phone Care Team Providers Care Recovery Assistant Name Role Phone Mya JONES, [facility] [phone] Reason for Visit and Chief Complaint [Patient Encounter] Plan of Treatment Future Appointments Date Time Location Provi luz Physician Specified 07/07/2024 9:45AM [facility] Last Documented On 11:12AM ; [facility] Assessments Includes: Assessments from this encounter No Assessments Recorded Medical Equipment - Implanted Devices Includes: Current Devices No Medical Equipment Recorded Medications Administered Includes: Administered Medications from this encounter No Administered Medications Recorded Results Includes: Results discussed during this encounter No Results Recorded For Specified Dates History of Present Illness Includes: History of Present Illness from this encounter No History of Present Illness Recorded Social History No Social History Recorded - Smoking Status Unknown Medical History Includes: Medical History addressed during this encounter No Medical History Recorded Family History Includes: Family History addressed during this encounter No Family History Recorded Review of Systems Includes: Review of Systems from this encounter No Review of Systems Recorded Mental Status Includes: Mental Status from this encounter No Mental Status Recorded Functional Status Includes: Functional Status from this encounter No Functional Status Recorded Physical Exam Includes: Physical Exam from this encounter No Physical Exam Recorded Encounters Encounter Provider Location Date Check-In Time Check-Out Time Diagnosis [Patient Encounter] Pool Roque MD 06/19/2024 11:12AM 11:59PM Insurance Includes: Active Insurance Policies Plan Name Member ID Group # Subscriber Relationship Effect laura Dates 1 - [employer] [facility] [id number] MALINA MADODX Self Clinical Notes Includes: Clinical Notes from this encounter No Clinical Notes Recorded
[2024-07-03 14:56] VITALS: BP 139/90; PULSE 76; RESP 14; O2SAT 96; BMI 25.7
--- NOTE | 2024-07-03 15:15 | EXP.PAIN.SOA ---
[facility] Disclaimer: The information contained in this section may have been updated after the patient was seen, as this information can be updated by other users. Medical History Lung nodule Carpal tunnel syndrome Insomnia Major depressive disorder Kidney stones Hepatitis Depression CVA (cerebral vascular accident) COPD (chronic obstructive pulmonary disease) GERD (gastroesophageal reflux disease) Hyperlipidemia LDL goal <100 Hypertension Anxiety Surgical History Hx of tubal ligation Hx of tonsillectomy H/O total hysterectomy MUNA BSO in 2006 History of appendectomy Family History Mother Cancer breast Grandmother Cancer breast Social History Smoking Status: Current some day smoker second hand exposure: Yes alcohol intake: never substance use type: marijuana current occupational status: other Travel in the last 8 weeks: None household members: none housing: house number of children: 4 current occupational exposures/hazards: No caffeine: Yes PM Subjective & Objective Subjective Subjective:: Patient is a pleasant 58-year-old female who presents today for 2-week follow-up. Today she does rate her pain a 9 out of 10. She denies any new falls or injuries. She does state from our last visit overall she has gotten much better from the last fall and is not feeling the soreness related to that and the bruising has resolved. She does make mention that she does still have a small knot that is on her left lower leg but does not cause pain. Patient was prescribed ropinirole 0.5 mg at bedtime and methocarbamol 500 mg 3 times daily at our last visit. Patient does state that both of these did really seem to help. Patient is requesting a refill. Her Nigel has been reviewed and is appropriate. Review of Systems: General: No recent weight changes, no fever, no sleep disturbances Respiratory: No cough, no shortness of air, no recurring pulmonary infections Cardiovascular/peripheral vascular: No chest pain, no palpitations, no edema, no shortness of breath Gastrointestinal: No new onset incontinence, normal bowel movements reported Genitourinary: No new onset incontinence Musculoskeletal: Chronic back pain, leg pain Psychiatric: [Normal mood/affect] Neurological: [Denies weakness in extremities], [denies balance issues] Pain at rest (0-10 scale): 9 Objective Objective:: Physical Exam: General: Alert and oriented x3, no acute distress, pleasant and cooperative Lungs: Respirations even and unlabored, symmetrical chest expansion Eyes: PERRL Musculoskeletal: Flexion and extension of lumbar [spine] somewhat guarded secondary to pain, [antalgic gait noted] Neurological: Speech clear, no gross sensory deficit Has patient had previous pain injection?: No Conservative treatment options previously tried: Home exercise plan Length of treatment: Longer than 12 weeks Meds Home Medications and Allergies Home Medications ?Medication ?Instructions ?Recorded ?Confirmed ?Type atorvastatin 10 mg tablet 10 mg PO HS 02/26/24 07/03/24 History buprenorphine 8 mg-naloxone 2 mg 1 tab sublingual DAILY 02/26/24 07/03/24 History sublingual tablet ergocalciferol (vitamin D2) 1,250 1,250 mcg PO WEEKLY 02/26/24 07/03/24 History mcg (50,000 unit) capsule (Vitamin D2) estradiol 2 mg tablet 2 mg PO DAILY 02/26/24 07/03/24 History meloxicam 15 mg tablet 15 mg PO DAILY #14 tabs 04/24/24 07/03/24 Rx albuterol sulfate 90 mcg/actuation See Rx Instructions .Route 05/15/24 07/03/24 Rx breath activated powder inhaler .COMPLEX #1 ea (ProAir RespiClick) lisinopril 10 mg tablet See Rx Instructions .Route 05/15/24 07/03/24 Rx .COMPLEX #90 tabs fluticasone 500 mcg-salmeterol 50 1 inh inhalation BID 90 days #180 06/19/24 07/03/24 Rx mcg/dose blistr powdr for ea inhalation (Advair Diskus) methocarbamol 500 mg tablet 500 mg PO TID #42 tabs 06/20/24 07/03/24 Rx ropinirole 0.5 mg tablet 0.5 mg PO HS #14 tabs 06/20/24 07/03/24 Rx desvenlafaxine succinate 50 mg 50 mg PO DAILY #90 tabs 06/24/24 07/03/24 Rx tablet,extended release 24 hr gabapentin 600 mg tablet 600 mg PO TID #90 tabs 06/24/24 07/03/24 Rx mirtazapine 15 mg tablet 15 - 22.5 mg (1 - 1.5 x 15 mg) PO 06/24/24 07/03/24 Rx #135 tabs New Prescriptions to Start Prescriptions: Allergies Allergy/AdvReac Type Severity Reaction Status Date / Time hydrocodone AdvReac Nausea Verified 06/24/24 10:45 Assessment and Plan *Assessment and plan (1) Lower back pain: Status: Acute Qualifiers: Chronicity: chronic Back pain laterality: bilateral Sciatica presence: without sciatica Qualified Code(s): M54.50 - Low back pain, unspecified; G89.29 - Other chronic pain Category: Medical Code(s): M54.50 - Low back pain, unspecified (2) Left leg pain: Status: Acute Category: Medical Code(s): M79.605 - Pain in left leg Plan I will send in refills of the ropinirole at the increased dosage as well as the methocarbamol. I did marriage and family counselor her if the knot on her lower left leg has not gotten better between now and our next visit I will most likely proceed forward with ultrasound. Patient did not have heat or redness to this area during today's visit. We will continue to monitor this. I did marriage and family counselor her if something changes between now and her next visit and it does get worse to immediately let our office know and we will proceed forward with the ultrasound. Patient agrees with this plan of care. Patient has been instructed to contact the clinic with any concerns before the next appointment. Dr. Lu has reviewed this note and agrees with this plan of care. This note was dictated using voice recognition software and make contain errors or omissions. All injections are used with Lidocaine, Bupivacaine and Depo Medrol. Occasionally urine drug screen is needed to verify patient's compliance with our office pain contract. This is ordered based off specific treatments related to chronic pain with the potential to abuse certain medications.
== END 2024-07-03 23:59 | disposition home or self-care (01) ==
PROVIDERS: PCP Nurse Practitioner Family; Visit Provider Nurse Practitioner Family
DX: M54.50 Low back pain, unspecified (principal); G89.29 Other chronic pain; M79.605 Pain in left leg
CPT/HCPCS: 99212; G0463

== ENCOUNTER 2024-07-14 13:20 | Outpatient (POV) | payer OTHER, SELFPAY ==
--- OUTSIDE RECORDS SUMMARY | 2024-07-14 13:23 | XMS_ITS ---
Author Organization [facility] , [facility] Address [address] [place] [address] Phone Care Team Providers Care Mini Baccarat Dealer Name Role Phone Navjot Curry APRN Unavailable [phone] Pool Roque MD Unavailable [phone] Problems Includes: Active, inactive, and resolved Problems All Visits Onset Date Resolved Date Provider Condition S tatus Lower Back Pain 07/07/2024 Pool richardson MD Active Last Documented On 5 9:51AM ; [facility], [facility] Plan of Treatment Instructions to patient Intervention and counseling on cessation of tobacco use Last Documented On 5 11:08AM ; [facility], [facility] Lose weight Last Documented On 5 9:50AM ; [facility], [facility] Assessments Includes: Assessments for all patient encounters Findings Encounter Date Overweight Physician Specified with Pool Roque MD 07/07/2024 Last Documented On 5 11:55AM ; [facility], [facility] Instructions Includes: Instructions for all patient encounters Instructions to patient Intervention and counseling on cessation of tobacco use Last Documented On 5 11:08AM ; [facility], [facility] Lose weight Last Documented On 5 9:50AM ; [facility], [facility] Medical Equipment - Implanted Devices Includes: Current and historical Devices No Medical Equipment Recorded Medications Includes: Current and historical Medications Current Medications (continue as prescribed) Methocarbamol 500 MG Oral Tablet 07/03/2024 Provider : Brielle Carvajal APRN Diagnosis: Last Documented On 5 9:48AM By Tasneem Fenton ; [facility], [facility] rOPINIRole HCl 0.5 MG Oral Tablet 07/03/2024 Provide r: Brielle Carvajal CORRECTIONAL PROGRAM SPECIALIST Diagnosis: Last Documented On 5 9:48AM By Tasneem Fenton ; [facility], [facility] Buprenorphine HCl-Naloxone H Cl 8-2 MG Sublingual Tablet Sublingual 06/24/2024 Provider: Diagnosis: Last Documented On 5 9:48AM By Tasneem Fenton ; [facility], [facility] Desvenlafaxine Succinate ER 50 MG Oral Tablet Extended Release 24 Hour 06/24/2024 Provider: Marlon Fuentes CORRECTIONAL PROGRAM SPECIALIST Diagnosis: Last Documented On 5 9:49AM By Tasneem Fenton ; [facility], [facility] Mirtazapine 15 MG Oral Tablet 06/24/2024 Provider: Kira Fuentes CORRECTIONAL PROGRAM SPECIALIST Diagnosis: Last Documented On 5 9:49AM By Tasneem Fenton ; [facility], [facility] Advair Diskus 500-50 MCG/ACT Inhalation Aerosol Powder Breath Activated 06/19/2024 Provider: Diagnosis: Last Documented On 5 9:49AM By Tasneem Fenton ; [facility], [facility] Atorvastatin Calcium 10 MG Oral Tablet 06/13/2024 Pr ovider: Navjot Curry CORRECTIONAL PROGRAM SPECIALIST Diagnosis: Last Documented On 5 9:49AM By Tasneem Fenton ; [facility], [facility] Advair Diskus 250-50 MCG/ACT Inhalation Aerosol Powder Breath Activated 06/12/2024 Provider: Diagnosis: Last Documented On 5 9:49AM By Tasneem Fenton ; [facility], [facility] Estradiol 2 MG Oral Tablet 06/12/2024 Provider: Joe Curry CORRECTIONAL PROGRAM SPECIALIST Diagnosis: Last Documented On 5 9:49AM By Tasneem Fenton ; [facility], [facility] Gabapentin 600 MG Oral Tablet 06/12/2024 Provider: Navjot Curry CORRECTIONAL PROGRAM SPECIALIST Diagnosis: Last Documented On 5 9:49AM By Tasneem Fenton ; [facility], [facility] Lisinopril 10 MG Oral Tablet 06/12/2024 Provider: Navjot Curry CORRECTIONAL PROGRAM SPECIALIST Diagnosis: Last Documented On 5 9:49AM By Tasneem Fenton ; [facility], [facility] ProAir RespiClick 108 (90 Ba se) MCG/ACT Inhalation Aerosol Powder Breath Activated 06/12/2024 Provider: Navjot Curry APRN Diagnosis: Last Documented On 5 9:49AM By Tasneem Fenton ; [facility], [facility] Vitamin D (Ergocalciferol) 1 .25 MG (80673 UT) Oral Capsule 06/12/2024 Provider: Navjot Curry APRN Diagnosis: Last Documented On 5 9:49AM By Tasneem Fenton ; [facility], [facility] Medications Administered Includes: Administered Medications in patient's chart No Administered Medications Recorded Vital Signs Includes: Vital Signs from 07/15/2023 through 07/14/2024 Vital Name 07/07/2024 10:17A Height (in) 63 Weight (lb) 145 Body Mass Index 25.7 Body Surface Area 1.7 Note: bs Last Documented: On 07/07/2024 10:17A M ; [facility] Results Includes: Results from 07/15/2023 through 07/14/2024 No Results Recorded For Specified Dates History of Present Illness History of Present Illness not supported for this document type No History of Present Illness Recorded Social History Description Last Updated Yes, current smoker. 07/07/2024 Last Documented On 5 11:55AM ; [facility], [facility] Caffeine use 07/07/2024 Last Documented On 5 11:55AM ; [facility], [facility] Exercising regularly 07/07/2024 Last Documented On 5 11:55AM ; [facility], [facility] No recent change in diet 07/07/2024 Last Documented On 5 11:55AM ; [facility] Not using alcohol 07/07/2024 Last Documented On 5 11:55AM ; [facility], [facility] Not using drugs 07/07/2024 Last Documented On 5 11:55AM ; [facility], [facility] Smoking Status Unknown Medical History Includes: Medical History in patient's chart Description Last Updated Past surgical history non-contributory 0 07/07/2024 Last Documented On 5 11:55AM ; [facility] History of arthritis 07/07/2024 Last Documented On 5 11:55AM ; [facility] History of depression 07/07/2024 Last Documented On 5 11:55AM ; [facility] Family History Includes: Family History in patient's chart Description Last Updated Family history of cancer 07/07/2024 Last Documented On 5 11:55AM ; [facility] Family history of rheumatoid arthritis 0 07/07/2024 Last Documented On 5 11:55AM ; [facility] Stroke / Seizures 07/07/2024 Last Documented On 5 11:55AM ; [facility] Review of Systems Review of Systems not supported for this document type No Review of Systems Recorded Mental Status Description Anxiety Functional Status No Functional Status Recorded Physical Exam Physical Exam not supported for this document type No Physical Exam Recorded Allergies Includes: Active, inactive, and resolved Allergies Substance Type Reaction Onset Date Resolved Date Statu s HYDROcodone-Acetaminophen Allergy 07/07/2024 Active Last Documented On 5 11:07AM ; [facility] Encounters Includes: Encounters from 07/15/2023 through 07/14/2024 Encounter Provider Location Date Check-In Time Check-Out Time Diagnosis Physician Specified Pool richardson MD [facility] 07/08/19 10:07AM 11:01AM Overweight [Patient Encounter] Pool richardson MD 06/20/19 11:12AM 11:59PM Insurance Includes: Active Insurance Policies Plan Name Member ID Group # Subscriber Relationship Effect laura Dates 1 - [employer] [facility] [id number] MALINA MADDOX Self Clinical Notes Includes: Signed Clinical Notes starting from 03/02/2022 * Progress note Date Encounter Last Documented by 07/07/2024 Physician Specified Last documen angel on 07/07/2024; 11:55 AM, Pool Roque MD; [facility] Active Problems & Conditions - Lower Back Pain Chief Complaint The Chief Complaint is: Low back pain. Referred Here Referred by Pain Management. History of Present Illness MALINA MADDOX is a 58 year old female. - Symptoms Catching Heat makes symptoms better Moving makes symptoms worse. - Allergy list reviewed - Problem list reviewed - Medication list reviewed - Previous history of new onset pain Injury is not work related or an automotive accident - Sharp pain Symptoms - Pain is constant (100% of the time) - Patient pain level from 1-10: 9 - Yes, previous treatment. PCP and Dr. Lu - History of Physical Therapy - History of Home Exercise - History of Injections - - Review of medications documented Medications used for this condition: This is a 58-year-old female seeing me as a referral from a pain management center. She was undergoing a lot of injections and it was considering going through with a spinal cord stimulator trial. She was here today to see if there is invasive type surgery that would benefit her instead. Current Medication - Advair Diskus 250-50 MCG/ACT Inhalation Aerosol Powder Breath Activated twice a day 30 days, 0 refills - Advair Diskus 500-50 MCG/ACT Inhalation Aerosol Powder Breath Activated twice a day 30 days, 0 refills - Atorvastatin Calcium 10 MG Oral Tablet once a day 30 days, 0 refills - Buprenorphine HCl-Naloxone HCl 8-2 MG Sublingual Tablet Sublingual twice a day 14 days, 0 refills - Desvenlafaxine Succinate ER 50 MG Oral Tablet Extended Release 24 Hour once a day 30 days, 0 refills - Estradiol 2 MG Oral Tablet once a day 30 days, 0 refills - Gabapentin 600 MG Oral Tablet three times a day 30 days, 0 refills - Lisinopril 10 MG Oral Tablet once a day 30 days, 0 refills - Methocarbamol 500 MG Oral Tablet three times a day 30 days, 0 refills - Mirtazapine 15 MG Oral Tablet take as directed 30 days, 0 refills - ProAir RespiClick 108 (90 Base) MCG/ACT Inhalation Aerosol Powder Breath Activated use as directed 30 days, 0 refills - rOPINIRole HCl 0.5 MG Oral Tablet once a day 30 days, 0 refills - Vitamin D (Ergocalciferol) 1.25 MG (37371 UT) Oral Capsule take as directed 28 days, 0 refills Past Medical/Surgical History Diagnoses: Arthritis. Depression Past surgical history non-contributory. Social History Yes, current smoker. Current diet: No recent change in diet. Caffeine use: Caffeine use. Alcohol: Not using alcohol. Drug Use: Not using drugs. Habits: Exercising regularly. Allergies - HYDROcodone-Acetaminophen Family History Cancer Stroke / Seizures Rheumatoid arthritis Review Of Systems Systemic: Not feeling tired, no recent weight loss, and no recent weight gain. Head: No headache and no sinus pain. Eyes: No vision problems, no Cataracts, no Glasses/Contacts, and no Glaucoma. Otolaryngeal: No hearing loss. Tinnitus. Cardiovascular: No chest pain or discomfort, no palpitations, no Hypertension, and no High Cholesterol. Pulmonary: No daytime asthma symptoms and no chronic cough. Wheezing. Gastrointestinal: Heartburn. No abdominal pain. No Indigestion, no Peptic Ulcer, no GI Stomach Bleed, no Ulcers, and no Acid Reflux. Endocrine: Hot flashes. No muscle weakness, no Diabetes, no Hypothyroid, and no Hyperthyroid. Hematologic: No easy bleeding, no tendency for easy bruising, and no Anemia. Musculoskeletal: Arthritis and lower back pain. No soft tissue swelling. Pain localized to one or more joints. Neurological: No dizziness, no convulsions, and no numbness. Psychological: Anxiety, emotional lability, and depression. No insomnia. Not crying for no reason. Skin: No dry skin. No Ulcers. Scars. No rash. Allergic and Immunologic: No complaint of seasonal allergic reaction. Physical Findings - Vitals taken 07/07/2024 10:17 am bs Height 63 in Weight 145 lbs Body Mass Index 25.7 kg/m2 Body Surface Area 1.7 m2 General: Alert and Oriented A&Ox3 Focused Musculoskeletal Exam of the Spine: Patient is able to ambulate in the room without assistive device No focal tenderness to palpation in the Lumbar Spine Motor HF KE AD EHL GS Right 5/5 5/5 5/5 5/5 5/5 Left 5/5 5/5 2/5* 2/5* 5/5 Sensation L2 L3 L4 L5 S1 Right 2 2 2 2 2 Left 2 2 2 2 2 *Chronic, stroke related Patellar reflex is 2+ bilaterally Achilles reflex is 2+ bilaterally No ankle clonus Symmetric, palpable posterior tibialis pulse bilaterally User Defined 5 This is a 58-year-old female with chronic low back pain and left greater than right lumbar radiculopathy. It was nice seemichelle Bolivar in the office today. I told her I do think she would be a very good candidate for stimulator. Particularly because I think some of this left radicular type pain she was having his residual from his stroke she had several years ago. I do not think she would be a good candidate for invasive type surgery so I think it was stimulator is a very good option in her case. Assessment - Overweight Previous Tests Imaging: X-Ray: X-ray 05/02/2024 [facility]. MRI Scan: An MRI was performed 05/19/2024 [facility]. Counseling/Education - Tobacco use - Use of tobacco assessment performed - Intervention and counseling on cessation of tobacco use - Lose weight Care Team - Navjot Curry APRN Notes This dictation was done with voice recognition software and may contain errors and omissions.
--- OUTSIDE RECORDS SUMMARY | 2024-07-14 13:23 | XMS_ITS ---
Care Plan - [facility], [facility] Created on: July 14, 2024 MALINA MADDOX Clay : 1965 Sex: Female Author Organization [facility], [facility] Address [address] [place] [address] Phone Care Team Providers Care Candy Rolling Machine Operator Name Role Phone Navjot Curry APRN Unavailable [phone] Mya JONES, Pool Unavailable [phone]
--- OUTSIDE RECORDS SUMMARY | 2024-07-14 13:23 | XMS_ITS | Clinical Summary ---
Author Organization [facility] , [facility] Address [address] [place] [address] Phone Care Team Providers Care Rail Director Name Role Phone Navjot Curry APRN Unavailable [phone] Mya JONES, Pool Unavailable [phone] Reason for Visit and Chief Complaint [Patient Encounter] Problems Includes: Problems addressed during this encounter and other active Problems All Visits Onset Date Resolved Date Provider Condition S tatus Lower Back Pain 07/07/2024 Pool richardson MD Active Last Documented On 5 9:51AM ; [facility] Plan of Treatment No Plan of Treatment Recorded Assessments Includes: Assessments from this encounter No Assessments Recorded Medical Equipment - Implanted Devices Includes: Current Devices No Medical Equipment Recorded Medications Includes: Medications discussed during this encounter and other current Medications Current Medications (continue as prescribed) Methocarbamol 500 MG Oral Tablet 07/03/2024 Provider : Brielle Carvajal APRN Diagnosis: Last Documented On 5 9:48AM By Tasneem Fenton ; [facility] rOPINIRole HCl 0.5 MG Oral Tablet 07/03/2024 Provide r: Brielle Carvajal APRN Diagnosis: Last Documented On 5 9:48AM By Tasneem Fenton ; [facility] Buprenorphine HCl-Naloxone H Cl 8-2 MG Sublingual Tablet Sublingual 06/24/2024 Provider: Diagnosis: Last Documented On 5 9:48AM By Tasneem Fenton ; [facility], [facility] Desvenlafaxine Succinate ER 50 MG Oral Tablet Extended Release 24 Hour 06/24/2024 Provider: Marlon Fuentes APRN Diagnosis: Last Documented On 5 9:49AM By Tasneem Fenton ; [facility], [facility] Mirtazapine 15 MG Oral Tablet 06/24/2024 Provider: Kira Fuentes APRN Diagnosis: Last Documented On 5 9:49AM By Tasneem Fenton ; [facility], [facility] Advair Diskus 500-50 MCG/ACT Inhalation Aerosol Powder Breath Activated 06/19/2024 Provider: Diagnosis: Last Documented On 5 9:49AM By Tasneem Fenton ; [facility], [facility] Atorvastatin Calcium 10 MG Oral Tablet 06/13/2024 Pr ovider: Navjot Curry APRN Diagnosis: Last Documented On 5 9:49AM By Tasneem Fenton ; [facility], [facility] Advair Diskus 250-50 MCG/ACT Inhalation Aerosol Powder Breath Activated 06/12/2024 Provider: Diagnosis: Last Documented On 5 9:49AM By Tasneem Fenton ; [facility], [facility] Estradiol 2 MG Oral Tablet 06/12/2024 Provider: Joe Curry APRN Diagnosis: Last Documented On 5 9:49AM By Tasneem Fenton ; [facility], [facility] Gabapentin 600 MG Oral Tablet 06/12/2024 Provider: Navjot Curry APRN Diagnosis: Last Documented On 5 9:49AM By Tasneem Fenton ; [facility], [facility] Lisinopril 10 MG Oral Tablet 06/12/2024 Provider: Navjot Curry APRN Diagnosis: Last Documented On 5 9:49AM By Tasneem Fenton ; [facility], [facility] ProAir RespiClick 108 (90 Ba se) MCG/ACT Inhalation Aerosol Powder Breath Activated 06/12/2024 Provider: Navjot Curry APRN Diagnosis: Last Documented On 5 9:49AM By Tasneem Fenton ; [facility], [facility] Vitamin D (Ergocalciferol) 1 .25 MG (49779 UT) Oral Capsule 06/12/2024 Provider: Navjot Curry APRN Diagnosis: Last Documented On 5 9:49AM By Tasneem Fenton ; [facility], [facility] Medications Administered Includes: Administered Medications from this [...] from this encounter No Physical Exam Recorded Allergies Includes: Active Allergies Substance Type Reaction Onset Date Resolved Date Statu s HYDROcodone-Acetaminophen Allergy 07/07/2024 Active Last Documented On 11:07AM ; [facility], [facility] Encounters Encounter Provider Location Date Check-In Time Check-Out Time Diagnosis [Patient Encounter] Pool Roque MD 06/19/2024 11:12AM 11:59PM Insurance Includes: Active Insurance Policies Plan Name Member ID Group # Subscriber Relationship Effect laura Dates 1 - [employer] [facility] [id number] MALINA MADDOX Self Clinical Notes Includes: Clinical Notes from this encounter No Clinical Notes Recorded
--- OUTSIDE RECORDS SUMMARY | 2024-07-14 13:23 | XMS_ITS | Clinical Summary ---
Author Organization [facility] , [facility] Address [address] [place] [address] Phone Care Team Providers Care Switch Operator Name Role Phone Navjot Curry APRN Unavailable [phone] Mya JONES, Pool Unavailable [phone] Reason for Visit and Chief Complaint The Chief Complaint is: Low back pain Problems Includes: Problems addressed during this encounter and other active Problems Current Visit Onset Date Resolved Date Provider Orestes foy Status Lower Back Pain 07/07/2024 Pool richardson MD Active Last Documented On 5 9:51AM ; [facility] Plan of Treatment Instructions to patient Intervention and counseling on cessation of tobacco use Last Documented On 5 11:08AM ; [facility] Lose weight Last Documented On 5 9:50AM ; [facility] Assessments Includes: Assessments from this encounter Findings - Overweight - Last Documented On 07/07/2024 11:55AM ; [facility] Instructions Includes: Instructions from this encounter Instructions to patient Intervention and counseling on cessation of tobacco use Last Documented On 5 11:08AM ; [facility] Lose weight Last Documented On 5 9:50AM ; [facility] Medical Equipment - Implanted Devices Includes: Current Devices No Medical Equipment Recorded Medications Includes: Medications discussed during this encounter and other current Medications Current Medications (continue as prescribed) Methocarbamol 500 MG Oral Tablet 07/03/2024 Provider : Brielle Carvajal APRN Diagnosis: Last Documented On 5 9:48AM By Tasneem Fenton ; [facility] rOPINIRole HCl 0.5 MG Oral Tablet 07/03/2024 Provide r: Brielle Carvajal MANAGER FURNITURE Diagnosis: Last Documented On 5 9:48AM By Tasneem Fenton ; [facility], [facility] Buprenorphine HCl-Naloxone H Cl 8-2 MG Sublingual Tablet Sublingual 06/24/2024 Provider: Diagnosis: Last Documented On 5 9:48AM By Tasneem Fenton ; [facility], [facility] Desvenlafaxine Succinate ER 50 MG Oral Tablet Extended Release 24 Hour 06/24/2024 Provider: Marlon Fuentes MANAGER [employer]URNITURE Diagnosis: Last Documented On 5 9:49AM By Tasneem Fenton ; [facility], [facility] Mirtazapine 15 MG Oral Tablet 06/24/2024 Provider: Kira Fuentes MANAGER [employer]URNITURE Diagnosis: Last Documented On 5 9:49AM By Tasneem Fenton ; [facility], [facility] Advair Diskus 500-50 MCG/ACT Inhalation Aerosol Powder Breath Activated 06/19/2024 Provider: Diagnosis: Last Documented On 5 9:49AM By Tasneem Fenton ; [facility], [facility] Atorvastatin Calcium 10 MG Oral Tablet 06/13/2024 Pr ovider: Navjot Curry MANAGER FURNITURE Diagnosis: Last Documented On 5 9:49AM By Tasneem Fenton ; [facility], [facility] Advair Diskus 250-50 MCG/ACT Inhalation Aerosol Powder Breath Activated 06/12/2024 Provider: Diagnosis: Last Documented On 5 9:49AM By Tasneem Fenton ; [facility], [facility] Estradiol 2 MG Oral Tablet 06/12/2024 Provider: Joe Curry MANAGER FURNITURE Diagnosis: Last Documented On 5 9:49AM By Tasneem Fenton ; [facility], [facility] Gabapentin 600 MG Oral Tablet 06/12/2024 Provider: Navjot Curry MANAGER FURNITURE Diagnosis: Last Documented On 5 9:49AM By Tasneem Fenton ; [facility], [facility] Lisinopril 10 MG Oral Tablet 06/12/2024 Provider: Navjot Curry MANAGER FURNITURE Diagnosis: Last Documented On 5 9:49AM By Tasneem Fenton ; [facility], [facility] ProAir RespiClick 108 (90 Ba se) MCG/ACT Inhalation Aerosol Powder Breath Activated 06/12/2024 Provider: Navjot Curry APRN Diagnosis: Last Documented On 5 9:49AM By Tasneem Fenton ; [facility] Vitamin D (Ergocalciferol) 1 .25 MG (09057 UT) Oral Capsule 06/12/2024 Provider: Navjot Curry APRN Diagnosis: Last Documented On 5 9:49AM By Tasneem Fenton ; [facility] Medications Administered Includes: Administered Medications from this encounter No Administered Medications Recorded Vital Signs Includes: Vital Signs from this encounter Vital Name 07/07/2024 10:17A Height (in) 63 Weight (lb) 145 Body Mass Index 25.7 Body Surface Area 1.7 Note: bs Last Documented: On 07/07/2024 10:17A M ; [facility] Results Includes: Results discussed during this encounter No Results Recorded For Specified Dates History of Present Illness Includes: History of Present Illness from this encounter MIRELLA MADDOX is a 58 year old female. [...] type surgery that would benefit her instead. Social History Description Last Updated Yes, current smoker. 07/07/2024 Last Documented On 5 11:55AM ; [facility] Caffeine use 07/07/2024 Last Documented On 5 11:55AM ; [facility] Exercising regularly 07/07/2024 Last Documented On 5 11:55AM ; [facility] No recent change in diet 07/07/2024 Last Documented On 5 11:55AM ; [facility], [facility] Not using alcohol 07/07/2024 Last Documented On 5 11:55AM ; [facility], [facility] Not using drugs 07/07/2024 Last Documented On 5 11:55AM ; [facility] Smoking Status Unknown Procedures and Surgical History Includes: Procedures from this encounter Procedures Code Diagnosis Performing Provider Service L ocation Service Date X-ray 05/02/2024 [facility] @ [facility] [id number] Last Documented On 5 9:50AM ; [facility] an MRI was performed 05/19/2024 [place] @ [facility] [id number] Last Documented On 5 9:50AM ; [facility], [facility] Medical History Includes: Medical History addressed during this encounter Description Last Updated Past surgical history non-contributory 0 07/07/2024 Last Documented On 5 11:55AM ; [facility] History of arthritis 07/07/2024 Last Documented On 5 11:55AM ; [facility] History of depression 07/07/2024 Last Documented On 5 11:55AM ; [facility] Family History Includes: Family History addressed during this encounter Description Last Updated Family history of cancer 07/07/2024 Last Documented On 5 11:55AM ; [facility] Family history of rheumatoid arthritis 0 07/07/2024 Last Documented On 5 11:55AM ; [facility] Stroke / Seizures 07/07/2024 Last Documented On 5 11:55AM ; [facility] Review of Systems Includes: Review of Systems from this encounter Systemic: Not feeling tired, no recent weight [...] Immunologic: No complaint of seasonal allergic reaction. Mental Status Includes: Mental Status from this encounter Description Anxiety Functional Status Includes: Functional Status from this encounter No Functional Status Recorded Physical Exam Includes: Physical Exam from this encounter Allergies Includes: Active Allergies Substance Type Reaction Onset Date Resolved Date Statu s HYDROcodone-Acetaminophen Allergy 07/07/2024 Active Last Documented On 11:07AM ; [facility] Encounters Encounter Provider Location Date Check-In Time Check-Out Time Diagnosis Physician Specified Pool richardson MD [facility] 07/08/19 25 10:07AM 11:01AM Overweight Insurance Includes: Active Insurance Policies Plan Name Member ID Group # Subscriber Relationship Effect laura Dates 1 - [facility] [id number] MALINA MADDOX Self Clinical Notes Includes: Clinical Notes from this encounter * Progress note Date Encounter Last Documented by 07/07/2024 Physician Specified Last documen angel on 07/07/2024; 11:55 AM, Pool Roque MD; [facility] Active Problems & Conditions - Lower Back [...] refills - Vitamin D (Ergocalciferol) 1.25 MG (00614 UT) Oral Capsule take as directed 28 [...] Overweight Previous Tests Imaging: X-Ray: X-ray 05/02/2024 [facility] @ [facility]. MRI Scan: An MRI was performed 05/19/2024 [facility] @ [facility]. Counseling/Education - Tobacco use - Use of tobacco assessment performed - Intervention and counseling on cessation of tobacco use - Lose weight Care Team - Navjot Curry APRN Notes This dictation was done with voice recognition software and may contain errors and omissions.
--- NOTE | 2024-07-14 13:56 | A.OFFVIS_ITS ---
[facility] Disclaimer: The information contained in this section may have been updated after the patient was seen, as this information can be updated by other users. Medical History Lung nodule Carpal tunnel syndrome Insomnia Major depressive disorder Kidney stones Hepatitis Depression CVA (cerebral vascular accident) COPD (chronic obstructive pulmonary disease) GERD (gastroesophageal reflux disease) Hyperlipidemia LDL goal <100 Hypertension Anxiety Surgical History Hx of tubal ligation Hx of tonsillectomy H/O total hysterectomy ART TORO in 2006 History of appendectomy Family History Mother Cancer breast Grandmother Cancer breast Social History Smoking Status: Current some day smoker second hand exposure: Yes alcohol intake: never substance use type: marijuana current occupational status: other Travel in the last 8 weeks: None household members: none housing: house number of children: 4 current occupational exposures/hazards: No caffeine: Yes PM Subjective & Objective Subjective Subjective:: Patient is a pleasant 58-year-old female who presents today for worsening pain. Patient rates it a 10 out of 10. She states it is all across her low back and denies any radiating symptoms into her legs. She states it is worse with certain positioning such as getting up and down or bending. Patient states the pain is interfering with her ability perform activities of daily living such as cooking and cleaning. Patient does state that she did end up seeing neurosurgery and they did state that they thought she would benefit from a stimulator. Patient does state that her lower left leg has gotten better from our last visit where she did have a fall with significant bruising. Patient is currently managed with ropinirole 0.5 mg at bedtime and methocarbamol 500 mg 3 times daily. She denies any side effects. She states that the increased dosage did seem to really help. Patient is asking what we can do for this worsening pain. Patient does present today with a TENS unit on to help with the low back pain. Her Nigel has been reviewed and is appropriate. Review of Systems: General: No recent weight changes, no fever, no sleep disturbances Respiratory: No cough, no shortness of air, no recurring pulmonary infections Cardiovascular/peripheral vascular: No chest pain, no palpitations, no edema, no shortness of breath Gastrointestinal: No new onset incontinence, normal bowel movements reported Genitourinary: No new onset incontinence Musculoskeletal: Low back pain Psychiatric: [Normal mood/affect] Neurological: [Denies weakness in extremities], [denies balance issues] Pain at rest (0-10 scale): 10 Objective Objective:: Physical Exam: General: Alert and oriented x3, no acute distress, pleasant and cooperative Lungs: Respirations even and unlabored, symmetrical chest expansion Eyes: PERRL Musculoskeletal: Flexion and extension of lumbar [spine] somewhat guarded se condary to pain, [antalgic gait noted] positive Kemps test, point tenderness along the lower lumbar spine Neurological: Speech clear, no gross sensory deficit Has patient had previous pain injection?: No Conservative treatment options previously tried: Home exercise plan Length of treatment: Longer than 12 weeks Meds Home Medications and Allergies Home Medications ?Medication ?Instructions ?Recorded ?Confirmed ?Type buprenorphine 8 mg-naloxone 2 mg 1 tab sublingual DAILY 02/26/24 07/03/24 History sublingual tablet ergocalciferol (vitamin D2) 1,250 1,250 mcg PO WEEKLY 02/26/24 07/03/24 History mcg (50,000 unit) capsule (Vitamin D2) estradiol 2 mg tablet 2 mg PO DAILY 02/26/24 07/03/24 History meloxicam 15 mg tablet 15 mg PO DAILY #14 tabs 04/24/24 07/03/24 Rx albuterol sulfate 90 mcg/actuation See Rx Instructions .Route 05/15/24 07/03/24 Rx breath activated powder inhaler .COMPLEX #1 ea (ProAir RespiClick) lisinopril 10 mg tablet See Rx Instructions .Route 05/15/24 07/03/24 Rx .COMPLEX #90 tabs fluticasone 500 mcg-salmeterol 50 1 inh inhalation BID 90 days #180 06/19/24 07/03/24 Rx mcg/dose blistr powdr for ea inhalation (Advair Diskus) desvenlafaxine succinate 50 mg 50 mg PO DAILY #90 tabs 06/24/24 07/03/24 Rx tablet,extended release 24 hr gabapentin 600 mg tablet 600 mg PO TID #90 tabs 06/24/24 07/03/24 Rx mirtazapine 15 mg tablet 15 - 22.5 mg (1 - 1.5 x 15 mg) PO 06/24/24 07/03/24 Rx HS #135 tabs methocarbamol 500 mg tablet 500 mg PO TID #90 tabs 07/03/24 Rx ropinirole 0.5 mg tablet 0.5 mg PO HS #30 tabs 07/03/24 Rx atorvastatin 10 mg tablet See Rx Instructions .Route 07/10/24 Rx .COMPLEX #90 tabs New Prescriptions to Start Prescriptions: Allergies Allergy/AdvReac Type Severity Reaction Status Date / Time hydrocodone AdvReac Nausea Verified 06/24/24 10:45 Assessment and Plan *Assessment and plan (1) Chronic low back pain: Status: Acute Category: Medical Code(s): M54.50 - Low back pain, unspecified; G89.29 - Other chronic pain (2) Facet arthropathy: Status: Acute Category: Medical Code(s): M47.819 - Spondylosis without myelopathy or radiculopathy, site unspecified (3) Lumbar spondylosis: Status: Acute Category: Medical Code(s): M47.816 - Spondylosis without myelopathy or radiculopathy, lumbar region Plan Patient is experiencing significant pain in her low back that is worse with bending, twisting or lifting. Patient did have limited range of motion of her lumbar spine with a positive Kemps test during today's visit. I did discuss with the patient that I do believe she would benefit from a lumbar medial branch block. Risk and benefits were discussed with the patient and she would like to proceed forward with this plan of care. Patient has tried and failed conservative therapy including oral medications, heat and ice, topicals, at home stretching exercise for longer than 12 weeks. Patient has been experiencing chronic low back pain for years. Patient was counseled that if she does get significant relief with her first lumbar medial branch block that we will plan on repeating it with the plan to progress forward to a lumbar RFA at a later date. Patient agrees with this plan of care. Patient will be scheduled for her first diagnostic lumbar medial branch block bilaterally L4-L5 and L5-S1 under fluoroscopy. Patient has previously had a lumbar RFA that did provide significant relief back in 2021. These were done at the levels of L4-L5 and L5- S1 with 50% relief. Previous imaging did show facet arthropathy and spondylosis. I will also send in a prescription of Journavx 50 mg twice daily with a 2-week supply. Patient has been instructed to contact the clinic with any concerns before the next appointment. Dr. Lu has reviewed this note and agrees with this plan of care. This note was dictated using voice recognition software and make contain errors or omissions. All injections are used with Lidocaine, Bupivacaine and dexamethasone. Occasionally urine drug screen is needed to verify patient's compliance with our office pain contract. This is ordered based off specific treatments related to chronic pain with the potential to abuse certain medications.
[2024-07-14 14:03] VITALS: BP 131/80; PULSE 75; RESP 18; O2SAT 97; BMI 25.4
== END 2024-07-14 23:59 | disposition home or self-care (01) ==
PROVIDERS: PCP Nurse Practitioner Family; Visit Provider Nurse Practitioner Family
DX: M54.50 Low back pain, unspecified (principal); G89.29 Other chronic pain; M47.819 Spondylosis without myelopathy or radiculopathy, site unspecified; M47.816 Spondylosis without myelopathy or radiculopathy, lumbar region; F17.200 Nicotine dependence, unspecified, uncomplicated; Z73.89 Other problems related to life management difficulty
CPT/HCPCS: 99212; G0463

== ENCOUNTER 2024-07-31 13:55 | Outpatient (POV) | payer OTHER, SELFPAY ==
--- NOTE | 2024-07-31 14:29 | EXP.PAIN.SOA ---
[facility] Disclaimer: The information contained in this section may have been updated after the patient was seen, as this information can be updated by other users. Medical History Lung nodule Carpal tunnel syndrome Insomnia Major depressive disorder Kidney stones Hepatitis Depression CVA (cerebral vascular accident) COPD (chronic obstructive pulmonary disease) GERD (gastroesophageal reflux disease) Hyperlipidemia LDL goal <100 Hypertension Anxiety Surgical History Hx of tubal ligation Hx of tonsillectomy H/O total hysterectomy MUNA BSO in 2006 History of appendectomy Family History Mother Cancer breast Grandmother Cancer breast Social History Smoking Status: Current some day smoker second hand exposure: Yes alcohol intake: never substance use type: marijuana current occupational status: other Travel in the last 8 weeks?: None household members: none housing: house number of children: 4 current occupational exposures/hazards: No caffeine: Yes Have you lived/traveled outside [place] in past 30 days?: No Contact w/someone who lives/traveled outside US past 30 days?: No Exposure to someone with infectious disease in past 14 days?: No Do you have a fever (greater than 100.4 F or 38 C)?: No Have you tested positive for COVID-19?: No Exposed to someone with COVID-19 in past 14 days?: No Do you have a sore throat?: No Do you have a cough?: No Do you have any weakness?: No Do you have any diarrhea?: No Are you experiencing any unusual bleeding?: No Do you have any muscle aches/pain?: No Do you have any abdominal pain?: No Are you experiencing loss of taste or smell?: No PM Subjective & Objective Subjective Subjective:: Patient is a pleasant 58-year-old female who presents today for follow-up. Today she rates her pain a 9 out of 10. She denies any new trauma or injury. Patient is scheduled for a lumbar medial branch block injection on the however is here today to review over her medications. Patient does state that the new medication we prescribed at her last visit did seem to really help and denies any side effects. Patient is currently managed with ropinirole 0.5 mg, methocarbamol 500 mg 3 times a day and journavx 50 mg twice daily. Patient does have a longstanding history of chronic pain with significant comorbidities related to a stroke that left her with residual numbness all down her left side. Patient has had a psychological evaluation and was deemed an appropriate patient for the stimulator trial however her insurance denied this. Patient is asking if we have heard any additional updates. Her Nigel has been reviewed and is appropriate. Review of Systems: General: No recent weight changes, no fever, no sleep disturbances Respiratory: No cough, no shortness of air, no recurring pulmonary infections Cardiovascular/peripheral vascular: No chest pain, no palpitations, no edema, no shortness of breath Gastrointestinal: No new onset incontinence, normal bowel movements reported Genitourinary: No new onset incontinence Musculoskeletal: Low back pain Psychiatric: [Normal mood/affect] Neurological: [Denies weakness in extremities], [denies balance issues] Pain at rest (0-10 scale): 9 Objective Objective:: Physical Exam: General: Alert and oriented x3, no acute distress, pleasant and cooperative Lungs: Respirations even and unlabored, symmetrical chest expansion Eyes: PERRL Musculoskeletal: Flexion and extension of lumbar [spine] somewhat guarded secondary to pain, [antalgic gait noted] Neurological: Speech clear, no gross sensory deficit Has patient had previous pain injection?: No Conservative treatment options previously tried: Home exercise plan Length of treatment: Longer than 12 weeks Meds Home Medications and Allergies Home Medications ?Medication ?Instructions ?Recorded ?Confirmed ?Type buprenorphine 8 mg-naloxone 2 mg 1 tab sublingual DAILY 02/26/24 07/14/24 History sublingual tablet ergocalciferol (vitamin D2) 1,250 1,250 mcg PO WEEKLY 02/26/24 07/14/24 History mcg (50,000 unit) capsule (Vitamin D2) estradiol 2 mg tablet 2 mg PO DAILY 02/26/24 07/14/24 History meloxicam 15 mg tablet 15 mg PO DAILY #14 tabs 04/24/24 07/14/24 Rx albuterol sulfate 90 mcg/actuation See Rx Instructions .Route 05/15/24 07/14/24 Rx breath activated powder inhaler .COMPLEX #1 ea (ProAir RespiClick) lisinopril 10 mg tablet See Rx Instructions .Route 05/15/24 07/14/24 Rx .COMPLEX #90 tabs fluticasone 500 mcg-salmeterol 50 1 inh inhalation BID 90 days #180 06/19/24 07/14/24 Rx mcg/dose blistr powdr for ea inhalation (Advair Diskus) desvenlafaxine succinate 50 mg 50 mg PO DAILY #90 tabs 06/24/24 07/14/24 Rx tablet,extended release 24 hr gabapentin 600 mg tablet 600 mg PO TID #90 tabs 06/24/24 07/14/24 Rx mirtazapine 15 mg tablet 15 - 22.5 mg (1 - 1.5 x 15 mg) PO 06/24/24 07/14/24 Rx HS #135 tabs methocarbamol 500 mg tablet 500 mg PO TID #90 tabs 07/03/24 07/14/24 Rx ropinirole 0.5 mg tablet 0.5 mg PO HS #30 tabs 07/03/24 07/14/24 Rx atorvastatin 10 mg tablet See Rx Instructions .Route 07/10/24 07/14/24 Rx .COMPLEX #90 tabs suzetrigine 50 mg tablet (Journavx) 50 mg PO BID #28 tabs 07/14/24 Rx New Prescriptions to Start Prescriptions: Allergies Allergy/AdvReac Type Severity Reaction Status Date / Time hydrocodone AdvReac Nausea Verified 06/24/24 10:45 Assessment and Plan *Assessment and plan (1) Lower back pain: Status: Acute Qualifiers: Chronicity: chronic Back pain laterality: bilateral Sciatica presence: without sciatica Qualified Code(s): M54.50 - Low back pain, unspecified; G89.29 - Other chronic pain Category: Medical Code(s): M54.50 - Low back pain, unspecified (2) Chronic pain syndrome: Status: Acute Category: Medical Code(s): G89.4 - Chronic pain syndrome Plan I will make sure that she does have refills on her medications. Patient will not be given an additional follow-up appointment today as she is scheduled for an injection on the . Patient was counseled that we will reach out to our authorization department and see if we can get any updates on the possible spinal cord stimulator. We will follow-up with her after this injection. Patient has been instructed to contact the clinic with any concerns before the next appointment. Dr. Lu has reviewed this note and agrees with this plan of care. This note was dictated using voice recognition software and make contain errors or omissions. All injections are used with Lidocaine, Bupivacaine and dexamethasone. Occasionally urine drug screen is needed to verify patient's compliance with our office pain contract. This is ordered based off specific treatments related to chronic pain with the potential to abuse certain medications.
[2024-07-31 15:30] VITALS: BP 144/89; PULSE 72; RESP 14; O2SAT 95; BMI 25.7
== END 2024-07-31 23:59 | disposition home or self-care (01) ==
PROVIDERS: PCP Nurse Practitioner Family; Visit Provider Nurse Practitioner Family
DX: M54.50 Low back pain, unspecified (principal); G89.4 Chronic pain syndrome; F17.200 Nicotine dependence, unspecified, uncomplicated
CPT/HCPCS: 99212; G0463

== ENCOUNTER 2024-08-19 13:04 | Outpatient (POV) | payer OTHER, SELFPAY ==
[2024-08-19 14:16] VITALS: BP 134/88; PULSE 83; RESP 16; O2SAT 95; BMI 25.7
--- NOTE | 2024-08-19 15:56 | EXP.PAIN.SOA ---
[facility] Disclaimer: The information contained in this section may have been updated after the patient was seen, as this information can be updated by other users. Medical History Lung nodule Carpal tunnel syndrome Insomnia Major depressive disorder Kidney stones Hepatitis Depression CVA (cerebral vascular accident) COPD (chronic obstructive pulmonary disease) GERD (gastroesophageal reflux disease) Hyperlipidemia LDL goal <100 Hypertension Anxiety Surgical History Hx of tubal ligation Hx of tonsillectomy H/O total hysterectomy LAVH, BSO in 2006 History of appendectomy Family History Mother Cancer breast Grandmother Cancer breast Social History Smoking Status: Current some day smoker second hand exposure: Yes alcohol intake: never substance use type: marijuana current occupational status: other Travel in the last 8 weeks?: None household members: none housing: house number of children: 4 current occupational exposures/hazards: No caffeine: Yes PM Subjective & Objective Subjective Subjective:: Patient is a pleasant 58-year-old female who presents today for insurance denial of the lumbar medial branch blocks. Today she rates her pain a 9 out of 10. She denies any new falls or injuries. She does state that she is still experiencing the chronic low back pain and neck pain. Patient is not having complaints of radiating symptoms. Patient does state her pain is still more related to certain movements such as bending, twisting or lifting. Patient does state that she is very much still interested in proceeding forward with these procedures as her pain is still interfering with her ability perform activities of daily living such as cooking and cleaning. Patient is currently managed from our office with ropinirole 0.5 mg at bedtime, methocarbamol 500 mg 3 times a day and journavx 50 mg twice a day. Her Nigel has been reviewed and is appropriate. Review of Systems: General: No recent weight changes, no fever, no sleep disturbances Respiratory: No cough, no shortness of air, no recurring pulmonary infections Cardiovascular/peripheral vascular: No chest pain, no palpitations, no edema, no shortness of breath Gastrointestinal: No new onset incontinence, normal bowel movements reported Genitourinary: No new onset incontinence Musculoskeletal: Low back pain Psychiatric: [Normal mood/affect] Neurological: [Denies weakness in extremities], [denies balance issues] Pain at rest (0-10 scale): 9 Objective Objective:: Physical Exam: General: Alert and oriented x3, no acute distress, pleasant and cooperative Lungs: Respirations even and unlabored, symmetrical chest expansion Eyes: PERRL Musculoskeletal: Flexion and extension of lumbar [spine] somewhat guarded secondary to pain, [antalgic gait noted] positive Kemps test Neurological: Speech clear, no gross sensory deficit Has patient had previous pain injection?: No Conservative treatment options previously tried: Home exercise plan Length of treatment: Longer than 12 weeks Meds Home Medications and Allergies Home Medications ?Medication ?Instructions ?Recorded ?Confirmed ?Type buprenorphine 8 mg-naloxone 2 mg 1 tab sublingual DAILY 02/26/24 08/19/24 History sublingual tablet ergocalciferol (vitamin D2) 1,250 1,250 mcg PO WEEKLY 02/26/24 08/19/24 History mcg (50,000 unit) capsule (Vitamin D2) estradiol 2 mg tablet 2 mg PO DAILY 02/26/24 08/19/24 History meloxicam 15 mg tablet 15 mg PO DAILY #14 tabs 04/24/24 08/19/24 Rx lisinopril 10 mg tablet See Rx Instructions .Route 05/15/24 08/19/24 Rx .COMPLEX #90 tabs fluticasone 500 mcg-salmeterol 50 1 inh inhalation BID 90 days #180 06/19/24 08/19/24 Rx mcg/dose blistr powdr for ea inhalation (Advair Diskus) desvenlafaxine succinate 50 mg 50 mg PO DAILY #90 tabs 06/24/24 08/19/24 Rx tablet,extended release 24 hr gabapentin 600 mg tablet 600 mg PO TID #90 tabs 06/24/24 08/19/24 Rx mirtazapine 15 mg tablet 15 - 22.5 mg (1 - 1.5 x 15 mg) PO 06/24/24 08/19/24 Rx HS #135 tabs atorvastatin 10 mg tablet See Rx Instructions .Route 07/10/24 08/19/24 Rx .COMPLEX #90 tabs methocarbamol 500 mg tablet 500 mg PO TID #90 tabs 07/31/24 08/19/24 Rx ropinirole 0.5 mg tablet 0.5 mg PO HS #30 tabs 07/31/24 08/19/24 Rx suzetrigine 50 mg tablet (Journavx) 50 mg PO BID #28 tabs 07/31/24 08/19/24 Rx albuterol sulfate 90 mcg/actuation See Rx Instructions .Route 08/07/24 08/19/24 Rx breath activated powder inhaler .COMPLEX #1 ea (ProAir RespiClick) New Prescriptions to Start Prescriptions: Allergies Allergy/AdvReac Type Severity Reaction Status Date / Time hydrocodone AdvReac Nausea Verified 06/24/24 10:45 Assessment and Plan *Assessment and plan (1) Chronic low back pain: Status: Acute Category: Medical Code(s): M54.50 - Low back pain, unspecified; G89.29 - Other chronic pain (2) Lumbar facet arthropathy: Status: Acute Category: Medical Code(s): M47.816 - Spondylosis without myelopathy or radiculopathy, lumbar region Plan Patient is experiencing significant pain in her low back that is worse with bending, twisting or lifting. Patient did have limited range of motion of her lumbar spine with a positive Kemps test during today's visit. I did discuss with the patient that I do believe she would benefit from a lumbar medial branch block. Risk and benefits were discussed with the patient and she would like to proceed forward with this plan of care. Patient has tried and failed conservative therapy including oral medications, heat and ice, topicals, at home stretching exercise for longer than 12 weeks. Patient has been experiencing chronic low back pain for years. Patient was counseled that if she does get significant relief with her first lumbar medial branch block that we will plan on repeating it with the plan to progress forward to a lumbar RFA at a later date. Patient agrees with this plan of care. Patient will be scheduled for her lumbar medial branch block bilaterally L4-L5 and L5-S1 under fluoroscopy. Patient has symptoms consistent for this injection as well as her latest MRI did show lumbar facet arthropathy. We will resubmit for this procedure and contact the patient once we have approval. Patient has had these in the past and they did give significant relief however has not had any additional since 2021. Patient has been instructed to contact the clinic with any concerns before the next appointment. Dr. Bux has reviewed this note and agrees with this plan of care. This note was dictated using voice recognition software and make contain errors or omissions. All injections are used with Lidocaine, Bupivacaine and dexamethasone unless diagnostic in which there is no steroids injected. Occasionally urine drug screen is needed to verify patient's compliance with our office pain contract. This is ordered based off specific treatments related to chronic pain with the potential to abuse certain medications.
== END 2024-08-19 23:59 | disposition home or self-care (01) ==
LOC: SC.PAIN 13:05
PROVIDERS: PCP Nurse Practitioner Family; Visit Provider Nurse Practitioner Family
DX: M47.816 Spondylosis without myelopathy or radiculopathy, lumbar region (principal); G89.29 Other chronic pain; Z79.899 Other long term (current) drug therapy
CPT/HCPCS: 99212; G0463

== ENCOUNTER 2024-08-28 11:18 | Outpatient (CLI) | payer OTHER, SELFPAY ==
--- NOTE | 2024-08-28 12:30 | CT_ITS ---
FINAL REPORT TECHNIQUE: Thin section axial images were obtained from the lung apices to the upper abdomen by computed tomography. Reformatted images were obtained and reviewed. This study was performed with techniques to keep radiation doses al low as reasonably achievable (ALARA). Individualized dose reduction techniques using automated exposure control or adjustment of mA and/or kV according to the patient's size were employed. CLINICAL HISTORY: lung cancer screening smoker 1ppw now before it was 1ppd x 30 plus years hx of father with lung cancer and hx of uncle on maternal side with lung cancer exposed to 2nd hand smoke COMPARISON: None FINDINGS: CHEST CT LOW DOSE 58-year-old female, 30+ pack year history of smoking, current smoker CTDI vol (mGy): 2.90 DLP (mGy-cm): 106.55 There is no axillary adenopathy. There is no mediastinal or hilar mass or adenopathy, other than a calcified left hilar node. The heart is normal in size. There is no pericardial or pleural effusion. Small, calcified granulomas are noted left lower lobe. Lung window images demonstrate no suspicious infiltrate or nodule. Limited images of the upper abdomen are unremarkable. IMPRESSION: Lung-RADS category 1. Recommend 12 month follow up low dose chest CT. Reviewed, Interpreted and Dictated by Crow Jones MD Transcribed by Marcia Quintero Authenticated and [facility]
--- OUTSIDE RECORDS SUMMARY | 2024-08-28 13:12 | XMS_ITS | Clinical Summary ---
Author Organization Healthcare Address [address] [place] [address] Care Team Providers Care [employer] Plans Staff Officer Name Role Phone Steven Macario MD Primary Care Provider [phone] Allergies No known active allergies Medications Ventolin HFA 108 (90 Base) MCG/ACT inhaler 08/10/2020 Active escitalopram (Lexapro) 20 MG tablet 05/21/2020 Active mirtazapine (Remeron) 15 MG tablet 06/28/2015 Active desvenlafaxine (Pristiq) 50 MG 24 hr tablet 11/07/2020 Active estradiol (Estrace) 2 MG tablet 10/27/2020 Active gabapentin (Neurontin) 800 MG tablet 11/26/2020 Active Active Problems Problem Noted Date Diagnosed Date Impaired cognition 02/14/2021 Impairment of balance 02/14/2021 Lower extremity weakness 08/11/2020 PRES (posterior reversible encephalopathy syndro me) 08/11/2020 Substance use disorder 08/11/2020 Back pain, chronic 03/08/2016 Hepatitis C 06/28/2015 Immunizations Immunization Administration Dates Next Due Hep A / Hep B 03/14/2017,03/14/2017,02/12/2017 Influenza, seasonal, injecta ble, preservative free 06/09/2015 Pneumococcal Polysaccharide PPV23 06/09/2015 Tdap 09/23/2020 Family History Medical History Relation Name Comments Other cancer Mother Relation Name Status Comments Mother Social History Tobacco Use Types Packs/Day Years Used Date Smoking Tobacco: Every Day Smokeless Tobacco: Never Alcohol Use Standard Drinks/Week Comments Never 0 (1 standard drink = 0.6 oz pur e alcohol) Comments Unknown Sex and Gender Information Value Date Recorded Sex Assigned at Not on file Legal Sex Female 8:09 PM EDT Gender Identity Not on file Sexual Orientation Not on file Last Filed Vital Signs Vital Sign Reading Time Taken Comments Blood Pressure 128/98 02/14/2021 9:28 AM EST Pulse 71 02/14/2021 9:28 AM EST Temperature - - Respiratory Rate 16 07/29/2020 8:09 AM EDT Oxygen Saturation 98% 02/14/2021 9:28 AM EST Inhaled Oxygen Concentration - - Weight 51.3 kg (113 lb) 02/14/2021 9:28 AM EST Height 160 cm (5' 3 ) 07/29/2020 8:09 AM EDT Body Mass Index 20.02 07/29/2020 8:09 AM EDT Plan of Treatment Health Maintenance Due Date Last Done Comments [facility]-Depression Screening 1965 [facility]-Infant/Child/Adol SDOH Screenings 1965 [facility]- SDOH Screenings 12/25/1985 [facility]-Adult SDOH Screenings 12/25/1985 [facility]-Pap Smear 03/21/1994 03/21/1991, 08/21/1989 [facility]-Cervical Cancer Screening 12/25/1997 [facility]-HPV/Cotest 12/25/1997 03/21/1991, 08/21/1989 CT Colonography 12/25/2012 Colonoscopy 12/25/2012 FIT-DNA 12/25/2012 FIT 12/25/2012 FOBT 12/25/2012 Sigmoidoscopy 12/25/2012 [facility]-Colorectal Cancer Screening 12/25/2012 [facility]-Hepatitis B Vaccines (3 of 3 - 19+ 3-dose series) 08/12/2017 03/14/2017, 03/14/2017, 02/12/2017 [facility]-Pneumococcal Vaccine: 50 + Years (2 of 2 - PCV) 12/25/2017 06/09/2015 [facility]-Zoster Vaccines (1 of 2) 12/25/2017 FLI-HUENB-80 Vaccine (4 - 2023- season) 2023 02/03/2021, 07/23/2020, 06/22/2020 [facility]-Influenza Vaccine (Seaso n Ended) 2024 06/09/2015 [facility]-DTaP,Tdap,and Td Vaccine s (2 - Td or Tdap) 09/23/2030 09/23/2020 [facility]-Hepatitis A Vaccines Aged Out 017, 03/14/2017, 02/12/2017 No longer eligible based on patient's age to complete this topic HPV Vaccines Aged Out No longer eligi ble based on patient's age to complete this topic [facility]-HIB Vaccines Aged Out No longer e ligible based on patient's age to complete this topic [facility]-IPV Vaccines Aged Out No longer e ligible based on patient's age to complete this topic [facility]-Rotavirus Vaccines Aged Out No lo nger eligible based on patient's age to complete this topic Procedures Procedure Name Priority Date/Time Associated Diagnosis Comments CYTO DATA CONVERSION Routine 03/21/1991 12:00 AM EST from Last 3 Months or Most Recently Relevant to Health Maintenance Results * Cytology (03/21/1991 12:00 AM EST) 03/21/1991 03/21/1991 Narrative [facility] - 03/31/1991 12:00 AM EST [facility] MR #: [id number] [facility] [address] [place], [place] [address] 1965 (Age: 25) FW Collect Date: 03/21/1991 00:00 Receipt Date: 03/21/1991 00:00 Page 1 DEPARTMENT OF PATHOLOGY AND LABORATORY MEDICINE CYTOPATHOLOGY REPORT Email: [email or web address] * Converted Case * This report may not match the original report format ATTENDING MD/Practitioner: Makayla Michelle MD Service: OB Location: Reported: 03/31/1991 00:00 Collected: 03/21/1991 00:00 INTERPRETATION CERVICAL SCRAPE/ENDOCERVICAL BRUSH WITHIN NORMAL LIMITS. SATISFACTORY FOR INTERPRETATION. Electronically Signed Out CHARLENE Grant (ASCP) Steven Aragon MD Cervical cytology is a screening test primarily for squamous cancers and precursors and has associated false negative and positive results. New technologies such as liquid based sampling may decrease but will not eliminate all false negative results. Regular screening and follow-up of unexplained clinical signs and symptoms are recommended to minimize false negative results. Please see the ASCCP website (www.asccp.org) for followup recommendations. If HPV testing was requested, correlation with the results is suggested (please call Microbiology at [phone] for results). CLINICAL INFORMATION: Menstrual History: {Not Provided} Date of Last Menstrual Period: {Not Provided} SPECIMEN DESCRIPTION: A: CERVICAL/VAGINAL SMEAR, PAP ICD: F: {Not Entered} SNOMED CODES: 1; [id number] In cases where a pathologist has signed out the report, the service has been rendered in part by a resident. The signing pathologist has performed and is responsible for the reported pathologic evaluation. us Historical Provider MD LAB PATHOLOGY ORDERABLES Final Result SUNMy Dog Bowl from Last 3 Months or Most Recently Relevant to Health Maintenance Insurance MEDICAID Care Teams [employer] Plans Staff Officer Relationship Specialty Start Date End Date Steven Macario MD [address] [place] [id number] PCP - General 07/30/20
== END 2024-08-28 23:59 | disposition home or self-care (01) ==
LOC: RAD 11:18
PROVIDERS: PCP Nurse Practitioner Family; Visit Provider Internal Medicine Pulmonary Disease
DX: Z12.2 Encounter for screening for malignant neoplasm of respiratory organs (principal); J84.10 Pulmonary fibrosis, unspecified; R91.1 Solitary pulmonary nodule; F17.210 Nicotine dependence, cigarettes, uncomplicated; Z80.1 Family history of malignant neoplasm of trachea, bronchus and lung
CPT/HCPCS: 71271

== ENCOUNTER 2024-09-22 10:05 | Outpatient (POV) | payer OTHER, SELFPAY ==
--- OUTSIDE RECORDS SUMMARY | 2024-09-22 10:11 | XMS_ITS | Encounter Summary ---
Author Organization [employer] ([place], [place], [place], [place]) Address [address] [place] [address] Care Team Providers Care Consumer Lender Name Role Phone Unavailable Primary Care Provider Unavailabl e Encounter Details Date Type Department Care Team (Late st Contact Info) Description 01/17/2020 Transcribed Document [facility] [place] Family Medicine [address] [place] [address] ProviderFemi MD [address] [place] [address] Social History Tobacco Use Types Packs/Day Years Used Date Smoking Tobacco: Never Assessed Comments Unknown Sex and Gender Information Value Date Recorded Sex Assigned at Not on file Legal Sex Female 4:49 PM CDT Gender Identity Not on file Sexual Orientation Not on file documented as of this encounter Miscellaneous Notes * Cerner Conversion Note - Femi Boo MD - 01/17/2020 9:14 PM CDT [facility] [place] [address] KATT MADDOX :1965 Visit Time:01/17/2020 Your Visit Summary Your Care Team Primary Provider: JOHN LEE MD Secondary Provider: Your Diagnosis Cellulitis of left foot excluding toes Cellulitis of right wrist Wound infection - complicated Medical Information You may obtain a copy of your Emergency Department visit from Medical Records by calling the hospital phone number listed above and asking to be directed to the Medical Records Department. If you had special tests, such as EKG???s or X-rays, the interpretation of your tests given to you by the Emergency Department Physician is a preliminary report. Some fractures and illnesses fail to show up on preliminary tests. These will be reviewed again and we will call you if there are any new suggestions. If your symptoms continue notify your physician. After you leave, you should follow the instructions provided. What to do next Follow-Up Appointments Follow Up with [facility] (Find a Doc) When Within 2 to 3 days Where: [place] [address]- Business (1) Follow Up with NOT LISTED PHY When Within 2 to 3 days Allergies No Known Medication Allergies Immunizations This Visit No Immunizations Found Medications What How Much When Instructions Next Dose cephalexin (Keflex 500 mg oral capsule) 1 Capsule(s) Oral Four Times A Day Duration: 10 Day(s) Printed Prescription sulfamethoxazole-trimethoprim (Bactrim DS 800 mg-160 mg oral tablet) 1 Tablet(s) Oral Two Times A Day Duration: 10 Day(s) Printed Prescription The home medications listed are only as accurate as the information you provided. Please continue taking all of your medications prescribed by your Primary Care Provider unless specifically told to change or discontinue the medication. Please direct any questions regarding your home medications to your Primary Care Provider. Take your medications faithfully. Do NOT skip medication. Do NOT stop taking medications without the direction of a physician. Carry a list of your medications with you at all times, and take this medication list with you to your first follow up visit. Report any side effects. Avoid herbal remedies unless discussed with your physician. As part of your treatment plan, your physician may have prescribed a limited course of a controlled substance. This medication may be given to help people with moderate or severe pain or for other medical conditions, but there are risks involved with treatment. Common side effects may include nausea, constipation, drowsiness, sweating, itching, dry mouth, and rash. More serious side effects may include cognitive and motor impairment, like problems with thinking, concentrating, alertness, and movement (e.g. slowed reflexes), and driving and operating heavy machinery can be dangerous. It is important for you to talk to your physician if you have these side effects or questions. These controlled substances can produce physical dependence and be habit-forming if taken for an extended period of time, which means that the body has gotten used to them and may experience withdrawal symptoms if they are abruptly stopped. Withdrawal symptoms can include runny nose, sweating, goose bumps, diarrhea, abdominal cramping, rapid heartbeat, difficulty sleeping, and nervousness. Please dispose of unused and medications per pharmacy guidance. Test Results Laboratory or Other Results This Visit (last charted value for your 01/17/2020 visit) Hematology 01/17/2020 8:07 PM WBC: 8.8 K/uL -- Normal range between ( 4.5 and 10.5 ) RBC: 4.40 Million/uL -- Normal range between ( 3.93 and 5.22 ) Hct: 40.5 % -- Normal range between ( 34.1 and 44.9 ) Hgb: 13.9 g/dL -- Normal range between ( 11.2 and 15.7 ) Platelet Count: 382 K/uL -- Normal range between ( 163 and 369 ) MCH: 31.6 pg -- Normal range between ( 25.6 and 32.2 ) MCHC: 34.3 Gram/dL -- Normal range between ( 32.2 and 36.5 ) MCV: 92.0 fL -- Normal range between ( 79.0 and 94.8 ) Slide Review: No Eos %: 1.9 % -- Normal range between ( 0.0 and 7.0 ) [place] #: 0.90 K/uL -- Normal range between ( 0.16 and 1.00 ) Eos #: 0.17 x10(3)/uL -- Normal range between ( 0.00 and 0.80 ) [place] %: 10.2 % -- Normal range between ( 3.0 and 9.0 ) Baso %: 0.6 % -- Normal range between ( 0.0 and 1.5 ) Baso #: 0.05 x10(3)/uL -- Normal range between ( 0.00 and 0.20 ) RDW: 12.7 % -- Normal range between ( 11.7 and 14.9 ) Neut %: 59.4 % -- Normal range between ( 34.0 and 71.0 ) Neut #: 5.25 K/uL -- Normal range between ( 1.56 and 6.13 ) Lymph %: 27.6 % -- Normal range between ( 19.3 and 53.1 ) Lymph #: 2.44 x10(3)/uL -- Normal range between ( 1.00 and 3.90 ) MPV: 9.0 fL -- Normal range between ( 9.4 and 12.4 ) IG#: 0.03 x10(3)/uL -- Normal range between ( 0.00 and 0.05 ) IG%: 0.30 % -- Normal range between ( 0.00 and 0.60 ) General Chemistry 01/17/2020 8:07 PM Creatinine Level: 1.00 mg/dL -- Normal range between ( 0.55 and 1.02 ) Sodium Level: 142 mmol/L -- Normal range between ( 136 and 146 ) Potassium Level: 3.4 mmol/L -- Normal range between ( 3.5 and 5.1 ) Chloride Level: 109 mmol/L -- Normal range between ( 102 and 112 ) Carbon Dioxide Level: 30 mmol/L -- Normal range between ( 21 and 32 ) Anion Gap: 6 -- Normal range between ( 9 and 20 ) Bilirubin Total: 0.3 mg/dL -- Normal range between ( 0.2 and 1.2 ) A/G Ratio: 0.8 -- Normal range between ( 1.1 and 2.5 ) ALT: 13 Units/Liter -- Normal range between ( 13 and 56 ) AST: 17 Units/Liter -- Normal range between ( 5 and 37 ) Globulin: 4.1 Gram/dL -- Normal range between ( 1.5 and 4.5 ) Alk Phos: 91 Units/Liter -- Normal range between ( 27 and 136 ) Bun/Creatinine: 14.0 -- Normal range between ( 8.0 and 20.0 ) Calcium Level: 8.5 mg/dL -- Normal range between ( 8.4 and 10.1 ) eGFR : >60 mL/min/1.73m2 eGFR NonAfrican: 58 mL/min/1.73m2 Glucose Level: 86 mg/dL -- Normal range between ( 74 and 106 ) Blood Urea Nitrogen: 14 mg/dL -- Normal range between ( 7 and 22 ) Lactic Acid Level: 1.5 mmol/L -- Normal range between ( 0.4 and 2.0 ) Protein Total: 7.3 Gram/dL -- Normal range between ( 6.4 and 8.2 ) Albumin Level: 3.2 Gram/dL -- Normal range between ( 3.4 and 5.0 ) Cardiac Specific Markers 01/17/2020 8:07 PM Troponin I Ultra: <0.015 ng/mL -- Normal range between ( 0.015 and 0.045 ) Coagulation 01/17/2020 8:07 PM INR: 1.0 -- Normal range between ( 0.9 and 1.1 ) PTT: 29.0 Second(s) -- Normal range between ( 24.0 and 34.0 ) PT: 10.3 Second(s) -- Normal range between ( 9.6 and 12.0 ) Endocrinology 01/17/2020 8:07 PM Procalcitonin: <0.25 ng/mL -- Normal range between ( 0.00 and 2.00 ) Toxicology 01/17/2020 8:12 PM UDS Amp: NEGATIVE UDS Marcelle: NEGATIVE UDS Benzo: NEGATIVE UDS Dylan: POSITIVE UDS Opi: NEGATIVE UDS PCP: NEGATIVE UDS TCA: Negative UDS THC: POSITIVE UDS pH: 7.5 Diagnostic Radiology 01/17/2020 7:56 PM CR Chest 1 Vw Portable: CR Chest 1 Vw Portable 01/17/2020 7:55 PM CR Foot Comp Min 3 Vws LT: CR Foot Comp Min 3 Vws LT [employer] Cellulitis, Adult Cellulitis is a skin infection. The infected area is usually warm, red, swollen, and tender. This condition occurs most often in the arms and lower legs. The infection can travel to the muscles, blood, and underlying tissue and become serious. It is very important to get treated for this condition. What are the causes? Cellulitis is caused by bacteria. The bacteria enter through a break in the skin, such as a cut, burn, insect bite, open sore, or crack. What increases the risk? This condition is more likely to occur in people who: ??? Have a weak body defense system (immune system). ??? Have open wounds on the skin, such as cuts, gomez, bites, and scrapes. Bacteria can enter the body through these open wounds. ??? Are older than 60 years of age. ??? Have diabetes. ??? Have a type of long-lasting (chronic) liver disease (cirrhosis) or kidney disease. ??? Are obese. ??? Have a skin condition such as: ? Itchy rash (eczema). ? Slow movement of blood in the veins (venous stasis). ? Fluid buildup below the skin (edema). ??? Have had radiation therapy. ??? Use IV drugs. What are the signs or symptoms? Symptoms of this condition include: ??? Redness, streaking, or spotting on the skin. ??? Swollen area of the skin. ??? Tenderness or pain when an area of the skin is touched. ??? Warm skin. ??? A fever. ??? Chills. ??? Blisters. How is this diagnosed? This condition is diagnosed based on a medical history and physical exam. You may also have tests, including: ??? Blood tests. ??? Imaging tests. How is this treated? Treatment for this condition may include: ??? Medicines, such as antibiotic medicines or medicines to treat allergies (antihistamines). ??? Supportive care, such as rest and application of cold or warm cloths (compresses) to the skin. ??? Hospital care, if the condition is severe. The infection usually starts to get better within 1???2 days of treatment. Follow these instructions at home: Medicines ??? Take [id number] and prescription medicines only as told by your health care provider. ??? If you were prescribed an antibiotic medicine, take it as told by your health care provider. Do not stop taking the antibiotic even if you start to feel better. General instructions ??? Drink enough fluid to keep your urine pale yellow. ??? Do not touch or rub the infected area. ??? Raise (elevate) the infected area above the level of your heart while you are sitting or lying down. ??? Apply warm or cold compresses to the affected area as told by your health care provider. ??? Keep all follow-up visits as told by your health care provider. This is important. These visits let your health care provider make sure a more serious infection is not developing. Contact a health care provider if: ??? You have a fever. ??? Your symptoms do not begin to improve within 1???2 days of starting treatment. ??? Your bone or joint underneath the infected area becomes painful after the skin has healed. ??? Your infection returns in the same area or another area. ??? You notice a swollen bump in the infected area. ??? You develop new symptoms. ??? You have a general ill feeling (malaise) with muscle aches and pains. Get help right away if: ??? Your symptoms get worse. ??? You feel very sleepy. ??? You develop vomiting or diarrhea that persists. ??? You notice red streaks coming from the infected area. ??? Your red area gets larger or turns dark in color. These symptoms may represent a serious problem that is an emergency. Do not wait to see if the symptoms will go away. Get medical help right away. Call your local emergency services (911 in the [place] Do not drive yourself to the hospital. Summary ??? Cellulitis is a skin infection. This condition occurs most often in the arms and lower legs. ??? Treatment for this condition may include medicines, such as antibiotic medicines or antihistamines. ??? Take djui-pwu-qztculv and prescription medicines only as told by your health care provider. If you were prescribed an antibiotic medicine, do not stop taking the antibiotic even if you start to feel better. ??? Contact a health care provider if your symptoms do not begin to improve within 1???2 days of starting treatment or your symptoms get worse. ??? Keep all follow-up visits as told by your health care provider. This is important. These visits let your health care provider make sure that a more serious infection is not developing. This information is not intended to replace advice given to you by your health care provider. Make sure you discuss any questions you have with your health care provider. Document Released: 12/13/2005 Document Revised: 07/25/2018 Document Reviewed: 07/25/2018 [employer] Patient Education ?? 2020 [employer] Emergency Awareness and Preventative Care STROKE is an EMERGENCY Every Minute Counts Act FAST and Check for these signs: FACE Does the face look uneven? ARM Does one arm drift down? SPEECH Does their speech sound strange? TIME Call at any sign of stroke Stroke Risk Factors Atrial Fibrillation (irregular heartbeat) Diabetes Family history of stroke Heart Disease Heavy alcohol use High Blood Pressure High Cholesterol Physical inactivity and obesity Smoking Cigarette Smoking The facts are clear, cigarette smoking will shorten your life. Smoking can cause many illnesses along the way. As a healthcare provider, we recommend that you stop smoking. Assistance with quitting is available by contacting 5-559-LLOK-NOW. This is a free resource providing counseling, support, and referral. Or you may contact your personal physician. National Suicide Prevention Lifeline: The National Suicide Prevention Lifeline is a national network of local crisis centers that provides free and confidential emotional support to people in suicidal crisis or emotional distress 24 hours a day, 7 days a week. Don't Wait! Stop a Heart Attack Before it Starts What is a heart attack? A heart attack is damage or to a part of the heart from severely decreased or lack of blood flow to the heart. Over time, arteries can become narrow from the buildup of fat and cholesterol, which is called plaque. The plaque can rupture causing a blood clot to form. When the blood clot forms, the artery can become severely narrowed or completely blocked, causing a heart attack. Heart attack is the leading cause of in the [place]. 85% of muscle damage occurs within the first 2 hours. Delay in the recognition of heart attack symptoms increases the chances of . Know the early symptoms of a heart attack: Nausea Feeling of fullness in chest Jaw Pain Pain that travels down one or both arms Fatigue/being tired Anxiety Back Pain Chest pressure, squeezing, or discomfort Shortness of breath Sweating, or a cold sweat Feeling of impending doom There are unusual signs of a heart attack, too! Women, the elderly, and diabetics may present with atypical symptoms: Fainting/dizziness Weakness Confusion Risk Factors for a Heart Attack Some heart disease risk factors, such as age and family history, cannot be changed. Others, like smoking and lack of exercise, can be changed. Smoking High Cholesterol High Blood Pressure Family History Obesity Age Gender (Males are at higher risk) Lack of Exercise Diabetes Diet Stress Excessive Alcohol Intake If you or someone you know is experiencing the signs and symptoms of a heart attack, DON???T DELAY. Call immediately and seek help. If someone collapses, perform CPR! Do not attempt to drive if you are having symptoms of heart attack. Hands-Only CPR Why Hands-Only CPR? Hands-Only CPR has been shown to be as effective as conventional CPR for cardiac arrests that occur outside of a hospital. Survival depends on immediately receiving CPR from someone nearby. How do you perform Hands-Only CPR? There are two easy steps: Call if you see a teen or adult collapse Push hard and fast in the center of the chest at a beat of 100 beats per minute. Save a life! 4 WAYS TO GET AHEAD OF SEPSIS SEPSIS is a MEDICAL EMERGENCY. Time matters! Infections put you and your family at risk for a life-threatening condition called sepsis. Sepsis is the body's extreme response to an infection. It is life-threatening, and without timely treatment, sepsis can rapidly lead to tissue damage, organ failure, and . Sepsis happens when an infection you already have-in your skin, lungs, urinary tract or somewhere else-triggers a chain reaction throughout your body. 1 PREVENT INFECTIONS Take good care of chronic conditions. Talk to your doctor about getting the recommended vaccines. 2 PRACTICE GOOD HYGIENE Wash your hands frequently. Keep cuts or open sores clean and covered until they are healed. 3 KNOW THE SYMPTOMS Confusion or disorientation Shortness of breath High heart rate Fever, shivering, or feeling very cold Extreme pain or discomfort Clammy or sweaty skin 4 ACT FAST Get medical care IMMEDIATELY if you suspect sepsis or if you have an infection that is not getting better or is getting worse. To learn more about sepsis and how to prevent infections, visit www.cdc.gov/sepsis. The examination and treatment you have received in the Emergency Department has been done to provide an appropriate evaluation and stabilizing treatment on an emergency basis only. Given the limited resources, it is not meant to be a substitute for complete medical care. The follow-up doctor you named will receive a copy of your records and all test reports. IT IS IMPORTANT THAT YOU SCHEDULE A FOLLOW-UP APPOINTMENT AND ARE RE-EVALUATED. You should report any new complaints, symptoms, or remaining problems at that time. IT IS IMPOSSIBLE FOR THE EMERGENCY DEPARTMENT TO RECOGNIZE AND TREAT ALL ELEMENTS OF INJURY OR ILLNESS IN A SINGLE VISIT. If you have been referred to a specialist physician, it means that we believe you may have a condition that requires the expertise of a specialist. These physicians work in partnership with the hospital and have agreed to see referred patients in their office for further evaluation. KEEP IN MIND THAT THE SPECIALIST HAS HIS/HER OWN OFFICE POLICIES WHICH MAY REQUIRE PROPER INSURANCE OR PAYMENT UP FRONT BEFORE THE SPECIALIST WILL SEE YOU. It is your responsibility to call the specialist physician to make an appointment. We do not have the ability to refer patients to specialists/physicians that work with specific insurance companies. Please be advised that all financial charges or billing practices are determined by that practice, not the hospital. If your insurance company requires that you see a specialist from their approved list, it is your responsibility to contact your insurance company to make those arrangements. It is also your responsibility to follow any other requirements of your insurance company necessary to obtain coverage for claims submitted. We will bill your insurance; however, you are responsible today for any co-pay amounts. You will receive a separate bill for any services you may have received including: emergency, radiology, or pathology physicians. Patient Name:KATT MADDOX I have received this information and was given the opportunity to ask questions. Patient/[employer] Name: Patient/[employer] Signature: Relationship to Patient: Clinician/Hospital [employer] Signature: Please Provide a Telephone Number Where You Can Be Reached: Is it Permissible To Leave a Message? Date: documented in this encounter Plan of Treatment Not on file documented as of this encounter Visit Diagnoses Not on filedocumented in this encounter
--- OUTSIDE RECORDS SUMMARY | 2024-09-22 10:11 | XMS_ITS | Encounter Summary ---
Author Organization [employer] ([place], [place], [place], [place]) Address [address] [place] [address] Care Team Providers Care Investigator Cash Shortage Name Role Phone Unavailable Primary Care Provider Unavailabl e Encounter Details Date Type Department Care Team (Late st Contact Info) Description 01/17/2020 Transcribed Document [facility] [place] [facility] [place] [address] ProviderFemi MD [address] [place] [address] Social History Tobacco Use Types Packs/Day Years Used Date Smoking Tobacco: Never Assessed Comments Unknown Sex and Gender Information Value Date Recorded Sex Assigned at Not on file Legal Sex Female 4:49 PM CDT Gender Identity Not on file Sexual Orientation Not on file documented as of this encounter Miscellaneous Notes * Cerner Conversion Note - Femi ProviderMD - 01/17/2020 9:02 PM CDT documented in this encounter Plan of Treatment Not on file documented as of this encounter Visit Diagnoses Not on filedocumented in this encounter
--- OUTSIDE RECORDS SUMMARY | 2024-09-22 10:11 | XMS_ITS | Encounter Summary ---
Author Organization [employer] ([place], [place], [place], [place]) Address [address] [place] [address] Care Team Providers Care Community Planner Name Role Phone Unavailable Primary Care Provider Unavailabl e Encounter Details Date Type Department Care Team (Late st Contact Info) Description 01/18/2020 Transcribed Document [facility] [place] [facility] [place] [address] ProviderFemi MD [address] [place] [address] Social History Tobacco Use Types Packs/Day Years Used Date Smoking Tobacco: Never Assessed Comments Unknown Sex and Gender Information Value Date Recorded Sex Assigned at Not on file Legal Sex Female 4:49 PM CDT Gender Identity Not on file Sexual Orientation Not on file documented as of this encounter Miscellaneous Notes * Cerner Conversion Note - Historical ProviderMD - 01/18/2020 10:07 AM CYLINDER FILLER CR Chest 1 Vw Portable Ordered: 01/17/2020 Auth (Verified) Reason for Exam: Cough 01/17/2020 21:05 CR Foot Comp Min 3 Vws LT Ordered: 01/17/2020 Auth (Verified) Reason for Exam: PAIN 01/17/2020 21:05 01/18/2020 10:07 (GUERO LUTHER PA) Reviewed by Provider, No further action required X1 - no acute documented in this encounter Plan of Treatment Not on file documented as of this encounter Visit Diagnoses Not on filedocumented in this encounter
--- OUTSIDE RECORDS SUMMARY | 2024-09-22 10:11 | XMS_ITS | Encounter Summary ---
Author Organization [employer] ([place], [place], [place], [place]) Address [address] [place] [address] Care Team Providers Care Frozen Food Selector Name Role Phone Unavailable Primary Care Provider Unavailabl e Encounter Details Date Type Department Care Team (Late st Contact Info) Description 01/22/2020 Transcribed Document [facility] [place] [facility] [address] ProviderFemi MD [address] [place] [address] Social History Tobacco Use Types Packs/Day Years Used Date Smoking Tobacco: Never Assessed Comments Unknown Sex and Gender Information Value Date Recorded Sex Assigned at Not on file Legal Sex Female 4:49 PM CDT Gender Identity Not on file Sexual Orientation Not on file documented as of this encounter Miscellaneous Notes * Cerner Conversion Note - Femi Boo MD - 01/22/2020 9:40 AM NURSE EMERGENCY ROOM Blood Culture Collected: 01/17/2020 20:07 Bacil Complete Body site: Specimen Type: Blood 01/19/2020 08:15 01/22/2020 09:40 (JOANNE HARRINGTON MD-EMR) Reviewed by Provider, No further action required Letter Sent 01/22/2020 09:40 (JOANNE HARRINGTON MD-EMR) Patient Letter Sent. 01/20/2020 14:16 (GUERO LUTHER PA) Reviewed by Provider Ph number is not reachable ; emergency contact # goes to generic . 01/19/2020 19:53 (NISHA GIRALDO PA-C) Reviewed by Provider, Called and Left Message left message with son for patient to call ED 01/19/2020 15:47 (NISHA GIRALDO PA-C) Reviewed by Provider no voice mailbox documented in this encounter Plan of Treatment Not on file documented as of this encounter Visit Diagnoses Not on filedocumented in this encounter
--- OUTSIDE RECORDS SUMMARY | 2024-09-22 10:11 | XMS_ITS | Clinical Summary ---
Author Organization Healthcare Address [address] [place] [address] Care Team Providers Care Computer Hardware Designer Name Role Phone Steven Macario MD Primary Care Provider [phone] Allergies No known active allergies Medications Ventolin [...] 06/09/2015 [facility]Y-Zoster Vaccines (1 of 2) 12/25/2017 QND-CNATI-80 Vaccine (4 - season) 2023 02/03/2021, 07/23/2020, 06/22/2020 UKY-Influenza Vaccine (#1) 2024 06/09/2015 [facility]Y-DTaP,Tdap,and Td Vaccine s (2 [...] Narrative SUNQUEST - 03/31/1991 12:00 AM EST [facility] MR #: [id number] [facility] KATT MADDOX [place], [place] [address] 1965 (Age: 25) FW Collect Date: 03/21/1991 00:00 Receipt Date: 03/21/1991 00:00 Page 1 DEPARTMENT OF PATHOLOGY AND LABORATORY MEDICINE CYTOPATHOLOGY REPORT Email: [email or web address] * Converted Case * This report may [...] results is suggested (please call Microbiology at [phone] for results). CLINICAL INFORMATION: Menstrual History: {Not Provided} Date of Last Menstrual Period: {Not Provided} SPECIMEN DESCRIPTION: A: CERVICAL/VAGINAL SMEAR, PAP ICD: F: {Not Entered} SNOMED CODES: 1; [id number] In cases where a pathologist has signed out the report, the service has been rendered in part by a resident. The signing pathologist has performed and is responsible for the reported pathologic evaluation. us Historical Provider MD LAB PATHOLOGY ORDERABLES Final Result [facility] from Last 3 Months or Most Recently Relevant to Health Maintenance Insurance [employer] Care Teams Computer Hardware Designer Relationship Specialty Start Date End Date Steven Macario MD [address] [place] [id number] PCP - General 07/30/20
--- OUTSIDE RECORDS SUMMARY | 2024-09-22 10:11 | XMS_ITS | Encounter Summary ---
Author Organization [employer] ([place], [place], [place], [place]) Address [address] [place] [address] Care Team Providers Care Photographic Process Screen Maker Name Role Phone Unavailable Primary Care Provider Unavailabl e Encounter Details Date Type Department Care Team (Late st Contact Info) Description 01/17/2020 Transcribed Document [facility] [place] Family Medicine [address] [place] [address] ProviderFemi MD [address] [place] [address] Social History Tobacco Use Types Packs/Day Years Used Date Smoking Tobacco: Never Assessed Comments Unknown Sex and Gender Information Value Date Recorded Sex Assigned at Not on file Legal Sex Female 4:49 PM CDT Gender Identity Not on file Sexual Orientation Not on file documented as of this encounter Miscellaneous Notes * Cerner Conversion Note - Femi Boo MD - 01/17/2020 9:20 PM CDT ED Discharge Entered On: 01/17/2020 21:20 EDT Performed On: 01/17/2020 21:20 EDT by SEBASTIAN VALDES RN ED Discharge Vital Signs Peripheral Pulse Rate : 88 bpm Respiratory Rate : 17 Breaths/Min Systolic Blood Pressure : 158 mmHg (HI) Diastolic Blood Pressure : 67 mmHg Oxygen Saturation : 97 % SEBASTIAN VALDES RN - 01/17/2020 21:20 EDT Electronically signed by Megha Weaver Conversion Track Surfacing Machine Operator Cerner at 07/03/2022 3:13 PM CDT documented in this encounter Plan of Treatment Not on file documented as of this encounter Visit Diagnoses Not on filedocumented in this encounter
--- OUTSIDE RECORDS SUMMARY | 2024-09-22 10:11 | XMS_ITS | Encounter Summary ---
Author Organization [email or web address] ([place], [place], [place], [place]) Address [address] [place] [address] Care Team Providers Care Homeworker Name Role Phone Unavailable Primary Care Provider Unavailabl e Encounter Details Date Type Department Care Team (Late st Contact Info) Description 01/17/2020 Transcribed Document [facility] [place] [address] [place] [address] ProviderFemi MD [address] [place] [address] Social History Tobacco Use Types Packs/Day Years Used Date Smoking Tobacco: Never Assessed Comments Unknown Sex and Gender Information Value Date Recorded Sex Assigned at Not on file Legal Sex Female 4:49 PM CDT Gender Identity Not on file Sexual Orientation Not on file documented as of this encounter Miscellaneous Notes * Cerner Conversion Note - Femi ProviderMD - 01/17/2020 9:21 PM CDT ED Discharge Entered On: 01/17/2020 21:21 EDT Performed On: 01/17/2020 21:21 EDT by SEBASTIAN VALDES RN Discharge Process Patient Disposition : Discharge Personal Belongings With Patient : Yes Patient Education Completed : Yes Teaching Evaluation : Verbalizes understanding IV Discontinued : Yes SEBASTIAN VALDES RN - 01/17/2020 21:21 EDT ED Discharge Discharge To : Home with ambulatory/outpatient follow-up Mode Of Departure : Private vehicle Discharge Instructions Reviewed With, Opportunity For Questions Given : Patient Prescriptions Given to Patient : Yes Number of Prescriptions Given : 2 SEBASTIAN VALDES RN - 01/17/2020 21:21 EDT documented in this encounter Plan of Treatment Not on file documented as of this encounter Visit Diagnoses Not on filedocumented in this encounter
--- OUTSIDE RECORDS SUMMARY | 2024-09-22 10:11 | XMS_ITS | Encounter Summary ---
Author Organization [employer] ([place], [place], [place], [place]) Address [address] [place] [address] Care Team Providers Care Local Company Intermodal Truck Driver Name Role Phone Unavailable Primary Care Provider Unavailabl e Encounter Details Date Type Department Care Team (Late st Contact Info) Description 01/17/2020 Transcribed Document [facility] [place] [address] [place] [address] ProviderFemi MD [address], [place] [id number] Social History Tobacco Use Types Packs/Day Years Used Date Smoking Tobacco: Never Assessed Comments Unknown Sex and Gender Information Value Date Recorded Sex Assigned at Not on file Legal Sex Female 4:49 PM CDT Gender Identity Not on file Sexual Orientation Not on file documented as of this encounter Miscellaneous Notes * Cerner Conversion Note - Femi ProviderMD - 01/17/2020 6:51 PM CDT Broset Violence Assessment Entered On: 01/17/2020 20:18 EDT Performed On: 01/17/2020 20:14 EDT by SEBASTIAN VALDES RN Broset Violence Assessment Broset Violence Checklist of Symptoms : None Broset Violence Symptoms Subtotal : 0 Broset Violence Symptoms Indicator : Low risk (0) Broset Interventions : [place] precautions for safety used SEBASTIAN VALDES RN - 01/17/2020 20:14 EDT documented in this encounter Plan of Treatment Not on file documented as of this encounter Visit Diagnoses Not on filedocumented in this encounter
--- OUTSIDE RECORDS SUMMARY | 2024-09-22 10:11 | XMS_ITS | Referral Summary ---
Author Organization [employer] ([place], [place], [place], [place]) Address [address] [place] [address] Care Team Providers Care Instrument Technician Helper Name Role Phone Unavailable Primary Care Provider Unavailabl e Social History Tobacco Use Types Packs/Day Years Used Date Smoking Tobacco: Never Assessed Comments Unknown Sex and Gender Information Value Date Recorded Sex Assigned at Not on file Legal Sex Female 4:49 PM CDT Gender Identity Not on file Sexual Orientation Not on file Plan of Treatment Not on file
--- OUTSIDE RECORDS SUMMARY | 2024-09-22 10:11 | XMS_ITS | Encounter Summary ---
Author Organization [email or web address] ([place], [place], [place], [place]) Address [address] [place] [address] Care Team Providers Care Integration Aide Name Role Phone Unavailable Primary Care Provider Unavailabl e Encounter Details Date Type Department Care Team (Late st Contact Info) Description 01/17/2020 Transcribed Document [facility] [place] [facility] [place] [address] ProviderFemi MD [address] [place] [address] Social History Tobacco Use Types Packs/Day Years Used Date Smoking Tobacco: Never Assessed Comments Unknown Sex and Gender Information Value Date Recorded Sex Assigned at Not on file Legal Sex Female 4:49 PM CDT Gender Identity Not on file Sexual Orientation Not on file documented as of this encounter Miscellaneous Notes * Cerner Conversion Note - Feim Boo MD - 01/17/2020 8:08 PM CDT Patient: KATT MADDOX Age: 54 years Sex: Female : 1965 Associated Diagnoses: Cellulitis of right wrist; Cellulitis of left foot excluding toes Author: JOSE LEE MD Basic Information Additional information: Chief Complaint from Nursing Triage Note : Chief Complaint 01/17/2020 18:56 EDT Chief Complaint c/o multiple ulcers L foot, R eyebrow, R wrist x 2 weeks. hx of same to finger, treated at [facility] er . History of Present Illness 54-year-old female presented to the emergency department with multiple ulcers. Patient has them on her left foot her right eyebrow and her right wrist. Patient states that she has had these for the last 2 weeks. She has had history of infected ulcers in the past. She denies any diabetes. Patient states that she does take multiple medications but she is unsure what the names are. She denies any trauma to the areas. She is having minimal pain in the sites. No fevers or chills. She does not have any chest pain or shortness of breath. Abdominal pain or vomiting. No diarrhea. No headache, no change in vision, no focal weakness. Review of Systems Constitutional symptoms: No fever, no weakness. Skin symptoms: Lesion, No rash, Eye symptoms: Vision unchanged. Respiratory symptoms: No shortness of breath, Cardiovascular symptoms: No chest pain, no syncope. Gastrointestinal symptoms: No abdominal pain, no nausea, no vomiting. Musculoskeletal symptoms: No Muscle pain, no Joint pain. Neurologic symptoms: No headache, no dizziness. Hematologic/Lymphatic symptoms: Bleeding tendency negative, Health Status Allergies: Allergic Reactions (Selected) No Known Medication Allergies. Medications: (Selected) Inpatient Medications Ordered Normal Saline Flush: 10 mL, IV Push, See Comment. Past Medical/ Family/ Social History Surgical history: No active procedure history items have been selected or recorded.. Family history: No family history items have been selected or recorded.. Social history: Social & Psychosocial Habits No Data Available . Problem list: Active Problems (2) HLD (hyperlipidemia) HTN (hypertension) . Physical Examination Vital Signs Vital Signs/Vital Measures 01/17/2020 18:56 EDT Systolic Blood Pressure 168 mmHg HI Diastolic Blood Pressure 87 mmHg Temperature Mode Fahrenheit Temperature, Fahrenheit 99.1 Deg F Clinical Temperature, C 37.3 Deg C Peripheral Pulse Rate 93 bpm Respiratory Rate 17 Breaths/Min Oxygen Saturation 94 % Oxygen Therapy Mode Room air . General: Alert, no acute distress. Skin: Warm, Patient has multiple ulcers located on the lateral aspect of the left foot and ankle, the medial aspect of the right wrist and over her right eyebrow. They appear to have scabbed over. There is some mild surrounding erythema. No fluctuance, crepitus or discharge.. Cardiovascular: Regular rate and rhythm, No murmur. Respiratory: Lungs are clear to auscultation, breath sounds are equal. Gastrointestinal: Soft, Nontender, Non distended. Musculoskeletal: Normal ROM, no deformity. Neurological: Alert and oriented to person, place, time, and situation, No focal neurological deficit observed. Medical Decision Making Differential Diagnosis:: Cellulitis, abscess, skin ulcer, post-traumatic wound infection. Rationale: 54-year-old female presented to the emergency department with multiple ulcers. They appear to have some mild surrounding cellulitis. Patient afebrile. Hemodynamically stable. Work-up initiated.. Documents reviewed: Emergency department nurses' notes. Results review: Lab results : Lab Results 01/17/2020 20:12 EDT UDS pH 7.5 UDS Amp NEGATIVE UDS Marcelle NEGATIVE UDS Benzo NEGATIVE UDS Dylan POSITIVE UDS Opi NEGATIVE UDS PCP NEGATIVE UDS TCA Negative UDS THC POSITIVE 01/17/2020 20:07 EDT Sodium Level 142 mmol/L Potassium Level 3.4 mmol/L LOW Chloride Level 109 mmol/L Carbon Dioxide Level 30 mmol/L Anion Gap 6 LOW Glucose Level 86 mg/dL Blood Urea Nitrogen 14 mg/dL Creatinine Level 1.00 mg/dL eGFR >60 mL/min/1.73m2 eGFR NonAfrican 58 mL/min/1.73m2 LOW Bun/Creatinine 14.0 Calcium Level 8.5 mg/dL Protein Total 7.3 Gram/dL Albumin Level 3.2 Gram/dL LOW Globulin 4.1 Gram/dL A/G Ratio 0.8 LOW Bilirubin Total 0.3 mg/dL Alk Phos 91 Units/Liter AST 17 Units/Liter ALT 13 Units/Liter Lactic Acid Level 1.5 mmol/L Troponin I Ultra <0.015 ng/mL WBC 8.8 K/uL RBC 4.40 Million/uL Hgb 13.9 g/dL Hct 40.5 % MCV 92.0 fL MCH 31.6 pg MCHC 34.3 Gram/dL Platelet Count 382 K/uL HI MPV 9.0 fL LOW RDW 12.7 % Neut % 59.4 % Neut # 5.25 K/uL Lymph % 27.6 % Lymph # 2.44 x10(3)/uL [place] % 10.2 % HI [place] # 0.90 K/uL Eos % 1.9 % Eos # 0.17 x10(3)/uL Baso % 0.6 % Baso # 0.05 x10(3)/uL Slide Review No IG# 0.03 x10(3)/uL IG% 0.30 % PT 10.3 Second(s) INR 1.0 PTT 29.0 Second(s) . Radiology results: xray of the left foot did not show any acute fracture. Reexamination/ Reevaluation Time: 01/17/2020 21:00:00 . Notes: On reevaluation, patient is feeling better. She has no findings consistent with sepsis. I did asked the patient again if she used any IV drugs as this could be contributing to her abscesses and ulcers. She denies. However her urine was possible for cocaine. I did offer admission the patient as I do believe she can benefit from IV antibiotics. Patient is declining at this time. I did instruct her she needs to follow-up with her PCP in 24 hours. Given strict return precautions. Verbalized understanding.. Impression and Plan Diagnosis Cellulitis of right wrist - Discharge, Medical Cellulitis of left foot excluding toes - Discharge, Medical Plan Condition: Improved. Disposition: Discharged Admit/Transfer/Discharge: Discharge (Order): Start: 01/17/2020 21:01 EDT, Discharge to: Home. Prescriptions: Prescription [facility]: Keflex 500 mg oral capsule (Prescribe): 1 Cap, Oral, QID, for 10 Day(s), 40 Cap, 0 Refill(s) Bactrim DS 800 mg-160 mg oral tablet (Prescribe): 1 Tab, Oral, BID, for 10 Day(s), 20 Tab, 0 Refill(s). Patient was given the following educational materials: Cellulitis, Adult. Follow up with: NOT LISTED [facility] Within 2 to 3 days; [facility] (Find a Doc) Within 2 to 3 days. Counseled: Patient, Family, Regarding diagnosis, Regarding diagnostic results, Regarding treatment plan, Regarding prescription, Patient indicated understanding of instructions. Electronically signed by Megha Weaver Conversion Mortgage Loan Officer Originator Cerner at 07/03/2022 3:04 PM CDT documented in this encounter Plan of Treatment Not on file documented as of this encounter Visit Diagnoses Not on filedocumented in this encounter
--- OUTSIDE RECORDS SUMMARY | 2024-09-22 10:11 | XMS_ITS | Encounter Summary ---
Author Organization [employer] ([place], [place], [place], [place]) Address [address] [place] [address] Care Team Providers Care Motor Vehicles Inspector Name Role Phone Unavailable Primary Care Provider Unavailabl e Encounter Details Date Type Department Care Team (Late st Contact Info) Description 01/17/2020 Transcribed Document [facility] [place] [facility] [place] [address] ProviderFemi MD [address] [place] [address] Social History Tobacco Use Types Packs/Day [...] Femi ProviderMD - 01/17/2020 6:51 PM CDT ED Assessment Entered On: 01/17/2020 20:18 EDT Performed On: 01/17/2020 20:14 EDT by SEBASTIAN VALDES RN ED Quick Look Assessment Level of Consciousness : Alert Affect/Behavior : Manic/disorganized, Restless Orientation : Oriented x 4 Skin Temperature : Warm SEBASTIAN VALDES RN - 01/17/2020 20:14 EDT ED General-Functional Assess Information Obtained From : Patient Communication Barrier : None Primary Language : Setswana Any Spiritual/Cultural Needs or Requests : No Currently in Unsafe Situation : No SEBASTIAN VALDES RN - 01/17/2020 20:14 EDT Social Habits Smoking Status : 10 or more cigarettes (1/2 pack or more)/day in last 30 days Smokeless Tobacco Status : Never Desires Tobacco Cessation Medication : No Reason for No Tobacco Cessation Medication : ED/procedural patient only Desires Tobacco Cessation Calc : 1 SEBASTIAN VALDES RN - 01/17/2020 20:14 EDT Social History (As Of: 01/17/2020 20:18:02 EDT) Cardiovascular ASMT, ED Cardiovascular Assessment WDL : WDL with exceptions (Comment: NSR on the monitor @ 88 bpm; BP 165/85; Denies CP; Denies Cardiac Hx [SEBASTIAN VALDES RN - 01/17/2020 20:14 EDT] ) SEBASTIAN VALDES RN - 01/17/2020 20:14 EDT Respiratory Respiratory Assessment WDL : WDL SEBASTIAN VALDES RN - 01/17/2020 20:14 EDT Oxygen Therapy Oxygen Therapy Mode : Room air SEBASTIAN VADLES RN - 01/17/2020 20:14 EDT Integumentary Assessment Integumentary Assessment WDL : WDL with exceptions (Comment: Various scabs and rashes on hands and feet; L leg swollen and painful to touch; pulses present bilaterally; Pt reports scabs began 2 weeks ago. [SEBASTIAN VALDES RN - 01/17/2020 20:14 EDT] ) SEBASTIAN VALDES RN - 01/17/2020 20:14 EDT Neurologic ASMT, ED Neurologic Assessment WDL : WD SEBASTIAN VALDES RN - 01/17/2020 20:14 EDT documented in this encounter Plan of Treatment Not on file documented as of this encounter Visit Diagnoses Not on filedocumented in this encounter
--- OUTSIDE RECORDS SUMMARY | 2024-09-22 10:11 | XMS_ITS | Encounter Summary ---
Author Organization [employer] ([place], [place], [place], [place]) Address [address] [place] [address] Care Team Providers Care Psychologist Chief Name Role Phone Unavailable Primary Care Provider Unavailabl e Encounter Details Date Type Department Care Team (Late st Contact Info) Description 01/17/2020 Transcribed Document [facility] [place] [facility] [place] [address] ProviderFemi MD [address] [place] [address] Social History Tobacco Use Types Packs/Day Years Used Date Smoking Tobacco: Never Assessed Comments Unknown Sex and Gender Information Value Date Recorded Sex Assigned at Not on file Legal Sex Female 4:49 PM CDT Gender Identity Not on file Sexual Orientation Not on file documented as of this encounter Miscellaneous Notes * Cerner Conversion Note - Femi Boo MD - 01/17/2020 6:51 PM CDT ED Triage Entered On: 01/17/2020 19:02 EDT Performed On: 01/17/2020 18:56 EDT by YAZAN PAGAN RN ED Triage Across the Room Chief Complaint : c/o multiple ulcers L foot, R eyebrow, R wrist x 2 weeks. hx of same to finger, treated at [facility] er Triage Date/Time : 01/17/2020 18:56 EDT YAZAN PAGAN RN - 01/17/2020 18:56 EDT DCP GENERIC CODE Tracking Acuity : 3 - Urgent Tracking Group : [facility] ED YAZAN PAGAN RN - 01/17/2020 18:56 EDT Mode of Arrival : Wheelchair Transported to ED by : Private vehicle To Room Via : Wheelchair Accompanied By : Daughter ED Vital Signs : Document Height & Weight : Document ED Allergies : Document ED Reason for Visit : Document YAZAN PAGAN RN - 01/17/2020 18:56 EDT Infectious Disease History Has the patient ever been tested for COVID-19? : No, Patient stated Does patient have symptoms of COVID-19? : No COVID19 Screening : No Experiencing Infectious Disease Symptoms : No symptoms Physical contact outside [place] in the last 30 days : No Infectious Disease History : Chicken pox/Shingles, Hepatitis C Tuberculosis Symptoms : None YAZAN PAGAN RN - 01/17/2020 18:56 EDT Vital Signs ED Temperature Mode : Fahrenheit Temperature, Fahrenheit : 99.1 Deg F Clinical Temperature, C : 37.3 Deg C Oxygen Therapy Mode : Room air Peripheral Pulse Rate : 93 bpm Respiratory Rate : 17 Breaths/Min Systolic Blood Pressure : 168 mmHg (HI) Diastolic Blood Pressure : 87 mmHg Oxygen Saturation : 94 % YAZAN PAGAN RN - 01/17/2020 18:56 EDT Allergy (As Of: 01/17/2020 19:02:19 EDT) Allergies (Active) No Known Medication Allergies Estimated Onset Date: Unspecified ; Created By: YAZAN PAGAN RN; Reaction Status: Active ; Category: Drug ; Substance: No Known Medication Allergies ; Type: Allergy ; Updated By: YAZAN PAGAN RN; Reviewed Date: 01/17/2020 18:58 EDT Diagnosis Control ED (As Of: 01/17/2020 19:02:19 EDT) Problems(Active) HLD (hyperlipidemia) (SNOMED CT :79278573 ) Name of Problem: HLD (hyperlipidemia) ; Recorder: YAZAN PAGAN RN; Confirmation: Confirmed ; Classification: Medical ; Code: [id number] ; Contributor System: Million-2-1 ; Last Updated: 01/17/2020 19:00 EDT ; Life Cycle Date: 01/17/2020 ; Life Cycle Status: Active ; Vocabulary: SNOMED CT HTN (hypertension) (SNOMED CT :6403295087 ) Name of Problem: HTN (hypertension) ; Recorder: YAZAN PAGAN RN; Confirmation: Confirmed ; Classification: Medical ; Code: [id number] ; Contributor System: Million-2-1 ; Last Updated: 01/17/2020 19:00 EDT ; Life Cycle Date: 01/17/2020 ; Life Cycle Status: Active ; Vocabulary: SNOMED CT Diagnoses(Active) Wound infection - complicated Date: 01/17/2020 ; Diagnosis Type: Reason For Visit ; Confirmation: Complaint of ; Clinical Dx: Wound infection - complicated ; Classification: Medical ; Clinical Service: Emergency medicine ; Code: PNED ; Probability: 0 ; Diagnosis Code: [id number] ED Height and Weight Height Source : Stated Height Entry Format : [place] Height, Feet : 5 ft(Converted to: 152 cm, 60 Inch) Height, Inches : 3 Inch(Converted to: 0 ft 3 Inch, 7.62 cm) Clinical Height : 160.02 cm Weight Source, ED : Critical estimated dosing weight Weight Entry Format : [place] Weight, Pounds : 105 lb Clinical Dosing Weight : 47.73 kg Body Surface Area (BSA) : 1.47 m2 Body Mass Index : 18.6 kg/m2 (LOW) [place] Body Weight (IBW) : 52.02 kg YAZAN PAGAN RN - 01/17/2020 18:56 EDT Electronically signed by Megha Weaver Conversion Automobile Assembly Supervisor Cerner at 07/03/2022 3:15 PM CDT documented in this encounter Plan of Treatment Not on file documented as of this encounter Visit Diagnoses Not on filedocumented in this encounter
--- OUTSIDE RECORDS SUMMARY | 2024-09-22 10:11 | XMS_ITS | Encounter Summary ---
Author Organization [employer] ([place], [place], [place], [place]) Address [address] [place] [address] Care Team Providers Care Canine Deputy Name Role Phone Unavailable Primary Care Provider Unavailabl e Encounter Details Date Type Department Care Team (Late st Contact Info) Description 01/22/2020 Transcribed Document [facility] [place] [address] ProviderFemi MD [address] [place] [address] Social History Tobacco Use Types [...] Femi Boo MD - 01/22/2020 9:40 AM GROUP UNDERWRITER KATT MADDOX [address] [place] [address] 01/17/2020 During a recent visit to our emergency department you have a culture test performed. Cultures are tests that require time to allow for results. We have received information about your culture which requires further treatment. The test you had performed was a Blood culture The results of the culture show Positive for Bacillus . Because of the above result we are recommending the following treatment: contact ED for further instructions This likely is a skin contaminant and not an actual bloodstream infection. We recommend follow-up with your doctor in 2-4 days. If you do not have a doctor you may call our physician referral line at [phone], Sunday through Sunday, to assist with establishing care with a doctor. Results for all test performed may be obtained by contacting our medical records department at [phone]. The medical records department will further instruct you on how. to obtain these results. If a referral to a specialist is also needed they will be listed here: [__] JOANNE HARRINGTON Emergency Department documented in this encounter Plan of Treatment Not on file documented as of this encounter Visit Diagnoses Not on filedocumented in this encounter
--- OUTSIDE RECORDS SUMMARY | 2024-09-22 10:11 | XMS_ITS | Clinical Summary ---
Author Organization [employer] ([place], [place], [place], [place]) Address [address] [place] [address] Care Team Providers Care Java Software Engineer Name Role Phone Unavailable Primary Care Provider [...]
--- NOTE | 2024-09-22 10:29 | EXP.PAIN.SOA ---
[facility] Disclaimer: The information contained in this section may have been updated after the patient was seen, as this information can be updated by other users. Medical History Lung nodule Carpal tunnel syndrome Insomnia Major depressive disorder Kidney stones Hepatitis Depression CVA (cerebral vascular accident) COPD (chronic obstructive pulmonary disease) GERD (gastroesophageal reflux disease) Hyperlipidemia LDL goal <100 Hypertension Anxiety Surgical History Hx of tubal ligation Hx of tonsillectomy H/O total hysterectomy ART TORO in 2006 History of appendectomy Family History Mother Cancer breast Grandmother Cancer breast Social History Smoking Status: Current some day smoker second hand exposure: Yes alcohol intake: never substance use type: marijuana current occupational status: other Travel in the last 8 weeks?: None household members: none housing: house number of children: 4 current occupational exposures/hazards: No caffeine: Yes Have you lived/traveled outside US in past 30 days?: No Contact w/someone who lives/traveled outside US past 30 days?: No Exposure to someone with infectious disease in past 14 days?: No Do you have a fever (greater than 100.4 F or 38 C)?: No Have you tested positive for COVID-19?: No Exposed to someone with COVID-19 in past 14 days?: No Do you have a sore throat?: No Do you have a cough?: No Do you have any weakness?: No Do you have any diarrhea?: No Are you experiencing any unusual bleeding?: No Do you have any muscle aches/pain?: No Do you have any abdominal pain?: No Are you experiencing loss of taste or smell?: No PM Subjective & Objective Subjective Subjective:: Patient is a pleasant 58-year-old female who presents today for medication refill. Today she rates her pain a 9 out of 10. She denies any new falls or injuries. She does state that she is still having the chronic back pain and it does seem worse today. Patient states she is not sure with her increased activity for September if that was playing a role. Patient is scheduled for her injection coming up on the of this month. Patient has been prescribed ropinirole 0.5 mg at bedtime, methocarbamol 500 mg 3 times a day and has tried journavx 50 mg twice a day with some improvement. Patient denies any side effects. Her Nigel has been reviewed and is appropriate. Review of Systems: General: No recent weight changes, no fever, no sleep disturbances Respiratory: No cough, no shortness of air, no recurring pulmonary infections Cardiovascular/peripheral vascular: No chest pain, no palpitations, no edema, no shortness of breath Gastrointestinal: No new onset incontinence, normal bowel movements reported Genitourinary: No new onset incontinence Musculoskeletal: Chronic back pain Psychiatric: [Normal mood/affect] Neurological: [Denies weakness in extremities], [denies balance issues] Pain at rest (0-10 scale): 9 Objective Objective:: Physical Exam: General: Alert and oriented x3, no acute distress, pleasant and cooperative Lungs: Respirations even and unlabored, symmetrical chest expansion Eyes: PERRL Musculoskeletal: Flexion and extension of lumbar [spine] somewhat guarded secondary to pain, [antalgic gait noted] positive Kemps test Neurological: Speech clear, no gross sensory deficit Has patient had previous pain injection?: No Conservative treatment options previously tried: Home exercise plan Length of treatment: Longer than 12 weeks Meds Home Medications and Allergies Home Medications ?Medication ?Instructions ?Recorded ?Confirmed ?Type buprenorphine 8 mg-naloxone 2 mg 1 tab sublingual DAILY 02/26/24 09/22/24 History sublingual tablet ergocalciferol (vitamin D2) 1,250 1,250 mcg PO WEEKLY 02/26/24 09/22/24 History mcg (50,000 unit) capsule (Vitamin D2) meloxicam 15 mg tablet 15 mg PO DAILY #14 tabs 04/24/24 09/22/24 Rx lisinopril 10 mg tablet See Rx Instructions .Route 05/15/24 09/22/24 Rx .COMPLEX #90 tabs fluticasone 500 mcg-salmeterol 50 1 inh inhalation BID 90 days #180 06/19/24 09/22/24 Rx mcg/dose blistr powdr for ea inhalation (Advair Diskus) gabapentin 600 mg tablet 600 mg PO TID #90 tabs 06/24/24 09/22/24 Rx atorvastatin 10 mg tablet See Rx Instructions .Route 07/10/24 09/22/24 Rx .COMPLEX #90 tabs ropinirole 0.5 mg tablet 0.5 mg PO HS #30 tabs 07/31/24 09/22/24 Rx suzetrigine 50 mg tablet (Journavx) 50 mg PO BID #28 tabs 07/31/24 09/22/24 Rx albuterol sulfate 90 mcg/actuation See Rx Instructions .Route 08/07/24 09/22/24 Rx breath activated powder inhaler .COMPLEX #1 ea (ProAir RespiClick) amantadine HCl 100 mg tablet 100 mg PO DAILY 08/28/24 09/22/24 History desvenlafaxine succinate 50 mg 50 mg PO DAILY #90 tabs 08/28/24 09/22/24 Rx tablet,extended release 24 hr montelukast 10 mg tablet 10 mg PO QPM 90 days #90 tabs 08/28/24 09/22/24 Rx estradiol 2 mg tablet See Rx Instructions .Route 09/01/24 09/22/24 Rx .COMPLEX #90 tabs methocarbamol 500 mg tablet See Rx Instructions .Route 09/03/24 09/22/24 Rx .COMPLEX #90 tabs quetiapine 25 mg tablet (Seroquel) 12.5 - 25 mg (0.5 - 1 x 25 mg) PO 09/22/24 09/22/24 Rx HS PRN insomnia #30 tabs New Prescriptions to Start Prescriptions: Allergies Allergy/AdvReac Type Severity Reaction Status Date / Time hydrocodone AdvReac Nausea Verified 09/22/24 09:22 Assessment and Plan *Assessment and plan (1) Chronic low back pain: Status: Acute Category: Medical Code(s): M54.50 - Low back pain, unspecified; G89.29 - Other chronic pain (2) Lumbar facet arthropathy: Status: Acute Category: Medical Code(s): M47.816 - Spondylosis without myelopathy or radiculopathy, lumbar region Plan We will refill her methocarbamol and ropinirole and provide a 3-month supply of these medications. Her other medication was only used as a temporary prescription and it has not been studied beyond 14 days consistent use. Patient has been instructed to contact the clinic with any concerns before the next appointment. Dr. Lu has reviewed this note and agrees with this plan of care. This note was dictated using voice recognition software and make contain errors or omissions. All injections are used with Lidocaine, Bupivacaine and dexamethasone. Occasionally urine drug screen is needed to verify patient's compliance with our office pain contract. This is ordered based off specific treatments related to chronic pain with the potential to abuse certain medications.
[2024-09-22 10:33] VITALS: BP 145/88; PULSE 73; RESP 18; O2SAT 96; BMI 25.3
== END 2024-09-22 23:59 | disposition home or self-care (01) ==
PROVIDERS: PCP Nurse Practitioner Family; Visit Provider Nurse Practitioner Family
DX: M47.816 Spondylosis without myelopathy or radiculopathy, lumbar region (principal); G89.29 Other chronic pain; Z79.899 Other long term (current) drug therapy
CPT/HCPCS: 99212; G0463

== ENCOUNTER 2024-09-30 10:01 | Day surgery (SDC) | payer OTHER, SELFPAY ==
[2024-09-30 10:09] VITALS: BP 119/71; PULSE 79; RESP 18; O2SAT 100; BMI 25.3
[2024-09-30] MEDS: BUPIVACAINE 0.25% 10ML INJ 25 MG IJ (10:23)
[2024-09-30] MEDS: LIDOCAINE 1% 5ML PF VIAL 5 ML (10:23)
[2024-09-30 10:24] VITALS: BP 119/71; PULSE 79; RESP 18; O2SAT 98
--- NOTE | 2024-09-30 10:31 | EXP.HP ---
History of Present Illness *Admission Date: 09/30/24 *Reason for visit:: Lumbar medial branch blocks/facet injections L3-4, L4-5 bilaterally *History of present illness: Degenerative disc lumbar spine multilevels. Lumbar spondylosis. Multilevel lumbar facet arthropathy. Chronic lumbar back pain. [facility] Disclaimer: The information contained in this section may have been updated after the patient was seen, as this information can be updated by other users. Medical History Lung nodule Carpal tunnel syndrome Insomnia Major depressive disorder Kidney stones Hepatitis Depression CVA (cerebral vascular accident) COPD (chronic obstructive pulmonary disease) GERD (gastroesophageal reflux disease) Hyperlipidemia LDL goal <100 Hypertension Anxiety Surgical History Hx of tubal ligation Hx of tonsillectomy H/O total hysterectomy MUNA, BSO in 2006 History of appendectomy Family History Mother Cancer breast Grandmother Cancer breast Social History Smoking Status: Current some day smoker second hand exposure: Yes alcohol intake: never substance use type: marijuana current occupational status: other Travel in the last 8 weeks?: None household members: none housing: house number of children: 4 current occupational exposures/hazards: No caffeine: Yes Have you lived/traveled outside US in past 30 days?: No Contact w/someone who lives/traveled outside US past 30 days?: No Exposure to someone with infectious disease in past 14 days?: No Do you have a fever (greater than 100.4 F or 38 C)?: No Have you tested positive for COVID-19?: No Exposed to someone with COVID-19 in past 14 days?: No Do you have a sore throat?: No Do you have a cough?: No Do you have any weakness?: No Do you have any diarrhea?: No Are you experiencing any unusual bleeding?: No Do you have any muscle aches/pain?: No Do you have any abdominal pain?: No Are you experiencing loss of taste or smell?: No Other Medical History Have you received the Flu Vaccine for this season: No Have you received the Pneumonia Vaccine: No Review of Systems Review of Systems Review of systems:: pertinent systems reviewed and negative unless documented below *Cardiovascular Cardiovascular: Reports system reviewed and no additional complaints, except as documented *Respiratory Respiratory: Reports system reviewed and no additional complaints, except as documented *Gastrointestinal Gastrointestinal: Reports system reviewed and no additional complaints, except as documented *Musculoskeletal Musculoskeletal: Reports system reviewed and no additional complaints, except as documented *Neurologic Neurologic: Reports system reviewed and no additional complaints, except as documented Meds Home Medications and Allergies Home Medications ?Medication ?Instructions ?Recorded ?Confirmed ?Type buprenorphine 8 mg-naloxone 2 mg 1 tab sublingual DAILY 02/26/24 09/30/24 History sublingual tablet ergocalciferol (vitamin D2) 1,250 1,250 mcg PO WEEKLY 02/26/24 09/30/24 History mcg (50,000 unit) capsule (Vitamin D2) meloxicam 15 mg tablet 15 mg PO DAILY #14 tabs 04/24/24 09/30/24 Rx lisinopril 10 mg tablet See Rx Instructions .Route 05/15/24 09/30/24 Rx .COMPLEX #90 tabs fluticasone 500 mcg-salmeterol 50 1 inh inhalation BID 90 days #180 06/19/24 09/30/24 Rx mcg/dose blistr powdr for ea inhalation (Advair Diskus) atorvastatin 10 mg tablet See Rx Instructions .Route 07/10/24 09/30/24 Rx .COMPLEX #90 tabs suzetrigine 50 mg tablet (Journavx) 50 mg PO BID #28 tabs 07/31/24 09/30/24 Rx albuterol sulfate 90 mcg/actuation See Rx Instructions .Route 08/07/24 09/30/24 Rx breath activated powder inhaler .COMPLEX #1 ea (ProAir RespiClick) amantadine HCl 100 mg tablet 100 mg PO DAILY 08/28/24 09/30/24 History desvenlafaxine succinate 50 mg 50 mg PO DAILY #90 tabs 08/28/24 09/30/24 Rx tablet,extended release 24 hr montelukast 10 mg tablet 10 mg PO QPM 90 days #90 tabs 08/28/24 09/30/24 Rx estradiol 2 mg tablet See Rx Instructions .Route 09/01/24 09/30/24 Rx .COMPLEX #90 tabs methocarbamol 500 mg tablet See Rx Instructions .Route 09/22/24 09/30/24 Rx .COMPLEX #90 tabs quetiapine 25 mg tablet (Seroquel) 12.5 - 25 mg (0.5 - 1 x 25 mg) PO 09/22/24 09/30/24 Rx HS PRN insomnia #30 tabs ropinirole 0.5 mg tablet 0.5 mg PO HS #30 tabs 09/22/24 09/30/24 Rx gabapentin 600 mg tablet 600 mg PO TID #90 tabs 09/24/24 09/30/24 Rx New Prescriptions to Start Prescriptions: Allergies Allergy/AdvReac Type Severity Reaction Status Date / Time hydrocodone AdvReac Nausea Verified 09/24/24 13:10 Exam Data for Last 24 hours Vital signs and Labs for Last 24 Hours: Pulse Resp BP Pulse Ox O2 Del Method 79 18 119/71 100 Room Air 09/30/24 10:09 09/30/24 10:09 09/30/24 10:09 09/30/24 10:09 09/30/24 10:09 I & O for Last 24 hours: Intake & Output 09/27/24 09/28/24 09/29/24 09/30/24 23:59 23:59 23:59 23:59 Weight 143 lb *Routine HEENT Exam Head: Present normocephalic and atraumatic Eye: Present EOMI ENT: Present mucous membranes moist *Routine Respiratory Exam Respiratory: Present CTA bilaterally *Routine Cardiovascular Exam Cardiovascular: Present RRR *Routine Abdominal Exam Abdominal: Present normoactive bowel sounds *Routine Rectal Exam Rectal:: deferred *Routine Genitalia Exam Genitalia:: deferred Assessment and Plan *Assessment and plan (1) Lumbar disc disease with radiculopathy: Status: Chronic Category: Medical Code(s): M51.16 - Intervertebral disc disorders with radiculopathy, lumbar region (2) Chronic pain: Status: Chronic Qualifiers: Chronic pain type: chronic pain syndrome Qualified Code(s): G89.4 - Chronic pain syndrome Category: Medical Code(s): G89.29 - Other chronic pain
--- NOTE | 2024-09-30 10:40 | EXP.PAIN.PRO ---
Procedure Date: 09/30/24 Time: 10:30 Anesthesiologist:: Edgardo Guerra CRNA Complications:: None Pre-procedure Diagnosis:: Degenerative disc lumbar spine multilevels. Lumbar radiculopathy. Lumbar spondylosis. Multilevel lumbar facet arthropathy. Post-procedure Diagnosis:: Same. Indications for Procedure:: Patient is a very pleasant 58-year-old female who comes our clinic today for bilateral lumbar L3-4, L4-5 medial branch blocks/facet injections of local anesthetic. Patient describes low lumbar back pain as constant, dull, aching. She reports having difficulty with lumbar flexion, extension, left and right rotation. She rates her pain 7/10. Procedure Details:: Informed consent was obtained and the risk and benefits of the procedure was explained to the patient. Patient was taken to the procedure room where noninvasive monitors were placed, including noninvasive blood pressure cuff as well as pulse oximeter. The area over the lumbar spine was cleansed using chlorhexidine as a cleansing solution. I anesthetized the skin and subcutaneous tissues with 1% Lidocaine. I placed 22-gauge spinal needles into the facet joint/ medial branches of L4-L5, and L5-S1 bilaterally. Needle placement was confirmed with fluoroscopy. After confirmation of needle placement, each site was injected with 1 mL of 1% lidocaine and 0.25 % Marcaine 1 mL. Patient tolerated the procedure without difficulty. There were no complications. Plan and Disposition:: Patient was discharged without incident.
[2024-09-30 10:41] VITALS: BP 143/64; PULSE 73; RESP 18; O2SAT 95
[2024-09-30 10:42] VITALS: BP 119/71; PULSE 79; RESP 18; O2SAT 98
== END 2024-09-30 10:41 | disposition home or self-care (01) ==
PROVIDERS: PCP Nurse Practitioner Family; Visit Provider Nurse Anesthetist, Certified Registered
DX: G89.29 Other chronic pain (principal); M47.816 Spondylosis without myelopathy or radiculopathy, lumbar region; M54.50 Low back pain, unspecified; M51.16 Intervertebral disc disorders with radiculopathy, lumbar region; E78.5 Hyperlipidemia, unspecified; I10 Essential (primary) hypertension; F41.9 Anxiety disorder, unspecified; F44.9 Dissociative and conversion disorder, unspecified; Z86.73 Personal history of transient ischemic attack (TIA), and cerebral infarction without residual deficits; K21.9 Gastro-esophageal reflux disease without esophagitis; K75.9 Inflammatory liver disease, unspecified; Z72.0 Tobacco use; F32.9 Major depressive disorder, single episode, unspecified; G47.00 Insomnia, unspecified; Z79.899 Other long term (current) drug therapy; Z88.5 Allergy status to narcotic agent; Z79.1 Long term (current) use of non-steroidal anti-inflammatories (NSAID)
CPT/HCPCS: 64493; 64494; 99221; J0665; J2003

== ENCOUNTER 2024-11-03 14:37 | Outpatient (POV) | payer OTHER, SELFPAY ==
--- OUTSIDE RECORDS SUMMARY | 2024-11-03 14:40 | XMS_ITS | Encounter Summary ---
Author Organization [employer] ([place], [place], [place], [place]) Address [address] [place] [address] Care Team Providers Care Precision Machining Instructor Name Role Phone Unavailable Primary Care Provider Unavailabl e Encounter Details Date Type Department Care Team (Late st Contact Info) Description 01/17/2020 Transcribed Document [facility] [place] Family Medicine [facility] [place] [address] ProviderFemi MD [address] [place] [address] Social History Tobacco Use Types Packs/Day Years Used Date Smoking Tobacco: Never Assessed Comments Unknown Sex and Gender Information Value Date Recorded Sex Assigned at Not on file Legal Sex Female 4:49 PM CDT Gender Identity Not on file Sexual Orientation Not on file documented as of this encounter Miscellaneous Notes * Cerner Conversion Note - Femi Boo MD - 01/17/2020 8:08 PM CDT [...] hx of same to finger, treated at [facility] . History of Present Illness 54-year-old [...] % 27.6 % Lymph # 2.44 x10(3)/uL Chaves % 10.2 % HI Chaves # 0.90 K/uL Eos % 1.9 % [...] 21:01 EDT, Discharge to: Home. Prescriptions: Prescription Director Of Restaurant Operations Pharmacy: Keflex 500 mg oral capsule (Prescribe): 1 Cap, Oral, QID, for 10 Day(s), 40 Cap, 0 Refill(s) Bactrim DS 800 mg-160 mg oral tablet (Prescribe): 1 Tab, Oral, BID, for 10 Day(s), 20 Tab, 0 Refill(s). Patient was given the following educational materials: Cellulitis, Adult. Follow up with: NOT LISTED [facility] Within 2 to 3 days; [facility] (Find a Doc) Within 2 to 3 days. Counseled: Patient, Family, Regarding diagnosis, Regarding diagnostic results, Regarding treatment plan, Regarding prescription, Patient indicated understanding of instructions. documented in this encounter Plan of Treatment Not on file documented as of this encounter Visit Diagnoses Not on filedocumented in this encounter
--- OUTSIDE RECORDS SUMMARY | 2024-11-03 14:40 | XMS_ITS | Encounter Summary ---
Author Organization [employer] ([place], [place], [place], [place]) Address [address] [place] [address] Care Team Providers Care Retail Department Supervisor Name Role Phone Unavailable Primary Care Provider Unavailabl e Encounter Details Date Type Department Care Team (Late st Contact Info) Description 01/22/2020 Transcribed Document [facility] [place] Family Medicine [facility] [place] [address] ProviderFemi MD [address] [place] [address] Social History Tobacco Use Types Packs/Day [...] Femi Boo MD - 01/22/2020 9:40 AM VECTOR CONTROL ASSISTANT Blood Culture Collected: 01/17/2020 20:07 Bacil Complete [...]
--- OUTSIDE RECORDS SUMMARY | 2024-11-03 14:40 | XMS_ITS | Clinical Summary ---
Author Organization [employer] ([place], [place], [place], [place]) Address [address] [place] [address] Care Team Providers Care Dry House Tender Name Role Phone Unavailable Primary Care Provider [...]
--- OUTSIDE RECORDS SUMMARY | 2024-11-03 14:40 | XMS_ITS | Encounter Summary ---
Author Organization [employer] ([place], [place], [place], [place]) Address [address] [place] [address] Care Team Providers Care Summer Law Associate Name Role Phone Unavailable Primary Care Provider Unavailabl e Encounter Details Date Type Department Care Team (Late st Contact Info) Description 01/17/[address] [facility] [place] Family Medicine [address] [place] [address] ProviderFemi MD [address] [place] [address] Social History Tobacco Use Types [...] Verbalizes understanding IV Discontinued : Yes SEBASTIAN VALDSE RN - 01/17/2020 21:21 EDT ED Discharge [...]
--- OUTSIDE RECORDS SUMMARY | 2024-11-03 14:40 | XMS_ITS | Encounter Summary ---
Author Organization [email or web address] ([place], [place], [place], [place]) Address [address] [place] [address] Care Team Providers Care Machinist Name Role Phone Unavailable Primary Care Provider Unavailabl e Encounter Details Date Type Department Care Team (Late st Contact Info) Description 01/17/2020 Transcribed Document [facility] [place] [address] [place] [address] ProviderFemi MD [address] [place] [address] Social History Tobacco Use Types [...] Boo MD - 01/17/2020 9:14 PM CDT [facility] [place] [address] KATT MADDOX :1965 Visit Time:01/17/2020 [...] 3 days Where: [place] [id number]- Business (1) Follow Up with NOT LISTED [...] range between ( 0.0 and 7.0 ) [place] #: 0.90 K/uL -- Normal range between ( 0.16 and 1.00 ) Eos #: 0.17 x10(3)/uL -- Normal range between ( 0.00 and 0.80 ) [place] %: 10.2 % -- Normal range between [...] these instructions at home: Medicines ??? Take yiyh-qjz-yceyflk and prescription medicines only as told by [...] as antibiotic medicines or antihistamines. ??? Take ykuq-gyp-xjrwzsb and prescription medicines only as told by [...] 12/13/2005 Document Revised: 07/25/2018 Document Reviewed: 07/25/2018 [employer] Patient Education ?? 2020 [employer] Emergency Awareness and Preventative Care STROKE [...] Assistance with quitting is available by contacting 6-403-BLKF-NOW. This is a free resource providing counseling, [...] was given the opportunity to ask questions. Patient/Dog Trainer Name: Patient/Dog Trainer Signature: Relationship to Patient: Clinician/Hospital Dog Trainer Signature: Please Provide a Telephone Number Where You Can Be Reached: Is it Permissible To Leave a Message? Date: documented in this encounter Plan of Treatment Not on file documented as of this encounter Visit Diagnoses Not on filedocumented in this encounter
--- OUTSIDE RECORDS SUMMARY | 2024-11-03 14:40 | XMS_ITS | Encounter Summary ---
Author Organization [employer] ([place], [place], [place], [place]) Address [address] [place] [address] Care Team Providers Care Human Resources Trainer Name Role Phone Unavailable Primary Care Provider Unavailabl e Encounter Details Date Type Department Care Team (Late st Contact Info) Description 01/17/2020 Transcribed Document [facility] [place] [address] [place] [address] ProviderFemi MD [address] [place] [address] Social History Tobacco Use Types [...] SEBASTIAN VALDES RN - 01/17/2020 21:20 EDT documented in this encounter Plan of Treatment Not on file documented as of this encounter Visit Diagnoses Not on filedocumented in this encounter
--- OUTSIDE RECORDS SUMMARY | 2024-11-03 14:40 | XMS_ITS | Referral Summary ---
Author Organization [employer] ([place], [place], [place], [place]) Address [address] [place] [address] Care Team Providers Care Spine Supervisor Name Role Phone Unavailable Primary Care [...]
--- OUTSIDE RECORDS SUMMARY | 2024-11-03 14:40 | XMS_ITS | Clinical Summary ---
Author Organization [facility] Address [address] [place] [address] Care Team Providers Care Restaurant Culinary Manager Name Role Phone Steven Macario MD Primary Care Provider [phone] Allergies No known active allergies Medications Ventolin [...] 06/09/2015 UKY-Zoster Vaccines (1 of 2) 12/25/2017 [id number] Vaccine (4 - season) 2023 02/03/2021, 07/23/2020, [...] Narrative SUNQUEST - 03/31/1991 12:00 AM EST [facility] MR #: [id number] [facility] KATT [place], [place] [address] 1965 (Age: 25) FW Collect Date: 03/21/1991 00:00 Receipt Date: 03/21/1991 00:00 Page 1 DEPARTMENT OF PATHOLOGY AND LABORATORY MEDICINE CYTOPATHOLOGY REPORT Email: [email or web address] * Converted Case * This report may [...] results is suggested (please call Microbiology at [phone] for results). CLINICAL INFORMATION: Menstrual History: {Not Provided} Date of Last Menstrual Period: {Not Provided} SPECIMEN DESCRIPTION: A: CERVICAL/VAGINAL SMEAR, PAP ICD: F: {Not Entered} SNOMED CODES: 1; [id number] In cases where a pathologist has signed out the report, the service has been rendered in part by a resident. The signing pathologist has performed and is responsible for the reported pathologic evaluation. us Zzzhistorical Provider LAB PATHOLOGY ORDERABL ES Final Result SUNQUEST from Last 3 Months or Most Recently Relevant to Health Maintenance Insurance MEDICAID Care Teams Restaurant Culinary Manager Relationship Specialty Start Date End Date Steven Macario MD [address] [place] [id number] PCP - General 07/30/20
--- OUTSIDE RECORDS SUMMARY | 2024-11-03 14:40 | XMS_ITS | Encounter Summary ---
Author Organization [employer] ([place], [place], [place], [place]) Address [address] [place] [address] Care Team Providers Care Class A Lineman Name Role Phone Unavailable Primary Care Provider Unavailabl e Encounter Details Date Type Department Care Team (Late st Contact Info) Description 01/18/[address] [facility] [place] Family Medicine [facility] [place] [address] ProviderFemi MD [address] [place] [address] Social History Tobacco Use Types Packs/Day Years Used Date Smoking Tobacco: Never Assessed Comments Unknown Sex and Gender Information Value Date Recorded Sex Assigned at Not on file Legal Sex Female 4:49 PM CDT Gender Identity Not on file Sexual Orientation Not on file documented as of this encounter Miscellaneous Notes * Cerner Conversion Note - Historical ProviderMD - 01/18/2020 10:07 AM HORSE STUD MANAGER CR Chest 1 Vw Portable Ordered: 01/17/2020 [...]
--- OUTSIDE RECORDS SUMMARY | 2024-11-03 14:40 | XMS_ITS | Encounter Summary ---
Author Organization [employer] ([place], [place], [place], [place]) Address [address] [place] [address] Care Team Providers Care Human Resources Trainer Name Role Phone Unavailable Primary Care Provider Unavailabl e Encounter Details Date Type Department Care Team (Late st Contact Info) Description 01/17/2020 Transcribed Document [facility] [place] Family Medicine [facility] [place] [address] ProviderFemi MD [address] [place] [address] Social History Tobacco Use Types Packs/Day [...] Performed On: 01/17/2020 20:14 EDT by SEBASTIAN VLADES RN ED Quick Look Assessment Level of Consciousness : Alert Affect/Behavior : Manic/disorganized, Restless Orientation : Oriented x 4 Skin Temperature : Warm SEBASTIAN VALDES RN - 01/17/2020 20:14 EDT ED General-Functional Assess Information Obtained From : Patient Communication Barrier : None Primary Language : Khmer Any Spiritual/Cultural Needs or Requests : No [...] Oxygen Therapy Mode : Room air SEBASTIAN VALDES RN - 01/17/2020 20:14 EDT Integumentary Assessment [...]
--- OUTSIDE RECORDS SUMMARY | 2024-11-03 14:40 | XMS_ITS | Encounter Summary ---
Author Organization [employer] ([place], [place], [place], [place]) Address [address] [place] [address] Care Team Providers Care Mold Capper Name Role Phone Unavailable Primary Care Provider Unavailabl e Encounter Details Date Type Department Care Team (Late st Contact Info) Description 01/22/2020 Transcribed Document [facility] [place] [facility] [place] [address] ProviderFemi MD [address] [place] [address] Social History Tobacco Use Types [...] Femi Boo MD - 01/22/2020 9:40 AM PRESS TOOL MAKER KATT MADDOX [address] [place] [address] 01/17/2020 During a recent visit to our [...] may call our physician referral line at [phone], Sunday through Sunday, to assist with establishing care with a doctor. Results for all test performed may be obtained by contacting our medical records department at [phone]. The medical records department will further instruct you on how. to obtain these results. If a referral to a specialist is also needed they will be listed here: [__] JOANNE HARRINGTON Emergency Department documented in this encounter Plan of Treatment Not on file documented as of this encounter Visit Diagnoses Not on filedocumented in this encounter
--- OUTSIDE RECORDS SUMMARY | 2024-11-03 14:40 | XMS_ITS | Encounter Summary ---
Author Organization [employer] ([place], [place], [place], [place]) Address [address] [place] [address] Care Team Providers Care Machine Tool Operator Name Role Phone Unavailable Primary Care Provider Unavailabl e Encounter Details Date Type Department Care Team (Late st Contact Info) Description 01/17/2020 Transcribed Document [facility] [place] [facility] [place] [address] ProviderFemi MD [address] [place] [address] Social History Tobacco Use Types Packs/Day [...] hx of same to finger, treated [facility] er Triage Date/Time : 01/17/2020 18:56 EDT YAZAN PAGAN RN - 01/17/2020 18:56 EDT DCP GENERIC CODE Tracking Acuity : 3 - Urgent Tracking Group : [facility] ED YAZAN PAGAN RN - 01/17/2020 [...] 19:02:19 EDT) Problems(Active) HLD (hyperlipidemia) (SNOMED CT :08873250 ) Name of Problem: HLD (hyperlipidemia) ; Recorder: YAZAN PAGAN RN; Confirmation: Confirmed ; Classification: Medical ; Code: [id number] ; Contributor System: [employer] ; Last Updated: 01/17/2020 19:00 EDT ; Life Cycle Date: 01/17/2020 ; Life Cycle Status: Active ; Vocabulary: SNOMED CT HTN (hypertension) (SNOMED CT :7462862588 ) Name of Problem: HTN (hypertension) ; Recorder: YAZAN PAGAN RN; Confirmation: Confirmed ; Classification: Medical ; Code: [id number] ; Contributor System: [employer] ; Last Updated: 01/17/2020 19:00 EDT ; Life Cycle Date: 01/17/2020 ; Life Cycle Status: Active ; Vocabulary: SNOMED CT Diagnoses(Active) Wound infection - complicated Date: 01/17/2020 ; Diagnosis Type: Reason For Visit ; Confirmation: Complaint of ; Clinical Dx: Wound infection - complicated ; Classification: Medical ; Clinical Service: Emergency medicine ; Code: PNED ; Probability: 0 ; Diagnosis Code: [id number] ED Height and Weight Height Source : Stated Height Entry Format : [place] Height, Feet : 5 ft(Converted to: 152 cm, 60 Inch) Height, Inches : 3 Inch(Converted to: 0 ft 3 Inch, 7.62 cm) Clinical Height : 160.02 cm Weight Source, ED : Critical estimated dosing weight Weight Entry Format : [place] Weight, Pounds : 105 lb Clinical Dosing Weight : 47.73 kg Body Surface Area (BSA) : 1.47 m2 Body Mass Index : 18.6 kg/m2 (LOW) [place] Body Weight (IBW) : 52.02 kg YAZAN PAGAN RN - 01/17/2020 18:56 EDT Electronically signed by Megha Weaver Conversion Honing Machine Operator Semiautomatic Cerner at 07/03/2022 3:15 PM CDT documented in this encounter Plan of Treatment Not on file documented as of this encounter Visit Diagnoses Not on filedocumented in this encounter
--- OUTSIDE RECORDS SUMMARY | 2024-11-03 14:40 | XMS_ITS | Encounter Summary ---
Author Organization [employer] ([place], [place], [place], [place]) Address [address] [place] [address] Care Team Providers Care Rn Surgical Name Role Phone Unavailable Primary Care Provider Unavailabl e Encounter Details Date Type Department Care Team (Late st Contact Info) Description 01/17/2020 Transcribed Document [facility] [place] [address] [place] [address] ProviderFemi MD [address] [place], [place] [address] Social History Tobacco Use Types Packs/Day Years [...] : Low risk (0) [place] Interventions : [place] precautions for safety used SEBASTIAN VALDES RN - 01/17/2020 20:14 EDT documented in this encounter Plan of Treatment Not on file documented as of this encounter Visit Diagnoses Not on filedocumented in this encounter
--- OUTSIDE RECORDS SUMMARY | 2024-11-03 14:40 | XMS_ITS | Encounter Summary ---
Author Organization [employer] ([place], [place], [place], [place]) Address [address] [place] [address] Care Team Providers Care International Account Representative Name Role Phone Unavailable Primary Care Provider Unavailabl e Encounter Details Date Type Department Care Team (Late st Contact Info) Description 01/17/2020 Transcribed Document [facility] [place] Family Medicine [facility] [place] [address] ProviderFemi MD [address] [place] [address] Social History Tobacco Use Types [...] Femi ProviderMD - 01/17/2020 9:02 PM CDT Electronically signed by Meg [facility] Conversion Shot Tube Machine Tender Cerner at 07/03/2022 3:17 PM CDT documented in this encounter Plan of Treatment Not on file documented as of this encounter Visit Diagnoses Not on filedocumented in this encounter
--- OUTSIDE RECORDS SUMMARY | 2024-11-03 14:40 | XMS_ITS | Clinical Summary ---
[facility] Organization [facility] Address [address] [place] [address] Care Team Providers Care Trestle Builder Name Role Phone Steven Macario MD Primary Care Provider [phone] Social History Tobacco Use Types Packs/Day Years Used Date Smoking Tobacco: Never Assessed Abuse Screen Answer Date Recorded Unsafe at Home or Work/School Not on file Feels Threatened by Someone? Not on file 01/2023 Does Anyone Keep You from Co ntacting Others or Doint Things Outside the Home? Not on file 12/27/2022 Physical Sign of Abuse Present Not on file 1 Housing Stability Answer Date Recorded Current Living Arrangements Not on file 12/17 Potentially Unsafe Housing Conditions Not on london e 12/27/2022 Family and Community Support Answer Sanjay e Recorded Help with Day-to-Day Activities Not on file 12/27/2022 Lonely or Isolated Not on file 12/27/2022 Employment Answer Date Recorded Do you want help finding or keeping work or a nicki b? Not on file 12/27/2022 Disabilities Answer Date Recorded Concentrating, Remembering, or Making Decisions Difficulty Not on file 12/27/2022 Doing Errands Independently Difficulty Not on fi le 12/27/2022 Education Answer Date Recorded Help with school or training? Not on file Preferred Language Not on file 12/27/2022 Comments Unknown Sex and Gender Information Value Date Recorded Sex Assigned at Not on file Legal Sex Female 12:24 PM EDT Gender Identity Not on file Sexual Orientation Not on file Plan of Treatment Health Maintenance Due Date Last Done Comments Annual Gynecologic Pelvic and Breast Exam 1965 TDAP/TD VACCINES (1 - Tdap) 12/25/1986 MAMMOGRAM 2007 COLOGUARD 12/25/2012 COLON CANCER SCREENING 5 YEAR SIGMOIDOSCOPY 12/25/2012 COLONOSCOPY 12/25/2012 COLORECTAL CANCER SCREENING 12/25/2012 CT COLONOGRAPHY 12/25/2012 FECAL OCCULT BLOOD TEST 12/25/2012 FIT Testing (1 year) 12/25/2012 ANNUAL PHYSICAL 12/17/2017 HEPATITIS C SCREENING 12/17/2017 Pneumococcal Vaccine 50+ (1 of 1 - PCV) 12/25/2017 ZOSTER VACCINE (1 of 2) 12/25/2017 COVID-19 Vaccine (1 - 2023- season) 2023 INFLUENZA VACCINE 12/17/2024 [facility] Care Teams Trestle Builder Relationship Specialty Start Date End Date Steven Macario MD [address] [facility] [address] ATTN: [place] [address] PCP - General Emergency Medicine 12/17/17
[2024-11-03 14:58] VITALS: BP 130/93; PULSE 70; RESP 16; O2SAT 95; BMI 25.7
--- NOTE | 2024-11-03 15:20 | A.OFFVIS_ITS ---
[facility] Disclaimer: The information contained in this section may have been updated after the patient was seen, as this information can be updated by other users. Medical History Lung nodule Carpal tunnel syndrome Insomnia Major depressive disorder Kidney stones Hepatitis Depression CVA (cerebral vascular accident) COPD (chronic obstructive pulmonary disease) GERD (gastroesophageal reflux disease) Hyperlipidemia LDL goal <100 Hypertension Anxiety Surgical History Hx of tubal ligation Hx of tonsillectomy H/O total hysterectomy LAVH, BSO in 2006 History of appendectomy Family History Mother Cancer breast Grandmother Cancer breast Social History Smoking Status: Current some day smoker second hand exposure: Yes alcohol intake: never substance use type: marijuana current occupational status: other Travel in the last 8 weeks?: None household members: none housing: house number of children: 4 current occupational exposures/hazards: No caffeine: Yes PM Subjective & Objective Subjective Subjective:: Patient is a pleasant 58-year-old female who presents today for follow-up of her first lumbar medial branch block bilaterally L3-L4 and L4-L5 on 09/30/2024. Patient states that she noticed absolutely no improvement with this injection and never even felt. Patient states she continues to have the chronic back pain as well as residual symptoms from her prior stroke with numbness. Patient is prescribed ropinirole 0.5 mg at bedtime, methocarbamol 500 mg 3 times a day and compounded cream. Her Nigel has been reviewed and is appropriate. Review of Systems: General: No recent weight changes, no fever, no sleep disturbances Respiratory: No cough, no shortness of air, no recurring pulmonary infections Cardiovascular/peripheral vascular: No chest pain, no palpitations, no edema, no shortness of breath Gastrointestinal: No new onset incontinence, normal bowel movements reported Genitourinary: No new onset incontinence Musculoskeletal: Chronic back pain Psychiatric: [Normal mood/affect] Neurological: [Denies weakness in extremities], [denies balance issues] Pain at rest (0-10 scale): 9 Objective Objective:: Physical Exam: General: Alert and oriented x3, no acute distress, pleasant and cooperative Lungs: Respirations even and unlabored, symmetrical chest expansion Eyes: PERRL Musculoskeletal: Flexion and extension of lumbar [spine] somewhat guarded secondary to pain, [antalgic gait noted] Neurological: Speech clear, no gross sensory deficit Has patient had previous pain injection?: Yes What percentage of improvement in pain since last injection?: Minimal Conservative treatment options previously tried: Home exercise plan Length of treatment: Longer than 12-week Meds Home Medications and Allergies Home Medications ?Medication ?Instructions ?Recorded ?Confirmed ?Type buprenorphine 8 mg-naloxone 2 mg 1 tab sublingual KYE Y 02/26/24 11/03/24 History sublingual tablet ergocalciferol (vitamin D2) 1,250 1,250 mcg PO WEEKLY 02/26/24 11/03/24 History mcg (50,000 unit) capsule (Vitamin D2) meloxicam 15 mg tablet 15 mg PO DAILY #14 tabs 02/09/1011/03/24 Rx fluticasone 500 mcg-salmeterol 50 1 inh inhalation BID 90 days #180 06/19/24 11/03/24 Rx mcg/dose blistr powdr for ea inhalation (Advair Diskus) atorvastatin 10 mg tablet See Rx Instructions .Route 0 07/10/24 11/03/24 Rx .COMPLEX #90 tabs suzetrigine 50 mg tablet (Journavx) 50 mg PO BID #28 t abs 07/31/24 11/03/24 Rx albuterol sulfate 90 mcg/actuation See Rx Instructions .Route 08/07/24 11/03/24 Rx breath activated powder inhaler .COMPLEX #1 ea (ProAir RespiClick) amantadine HCl 100 mg tablet 100 mg PO DAILY 08/28/24 11/03/24 History montelukast 10 mg tablet 10 mg PO QPM 90 days #90 tab s 08/28/24 11/03/24 Rx estradiol 2 mg tablet See Rx Instructions .Route 0 09/01/24 11/03/24 Rx .COMPLEX #90 tabs methocarbamol 500 mg tablet See Rx Instructions .Route 09/22/24 11/03/24 Rx .COMPLEX #90 tabs quetiapine 25 mg tablet (Seroquel) 12.5 - 25 mg (0.5 - 1 x 25 mg) PO 09/22/24 11/03/24 Rx HS PRN insomnia #30 tabs ropinirole 0.5 mg tablet 0.5 mg PO HS #30 tabs 11/03/24 Rx lisinopril 10 mg tablet See Rx Instructions .Route 0 10/28/24 11/03/24 Rx .COMPLEX #90 tabs desvenlafaxine succinate 50 mg 50 mg PO DAILY #90 tabs 10/30/24 11/03/24 Rx tablet,extended release 24 hr New Prescriptions to Start Prescriptions: Allergies Allergy/AdvReac Type Severity Reaction Status Date / Time hydrocodone AdvReac Nausea Verified 09/24/24 13:10 Assessment and Plan *Assessment and plan (1) Lower back pain: Status: Acute Qualifiers: Chronicity: chronic Back pain laterality: bilateral Sciatica presence: without sciatica Qualified Code(s): M54.50 - Low back pain, unspecified; G89.29 - Other chronic pain Category: Medical Code(s): M54.50 - Low back pain, unspecified (2) Lumbar disc disease with radiculopathy: Status: Chronic Category: Medical Code(s): M51.16 - Intervertebral disc disorders with radiculopathy, lumbar region Plan I will make sure the patient does have refills on her ropinirole and methocarbamol. Patient will return to clinic in 1 month. I did discuss with her that I will reach out to [employer] representatives who will be working to see about any additional information about getting the stimulator trial approved. Patient agrees with this plan of care. Patient has been instructed to contact the clinic with any concerns before the next appointment. Dr. Lu has reviewed this note and agrees with this plan of care. This note was dictated using voice recognition software and make contain errors or omissions. All injections are used with Lidocaine, Bupivacaine and dexamethasone. Occasionally urine drug screen is needed to verify patient's compliance with our office pain contract. This is ordered based off specific treatments related to chronic pain with the potential to abuse certain medications.
== END 2024-11-03 23:59 | disposition home or self-care (01) ==
PROVIDERS: PCP Nurse Practitioner Family; Visit Provider Nurse Practitioner Family
DX: M51.16 Intervertebral disc disorders with radiculopathy, lumbar region (principal); G89.29 Other chronic pain; Z79.899 Other long term (current) drug therapy

== ENCOUNTER 2024-12-03 12:57 | Outpatient (CLI) | payer OTHER, SELFPAY ==
--- OUTSIDE RECORDS SUMMARY | 2024-12-03 13:01 | XMS_ITS | Clinical Summary ---
Author Organization [employer] ([place], [place], [place], [place]) Address [address] [place] [address] Care Team Providers Care Can Tender Name Role Phone Unavailable Primary Care [...]
--- OUTSIDE RECORDS SUMMARY | 2024-12-03 13:01 | XMS_ITS | Encounter Summary ---
Author Organization [employer] ([place], [place], [place], [place]) Address [address] [place] [address] Care Team Providers Care School Supervisor Name Role Phone Unavailable Primary Care Provider Unavailabl e Encounter Details Date Type Department Care Team (Late st Contact Info) Description 01/22/2020 Transcribed Document [facility] [place] Family Medicine [facility] [address] ProviderFemi MD [address] [place] [address] Social History Tobacco Use Types [...] Femi Boo MD - 01/22/2020 9:40 AM SENIOR QUALITY ASSURANCE ENGINEER KATT MADDOX [address] [place] [address] 01/17/2020 During a recent visit to our [...] may call our physician referral line at [phone], Sunday through Sunday, to assist with establishing care with a doctor. Results for all test performed may be obtained by contacting our medical records department at [phone]. The medical records department will further instruct you on how. to obtain these results. If a referral to a specialist is also needed they will be listed here: [__] JOANNE HARRINGTON Emergency Department documented in this encounter Plan of Treatment Not on file documented as of this encounter Visit Diagnoses Not on filedocumented in this encounter
--- OUTSIDE RECORDS SUMMARY | 2024-12-03 13:01 | XMS_ITS | Encounter Summary ---
Author Organization [employer] ([place], [place], [place], [place]) Address [address] [place] [address] Care Team Providers Care Rn Intake Name Role Phone Unavailable Primary Care Provider Unavailabl e Encounter Details Date Type Department Care Team (Late st Contact Info) Description 01/17/2020 Transcribed Document [facility] [place] [facility] [place] [address] ProviderFemi MD [address] [place] [address] Social History Tobacco Use Types Packs/Day Years Used Date Smoking Tobacco: Never Assessed Comments Unknown Sex and Gender Information Value Date Recorded Sex Assigned at Not on file Legal Sex Female 4:49 PM CDT Gender Identity Not on file Sexual Orientation Not on file documented as of this encounter Miscellaneous Notes * Cerner Conversion Note - Femi oBo MD - 01/17/2020 6:51 PM CDT ED Triage Entered On: 01/17/2020 19:02 EDT Performed On: 01/17/2020 18:56 EDT by YAZAN PAGAN RN ED Triage Across the Room Chief Complaint : c/o multiple ulcers L foot, R eyebrow, R wrist x 2 weeks. hx of same to finger, treated at [facility] er Triage Date/Time : 01/17/2020 18:56 EDT YAZAN PAGAN RN - 01/17/2020 18:56 EDT DCP GENERIC CODE Tracking Acuity : 3 - Urgent Tracking Group : [facility] ED YAZAN PAGAN RN - [...] 19:02:19 EDT) Problems(Active) HLD (hyperlipidemia) (SNOMED CT :16880447 ) Name of Problem: HLD (hyperlipidemia) ; Recorder: YAZAN PAGAN RN; Confirmation: Confirmed ; Classification: Medical ; Code: 83220206 ; Contributor System: [employer]Info ; Last Updated: 01/17/2020 19:00 EDT ; Life Cycle Date: 01/17/2020 ; Life Cycle Status: Active ; Vocabulary: SNOMED CT HTN (hypertension) (SNOMED CT :4923010704 ) Name of Problem: HTN (hypertension) ; Recorder: YAZAN PAGAN RN; Confirmation: Confirmed ; Classification: Medical ; Code: [id number] ; Contributor System: [employer]Info ; Last Updated: 01/17/2020 19:00 EDT ; Life Cycle Date: 01/17/2020 ; Life Cycle Status: Active ; Vocabulary: SNOMED CT Diagnoses(Active) Wound infection - complicated Date: 01/17/2020 ; Diagnosis Type: Reason For Visit ; Confirmation: Complaint of ; Clinical Dx: Wound infection - complicated ; Classification: Medical ; Clinical Service: Emergency medicine ; Code: PNED ; Probability: 0 ; Diagnosis Code: [id number] ED Height and Weight Height Source : Stated Height Entry Format : [place] Height, Feet : 5 ft(Converted to: 152 cm, 60 Inch) Height, Inches : 3 Inch(Converted to: 0 ft 3 Inch, 7.62 cm) Clinical Height : 160.02 cm Weight Source, ED : Critical estimated dosing weight Weight Entry Format : [place] Weight, Pounds : 105 lb Clinical Dosing Weight : 47.73 kg Body Surface Area (BSA) : 1.47 m2 Body Mass Index : 18.6 kg/m2 (LOW) [place] Body Weight (IBW) : 52.02 kg YAZAN PAGAN RN - 01/17/2020 18:56 EDT Electronically signed by Megha Weaver Conversion Certified Juvenile Probation Officer Cerner at 07/03/2022 3:15 PM CDT documented in this encounter Plan of Treatment Not on file documented as of this encounter Visit Diagnoses Not on filedocumented in this encounter
--- OUTSIDE RECORDS SUMMARY | 2024-12-03 13:01 | XMS_ITS | Encounter Summary ---
Author Organization [employer] ([place], [place], [place], [place]) Address [address] [place] [address] Care Team Providers Care Roller Leveler Operator Name Role Phone Unavailable Primary Care Provider Unavailabl e Encounter Details Date Type Department Care Team (Late st Contact Info) Description 01/17/2020 Transcribed Document [facility] [place] [facility] [place] [address] ProviderFemi MD [address] [place] [address] Social History Tobacco Use Types [...] 9:02 PM CDT Electronically signed by Meg [facility] Conversion String Studies Director Cerner at 07/03/2022 3:17 PM CDT documented in this encounter Plan of Treatment Not on file documented as of this encounter Visit Diagnoses Not on filedocumented in this encounter
--- OUTSIDE RECORDS SUMMARY | 2024-12-03 13:01 | XMS_ITS | Encounter Summary ---
Author Organization [employer] ([place], [place], [place], [place]) Address [address] [place] [address] Care Team Providers Care Composition Weatherboard Applier Name Role Phone Unavailable Primary Care Provider Unavailabl e Encounter Details Date Type Department Care Team (Late st Contact Info) Description 01/17/2020 Transcribed Document [facility] [place] Family Medicine [address] [place] [address] ProviderFemi MD [address] [place], [place] [address] Social History Tobacco Use Types Packs/Day Years [...] : Low risk (0) Broset Interventions : [place] precautions for safety used SEBASTIAN VALDES RN - 01/17/2020 20:14 EDT Electronically signed by Megha Weaver Conversion Superintendent Drilling And Production Cerner at 07/03/2022 3:10 PM CDT documented in this encounter Plan of Treatment Not on file documented as of this encounter Visit Diagnoses Not on filedocumented in this encounter
--- OUTSIDE RECORDS SUMMARY | 2024-12-03 13:01 | XMS_ITS | Clinical Summary ---
Author Organization [facility] Address [address] [place] [address] Care Team Providers Care Supervisor Drying And Winding Name Role Phone Steven Macario MD Primary Care Provider [phone] Allergies No known active allergies Medications Ventolin [...] 06/09/2015 [facility]-Zoster Vaccines (1 of 2) 12/25/2017 [id number] Vaccine (4 - 2024- season) 2024 02/03/2021, 07/23/2020, 06/22/2020 [facility]-Influenza Vaccine (#1) 2024 [...] Narrative SUNQUEST - 03/31/1991 12:00 AM EST [facility] MR #: [id number] [facility] KATT MADDOX [place], [place] [address] 1965 (Age: 25) FW Collect Date: 03/21/1991 00:00 Receipt Date: 03/21/1991 00:00 Page 1 DEPARTMENT OF PATHOLOGY AND LABORATORY MEDICINE CYTOPATHOLOGY REPORT Email: [email or web address] * Converted Case * This report may [...] results is suggested (please call Microbiology at [phone] for results). CLINICAL INFORMATION: Menstrual History: {Not Provided} Date of Last Menstrual Period: {Not Provided} SPECIMEN DESCRIPTION: A: CERVICAL/VAGINAL SMEAR, PAP ICD: F: {Not Entered} SNOMED CODES: 1; [id number] In cases where a pathologist has signed out the report, the service has been rendered in part by a resident. The signing pathologist has performed and is responsible for the reported pathologic evaluation. us Historical Provider LAB PATHOLOGY ORDERABLES Fin al Result SUNVyu from Last 3 Months or Most Recently Relevant to Health Maintenance Insurance [employer] Care Teams Supervisor Drying And Winding Relationship Specialty Start Date End Date Steven Macario MD [address] [place] [address] PCP - General 07/30/20
--- OUTSIDE RECORDS SUMMARY | 2024-12-03 13:01 | XMS_ITS | Encounter Summary ---
Author Organization [employer] ([place], [place], [place], [place]) Address [address] [place] [address] Care Team Providers Care Sheet Metal Assembler And Riveter Name Role Phone Unavailable Primary Care Provider Unavailabl e Encounter Details Date Type Department Care Team (Late st Contact Info) Description 01/18/2020 Transcribed Document [facility] [place] [facility] [place] [address] ProviderFemi MD [address] [place] [address] Social History Tobacco Use Types Packs/Day Years Used Date Smoking Tobacco: Never Assessed Comments Unknown Sex and Gender Information Value Date Recorded Sex Assigned at Not on file Legal Sex Female 4:49 PM CDT Gender Identity Not on file Sexual Orientation Not on file documented as of this encounter Miscellaneous Notes * Cerner Conversion Note - Historical ProviderMD - 01/18/2020 10:07 AM CONTROLS DESIGNER CR Chest 1 Vw Portable Ordered: 01/17/2020 [...]
--- OUTSIDE RECORDS SUMMARY | 2024-12-03 13:01 | XMS_ITS | Encounter Summary ---
Author Organization [employer] ([place], [place], [place], [place]) Address [address] [place] [address] Care Team Providers Care Dryer Operator Name Role Phone Unavailable Primary Care Provider Unavailabl e Encounter Details Date Type Department Care Team (Late st Contact Info) Description 01/17/2020 Transcribed Document [facility] [place] [address] [place] [address] ProviderFemi MD [address] [place] [address] Social History Tobacco Use Types [...]
--- OUTSIDE RECORDS SUMMARY | 2024-12-03 13:01 | XMS_ITS | Encounter Summary ---
Author Organization [employer] ([place], [place], [place], [place]) Address [address] [place] [address] Care Team Providers Care Lockstitch Cup Setter Name Role Phone Unavailable Primary Care Provider Unavailabl e Encounter Details Date Type Department Care Team (Late st Contact Info) Description 01/17/2020 Transcribed Document [facility] [place] [facility] [place] [address] ProviderFemi MD [address] [place] [address] Social History Tobacco Use Types Packs/Day [...] Communication Barrier : None Primary Language : Slovak Any Spiritual/Cultural Needs or Requests : No [...]
--- OUTSIDE RECORDS SUMMARY | 2024-12-03 13:01 | XMS_ITS | Encounter Summary ---
Author Organization [employer] ([place], [place], [place], [place]) Address [address] [place] [address] Care Team Providers Care Traction Power Engineer Name Role Phone Unavailable Primary Care Provider Unavailabl e Encounter Details Date Type Department Care Team (Late st Contact Info) Description 01/17/2020 Transcribed Document [facility] [place] [address] [place] [address] ProviderFemi MD [address] [place] [address] Social History Tobacco Use Types [...] Boo MD - 01/17/2020 9:14 PM CDT [facility] [place] [address] KATT MADDOX :1965 Visit Time:01/17/2020 [...] 3 days Where: [place] [address]- Business (1) Follow Up with NOT LISTED [...] range between ( 0.0 and 7.0 ) [place] #: 0.90 K/uL -- Normal range between ( 0.16 and 1.00 ) Eos #: 0.17 x10(3)/uL -- Normal range between ( 0.00 and 0.80 ) [place] %: 10.2 % -- Normal range between [...] these instructions at home: Medicines ??? Take gayk-hqm-udywffk and prescription medicines only as told by [...] as antibiotic medicines or antihistamines. ??? Take jfie-wgb-xlmwxqm and prescription medicines only as told by [...] 12/13/2005 Document Revised: 07/25/2018 Document Reviewed: 07/25/2018 [employer] Patient Education ?? 2020 [employer] Emergency Awareness and Preventative Care STROKE [...] Assistance with quitting is available by contacting 0-408-BJSB-NOW. This is a free resource providing counseling, [...] was given the opportunity to ask questions. Patient/Stone Polisher Machine Name: Patient/Stone Polisher Machine Signature: Relationship to Patient: Clinician/Hospital Stone Polisher Machine Signature: Please Provide a Telephone Number Where You Can Be Reached: Is it Permissible To Leave a Message? Date: documented in this encounter Plan of Treatment Not on file documented as of this encounter Visit Diagnoses Not on filedocumented in this encounter
--- OUTSIDE RECORDS SUMMARY | 2024-12-03 13:01 | XMS_ITS | Encounter Summary ---
Author Organization [employer] ([place], [place], [place], [place]) Address [address] [place] [address] Care Team Providers Care Blood Bank Custodian Name Role Phone Unavailable Primary Care Provider Unavailabl e Encounter Details Date Type Department Care Team (Late st Contact Info) Description 01/22/2020 Transcribed Document [facility] [place] [facility] [place] [address] ProviderFemi MD [address] [place] [address] Social History Tobacco Use Types Packs/Day [...] Femi Boo MD - 01/22/2020 9:40 AM CLOTHING PATTERN PREPARER Blood Culture Collected: 01/17/2020 20:07 Bacil Complete [...]
--- OUTSIDE RECORDS SUMMARY | 2024-12-03 13:01 | XMS_ITS | Referral Summary ---
Author Organization [facility] ([place], [place], [place], [place]) Address [address] [place] [address] Care Team Providers Care Automatic Machine Attendant Name Role Phone Unavailable Primary Care Provider [...]
--- OUTSIDE RECORDS SUMMARY | 2024-12-03 13:01 | XMS_ITS | Encounter Summary ---
Author Organization [employer] ([place], [place], [place], [place]) Address [address] [place] [address] Care Team Providers Care Information Systems Consultant Name Role Phone Unavailable Primary Care Provider Unavailabl e Encounter Details Date Type Department Care Team (Late st Contact Info) Description 01/17/2020 Transcribed Document [facility] [place] [address] [place] [address] ProviderFemi MD [address] [place] [address] Social History Tobacco Use Types [...]
--- OUTSIDE RECORDS SUMMARY | 2024-12-03 13:01 | XMS_ITS | Encounter Summary ---
Author Organization [employer] ([place], [place], [place], [place]) Address [address] [place] [address] Care Team Providers Care Deputy Of Counter Intelligence Name Role Phone Unavailable Primary Care Provider Unavailabl e Encounter Details Date Type Department Care Team (Late st Contact Info) Description 01/17/2020 Transcribed Document [facility] [place] [facility] [place] [address] ProviderFemi MD [address] [place] [address] Social History Tobacco Use Types [...] hx of same to finger, treated at [facility] . History of Present Illness 54-year-old [...] % 27.6 % Lymph # 2.44 x10(3)/uL [place] % 10.2 % [place] # 0.90 K/uL Eos % 1.9 % [...] 21:01 EDT, Discharge to: Home. Prescriptions: Prescription Ict Systems Test Engineer Pharmacy: Keflex 500 mg oral capsule (Prescribe): 1 Cap, Oral, QID, for 10 Day(s), 40 Cap, 0 Refill(s) Bactrim DS 800 mg-160 mg oral tablet (Prescribe): 1 Tab, Oral, BID, for 10 Day(s), 20 Tab, 0 Refill(s). Patient was given the following educational materials: Cellulitis, Adult. Follow up with: NOT LISTED [facility] Within 2 to 3 days; [facility] (Find a Doc) Within 2 to 3 days. Counseled: Patient, Family, Regarding diagnosis, Regarding diagnostic results, Regarding treatment plan, Regarding prescription, Patient indicated understanding of instructions. documented in this encounter Plan of Treatment Not on file documented as of this encounter Visit Diagnoses Not on filedocumented in this encounter
--- OUTSIDE RECORDS SUMMARY | 2024-12-03 13:01 | XMS_ITS | Clinical Summary ---
[facility] Organization [facility] Address [address] [place] [address] Care Team Providers Care Filter Worker Name Role Phone Steven Macario MD Primary Care Provider [phone] Social History Tobacco Use Types Packs/Day Years [...] of 2) 12/25/2017 COVID-19 Vaccine (1 - season) 2024 INFLUENZA VACCINE 12/17/2024 [facility] Care Teams Filter Worker Relationship Specialty Start Date End Date Steven Macario MD [address] [facility] [address] ATTN: [place] [address] PCP - General Emergency Medicine 12/17/17
[2024-12-03] MEDS: ALBUTEROL 0.083% 2.5 MG/3 ML NEB IH (14:00)
== END 2024-12-03 23:59 | disposition home or self-care (01) ==
LOC: RT 12:58
PROVIDERS: PCP Nurse Practitioner Family; Visit Provider Internal Medicine Pulmonary Disease
DX: R94.2 Abnormal results of pulmonary function studies (principal); R06.02 Shortness of breath; R06.09 Other forms of dyspnea
CPT/HCPCS: 94060; 94618; 94726; 94729

== ENCOUNTER 2024-12-17 08:13 | Day surgery (SDC) | payer OTHER, SELFPAY ==
[2024-12-16 08:45] VITALS: BMI 24.7
--- NOTE | 2024-12-16 17:22 | EXP.HP ---
History of Present Illness *Admission Date: 12/17/24 *History of present illness: Mrs. Lindsay is a 58-year-old female who is here for screening colonoscopy. The examination is deemed medically necessary for screening colonoscopy. The patient has been seen, interviewed and examined prior to the procedure by both myself and the anesthesia provider. [facility] Disclaimer: The information contained in this section may have been updated after the patient was seen, as this information can be updated by other users. Medical History Lung nodule Carpal tunnel syndrome Insomnia Major depressive disorder Kidney stones Hepatitis Depression CVA (cerebral vascular accident) COPD (chronic obstructive pulmonary disease) GERD (gastroesophageal reflux disease) Hyperlipidemia LDL goal <100 Hypertension Anxiety Surgical History Hx of tubal ligation Hx of tonsillectomy H/O total hysterectomy LAVH, BSO in 2006 History of appendectomy Family History Mother Cancer breast Grandmother Cancer breast Social History (Updated 12/17/24 @ 08:35 by Adamaris Quiroz RN) Smoking Status: Current some day smoker tobacco type: cigarettes (She reports she may smoke 2 cigarettes a day.) packs per day: 1 second hand exposure: Yes alcohol intake: never substance use type: crack/cocaine, opiates, club/lead level designer drugs and methamphetamine current occupational status: disabled Travel in the last 8 weeks?: None household members: none housing: house number of children: 3 current occupational exposures/hazards: No caffeine: Yes Have you lived/traveled outside US in past 30 days?: No Contact w/someone who lives/traveled outside US past 30 days?: No Exposure to someone with infectious disease in past 14 days?: No Do you have a fever (greater than 100.4 F or 38 C)?: No Have you tested positive for COVID-19?: No Exposed to someone with COVID-19 in past 14 days?: No Do you have a sore throat?: No Do you have a cough?: No Do you have any weakness?: No Are you experiencing any nausea/vomitting?: No Do you have any diarrhea?: No Are you experiencing any unusual bleeding?: No Do you have any muscle aches/pain?: No Do you have any abdominal pain?: No Are you experiencing loss of taste or smell?: No Other Medical History Have you received the Flu Vaccine for this season: Yes Have you received the Pneumonia Vaccine: Yes Review of Systems Review of Systems Review of systems (narrative): Negative *Cardiovascular Comments: Negative *Gastrointestinal Comments: Negative *Genitourinary Comments: Negative *Musculoskeletal Comments: Negative *Neurologic Comments: Negative Meds Home Medications and Allergies Home Medications ?Medication ?Instructions ?Recorded ?Confirmed ?Type buprenorphine 8 mg-naloxone 2 mg 1 tab sublingual DAILY 02/26/24 12/17/24 History sublingual tablet ergocalciferol (vitamin D2) 1,250 1,250 mcg PO WEEKLY 02/26/24 12/17/24 History mcg (50,000 unit) capsule (Vitamin D2) fluticasone 500 mcg-salmeterol 50 1 inh inhalation BID 90 days #180 06/19/24 12/17/24 Rx mcg/dose blistr powdr for ea inhalation (Advair Diskus) atorvastatin 10 mg tablet See Rx Instructions .Route 07/10/24 12/17/24 Rx .COMPLEX #90 tabs amantadine HCl 100 mg tablet 100 mg PO DAILY 08/28/24 12/17/24 History montelukast 10 mg tablet 10 mg PO QPM 90 days #90 tabs 08/28/24 12/17/24 Rx estradiol 2 mg tablet See Rx Instructions .Route 09/01/24 12/17/24 Rx .COMPLEX #90 tabs desvenlafaxine succinate 50 mg 50 mg PO DAILY #90 tabs 10/30/24 12/17/24 Rx tablet,extended release 24 hr methocarbamol 500 mg tablet See Rx Instructions .Route 11/03/24 12/17/24 Rx .COMPLEX #90 tabs ropinirole 0.5 mg tablet 0.5 mg PO HS #30 tabs 11/03/24 12/17/24 Rx albuterol sulfate 90 mcg/actuation See Rx Instructions .Route 12/03/24 12/17/24 Rx breath activated powder inhaler .COMPLEX #1 ea (ProAir RespiClick) nicotine (polacrilex) 2 mg gum 2 mg buccal Q2H PRN nicotine 12/11/24 12/17/24 Rx cravings #100 ea peg 3350-electrolytes 236 240 ml PO Q10M #4,000 mL 12/16/24 12/17/24 Rx gram-22.74 gram-6.74 gram-5.86 gram solution (Golytely) New Prescriptions to Start Prescriptions: Allergies Allergy/AdvReac Type Severity Reaction Status Date / Time hydrocodone AdvReac Nausea Verified 12/17/24 08:29 Exam Data for Last 24 hours I & O for Last 24 hours: Intake & Output 12/13/24 12/14/24 12/15/24 12/16/24 23:59 23:59 23:59 23:59 Weight 140 lb *Routine HEENT Exam Head: Present normocephalic Eye: Present EOMI and PERRL ENT: Present mucous membranes moist *Routine Neck Exam Neck: Present supple *Routine Respiratory Exam Respiratory: Present CTA bilaterally *Routine Cardiovascular Exam Cardiovascular: Present RRR *Routine Abdominal Exam Abdominal: Present soft and normoactive bowel sounds; Absent tenderness *Routine Rectal Exam Rectal:: deferred *Routine Genitalia Exam Genitalia:: deferred *Routine Extremities Exam Extremities: Absent cyanosis, clubbing or edema *Routine Skin Exam Skin: Present warm; Absent rash *Routine Neurological Exam Neurological: Present alert and oriented X3 Assessment and Plan *Assessment and plan (1) Screening for colon cancer: Status: Acute Category: Medical Code(s): Z12.11 - Encounter for screening for malignant neoplasm of colon Plan A/P: 1. Screening for colon cancer is the preprocedural diagnosis. The patient will be anesthetized/sedated using MAC sedation. The patient has been seen and examined. Cardiac and lung assessment prior to the examination is stable. Proceed with planned screening colonoscopy.
--- NOTE | 2024-12-17 07:08 | P.PCN_ITS ---
[facility] Procedure Note Date: 12/17/24 Time: 10:08 Procedure Note:: Colonoscopy Procedure Report: Colonoscopy with cold snare polypectomy Endoscopist: Taurus Teixeira II, MD Referring physician: JASMIN Andres Date of Procedure: December 17, 2024 Equipment: Olympus [id number] adult colonoscope Sedation: MAC sedation Indication: Mrs. Lindsay is a 58-year-old female who is here for screening colonoscopy. The patient's last colonoscopy was over 30 years ago. She reports no abdominal pain, weight loss, change in her bowel habits or rectal bleeding. She reports no family history of colon cancer. The examination is deemed medically necessary for screening colonoscopy. Procedure: Prior to the procedure, a history and physical exam was performed, and patient's medications and allergies were reviewed. The risks, benefits and alternatives of the sedation and procedure were discussed with the patient. All questions were answered and informed consent was obtained. The patient was brought to the procedure room. Patient identification and proposed procedure were verified by the physician and the nurse. The patient was placed in a left lateral decubitus position and the scope was passed under direct vision. Throughout the procedure, the patient's blood pressure, pulse, and oxygen saturations were monitored continuously. The colonoscopy was accomplished without difficulty. The patient tolerated the procedure well. Findings: On digital rectal examination there was normal rectal tone. There were no external hemorrhoids. The colonoscope was introduced through the anal canal to the rectum and advanced to the cecum. The ileocecal valve and appendiceal orifice were identified. The scope was advanced a short distance into the ileum which appeared grossly normal. The scope was then withdrawn into the colon. The cecum, ascending and transverse colon and mucosa were grossly normal. There were scattered diverticuli throughout the descending and sigmoid colon (LEFT colon). There were 2 diminutive polyps in the sigmoid colon (3 and 4 mm) which were removed via cold snare polypectomy. The rectum itself was normal. Upon retroflexion within the rectum there were grade 1-2 internal hemorrhoids. The preparation was fair throughout with [place] Preparation Score of 7 out of 9. There was some plant residue. The cecal time was 14 minutes. Impression: 1. Diminutive colonic polyps x 2 2. Mild left-sided diverticulosis 3. Grade 1-2 internal hemorrhoids Plan: I will follow-up the polyp histology and recommend repeat screening/surveillance colonoscopy again in 7 to 10 years based upon the pathology. I would encourage psyllium bulking fiber supplementation.
[2024-12-17 08:31] VITALS: BP 137/87; PULSE 67; RESP 18; TEMP 36.6; O2SAT 95
[2024-12-17] MEDS: LACTATED RINGERS 1000ML 1,000 ML 50 ML IV (08:43)
--- NOTE | 2024-12-17 09:52 | EXP.ANES.CKL ---
[facility] Disclaimer: The information contained in this section may have been updated after the patient was seen, as this information can be updated by other users. Medical History Lung nodule Carpal tunnel syndrome Insomnia Major depressive disorder Kidney stones Hepatitis Depression CVA (cerebral vascular accident) COPD (chronic obstructive pulmonary disease) GERD (gastroesophageal reflux disease) Hyperlipidemia LDL goal <100 Hypertension Anxiety Surgical History Hx of tubal ligation Hx of tonsillectomy H/O total hysterectomy History of appendectomy Family History Mother Cancer Grandmother Cancer Social History Smoking Status: Current some day smoker tobacco type: cigarettes (She reports she may smoke 2 cigarettes a day.) packs per day: 1 second hand exposure: Yes alcohol intake: never substance use type: crack/cocaine, opiates, club/building components designer drugs and methamphetamine current occupational status: disabled Travel in the last 8 weeks?: None household members: none housing: house number of children: 3 current occupational exposures/hazards: No caffeine: Yes Have you lived/traveled outside US in past 30 days?: No Contact w/someone who lives/traveled outside US past 30 days?: No Exposure to someone with infectious disease in past 14 days?: No Do you have a fever (greater than 100.4 F or 38 C)?: No Have you tested positive for COVID-19?: No Exposed to someone with COVID-19 in past 14 days?: No Do you have a sore throat?: No Do you have a cough?: No Do you have any weakness?: No Are you experiencing any nausea/vomitting?: No Do you have any diarrhea?: No Are you experiencing any unusual bleeding?: No Do you have any muscle aches/pain?: No Do you have any abdominal pain?: No Are you experiencing loss of taste or smell?: No [facility] Anesthesia Checklist Patient Identification Patient Identification: Arm Band and Verbal (Name & ) Structural Data Admitted From: Home Planned Operative Procedure/s: colonscopy Consent for Planned Operative Procedure(s) Verified: Yes Verified Documents: Surgical Consent and History and Physical NPO Status Verified Time NPO: 00:00 Additional verifications Anesthesia Reactions: No Hx Blood Transfusions: No Blood Transfusion Reaction: No Previous Colonoscopy: Yes Airway Assessment Mallampati Score:: Class II Dentition: Edentulous Neurological Assessment Level of Consciousness: Awake, Alert and Appropriate Anesthesia Plan Anesthesia Risk discussed: Yes Anesthesia Plan: Verified ASA Class: III Anesthesia Type: MAC
[2024-12-17 10:10] VITALS: BP 129/63; PULSE 70; RESP 15; TEMP 36.2; O2SAT 96
[2024-12-17 10:20] VITALS: BP 114/52; PULSE 74; RESP 16; TEMP 36.2; O2SAT 99
[2024-12-17 10:30] VITALS: BP 111/76; PULSE 69; RESP 18; TEMP 36.2; O2SAT 99
[2024-12-17 10:40] VITALS: BP 113/77; PULSE 72; RESP 18; TEMP 36.2; O2SAT 99
== END 2024-12-17 10:46 | disposition home or self-care (01) ==
PROVIDERS: PCP Nurse Practitioner Family; Visit Provider Internal Medicine Gastroenterology
PROC: 0DJD8ZZ Inspection of Lower Intestinal Tract, Via Natural or Artificial Opening Endoscopic (ICD-10-PCS; CPT 45378; principal; 2024-12-17 10:00)
DX: Z12.11 Encounter for screening for malignant neoplasm of colon (principal); D12.5 Benign neoplasm of sigmoid colon; K57.30 Diverticulosis of large intestine without perforation or abscess without bleeding; K64.0 First degree hemorrhoids; K64.1 Second degree hemorrhoids; F17.210 Nicotine dependence, cigarettes, uncomplicated; J44.9 Chronic obstructive pulmonary disease, unspecified; I10 Essential (primary) hypertension; E78.5 Hyperlipidemia, unspecified; F32.A Depression, unspecified; F41.9 Anxiety disorder, unspecified
CPT/HCPCS: 45385; J7120

== ENCOUNTER 2024-12-30 09:51 | Day surgery (SDC) | payer OTHER, SELFPAY ==
[2024-12-23 14:38] VITALS: BMI 24.7
[2024-12-30 12:06] VITALS: BP 156/78; PULSE 69; RESP 16; TEMP 36.2; O2SAT 97; BMI 24.7
[2024-12-30] MEDS: PHENYLEPHRINE 2.5% OPHTH SOLN 2ML OP ×3 (12:15→12:25)
[2024-12-30] MEDS: CYCLOPENTOLATE 2% OPHTH SOLN 2ML BOTTLE OP ×3 (12:15→12:25)
[2024-12-30] MEDS: TETRACAINE 0.5% OPTH SOL 15ML OP ×3 (12:15→12:25)
[2024-12-30 13:36] VITALS: BP 106/56; PULSE 64; RESP 16; O2SAT 97
[2024-12-30 13:41] VITALS: BP 116/54; PULSE 61; RESP 16; O2SAT 98
[2024-12-30] MEDS: MIDAZOLAM 2MG/2ML VIAL 1 MG IV (13:42)
[2024-12-30] MEDS: TIMOLOL 0.5% OPTH SOLN 5ML OP (13:43)
[2024-12-30] MEDS: TOBRAMYCIN/DEX OPTH SUSP 2.5ML OP (13:43)
[2024-12-30] MEDS: LIDOCAINE 1% PF 2ML VIAL 2 ML IJ (13:43)
[2024-12-30 13:46] VITALS: BP 120/67; PULSE 60; RESP 16; O2SAT 98
[2024-12-30 13:55] VITALS: BP 128/77; PULSE 66; RESP 16; TEMP 36.6; O2SAT 95
--- NOTE | 2024-12-30 15:02 | P.PCN_ITS ---
[facility] Procedure Note Date: 12/30/24 Time: 15:02 Procedure Note:: Preoperative Diagnosis: Cataract combined NS Cortical Complex [Left] Eye Postop diagnosis: same Operation: Microscopic phacoemulsification with intraocular lens implant [Left] Eye Specimen: None Blood Loss: None The patient was examined in the office with a complaint of poor vision in the [left] eye. The patient reports that this interferes with ADLs such as reading, watching TV and/or driving or the vision is like looking through a foggy haze and is very troubling. The patient was examined and found to have a visually significant cataract with best corrected vision of [20/400] by refraction and/or glare testing. Treatment options, risks and benefits were explained and the patient elected to have cataract surgery in an attempt to improve their vision. The patient had the eye anesthetized with topical tetracaine, the eye ways prepped and draped in the usual fashion for cataract surgery. A paracentesis and a temporal keratotomy were made. 0.2cc of 1% lidocaine PF was placed into the anterior chamber. And aqueous/viscoelastic exchange was done and a 360 degree capsulorexis was performed. Through hydrodissection and delineation with BSS on a cannula was done. The lens nucleus was phecoemulsified with CDE of [4.17]. Residual cortical material was removed using automated I&A The capsular bag was deepened with viscoelastica and a PCIOL was placed in the capsular bag with good centration and stability. Residual viscoelastic was removed using automated I&A. The keratotomy incision was hydrated with BSS on a cannula. The wound were checked and found to be water tight. IOP was checked digitally and adjusted as needed so as not to be too high. 1 drop of timolol 0.5%, ofloxacin, prednisolone acetate and ketorolac was instilled and eye shield taped over the eye. The patient was taken to recovery in good condition and will be seen postoperatively.
== END 2024-12-30 13:59 | disposition home or self-care (01) ==
PROVIDERS: PCP Nurse Practitioner Family; Visit Provider Ophthalmology
PROC: (CPT 66984; principal; 2024-12-30 13:00)
DX: H25.812 Combined forms of age-related cataract, left eye (principal); H52.03 Hypermetropia, bilateral; J44.9 Chronic obstructive pulmonary disease, unspecified; E78.5 Hyperlipidemia, unspecified; F41.9 Anxiety disorder, unspecified; F17.210 Nicotine dependence, cigarettes, uncomplicated; F32.9 Major depressive disorder, single episode, unspecified; Z86.73 Personal history of transient ischemic attack (TIA), and cerebral infarction without residual deficits; Z79.51 Long term (current) use of inhaled steroids; Z79.899 Other long term (current) drug therapy; Z88.5 Allergy status to narcotic agent
CPT/HCPCS: 66984; J2250; V2632

== ENCOUNTER 2025-01-13 08:04 | Day surgery (SDC) | payer OTHER, SELFPAY ==
[2025-01-08 14:24] VITALS: BMI 24.7
[2025-01-13] VITALS (7 sets, daily range): BP systolic 104–134; BP diastolic 60–73; PULSE 51–69; RESP 16–18; TEMP 36.1–36.4; O2SAT 94–98
[2025-01-13] MEDS: CYCLOPENTOLATE 2% OPHTH SOLN 2ML BOTTLE OP ×3 (09:00→09:10)
[2025-01-13] MEDS: PHENYLEPHRINE 2.5% OPHTH SOLN 2ML OP ×3 (09:00→09:10)
[2025-01-13] MEDS: TETRACAINE 0.5% OPTH SOL 15ML OP ×3 (09:00→09:10)
[2025-01-13] MEDS: MIDAZOLAM 2MG/2ML VIAL 1 MG IV (10:00)
[2025-01-13] MEDS: TIMOLOL 0.5% OPTH SOLN 5ML OP (10:01)
[2025-01-13] MEDS: TOBRAMYCIN/DEX OPTH SUSP 2.5ML OP (10:01)
[2025-01-13] MEDS: LIDOCAINE 1% PF 2ML VIAL 2 ML IJ (10:01)
== END 2025-01-13 10:25 | disposition home or self-care (01) ==
PROVIDERS: PCP Nurse Practitioner Family; Visit Provider Ophthalmology
PROC: (CPT 66982; principal; 2025-01-13 10:00)
DX: H25.811 Combined forms of age-related cataract, right eye (principal); F41.9 Anxiety disorder, unspecified; J44.9 Chronic obstructive pulmonary disease, unspecified; E78.5 Hyperlipidemia, unspecified; I10 Essential (primary) hypertension; F32.9 Major depressive disorder, single episode, unspecified; F17.210 Nicotine dependence, cigarettes, uncomplicated; Z87.19 Personal history of other diseases of the digestive system; Z86.73 Personal history of transient ischemic attack (TIA), and cerebral infarction without residual deficits; Z88.5 Allergy status to narcotic agent; Z79.51 Long term (current) use of inhaled steroids; Z79.899 Other long term (current) drug therapy
CPT/HCPCS: 66982; J2250; V2632